=== PATIENT | female | born 1935 | race Caucasian/White ===

== ENCOUNTER 2019-09-15 10:37 | Outpatient (CLI) | payer MEDICARE, SELFPAY ==
[2019-09-15 10:50] LABS: Basophils Percent Auto 0.6 % (0.2-1.2); Eosinophils Absolute Auto 0.1 K/mm3 (0-0.3); Eosinophils Percent Auto 0.9 % (0-4.4); Hematocrit 47.3 % (37.0-47.0); Hemoglobin 15.8 g/dL (12.0-15.0); Immature Granulocyte Absolute 0.02 K/mm3 (0.00-0.031); Immature Granulocyte Percent A 0.3 % (0-0.5); Lymphocytes Absolute Auto 0.86 K/mm3 (0.9-3.2); Lymphocytes Percent Auto 12.9 % (18.3-44.2); Mean Corpuscular HGB Conc 33.4 g/dl (32-36); Mean Corpuscular Hemoglobin 30.8 pg (26-34); Mean Corpuscular Volume 92.2 fl (80-100); Mean Platelet Volume 11.1 fl (7.4-10.4); Monocytes Absolute Auto 0.7 K/mm3 (0.1-0.6); Neutrophils Percent Auto 75.3 % (45.5-73.1); Platelet Count Result 207 k/mm3 (150-375); Red Blood Count 5.13 M/mm3 (4.2-5.4); Red Cell Distribution Width 12.7 % (11.5-14.5); White Blood Count 6.7 K/mm3 (4.5-10.0)
[2019-09-15 10:53] LABS: Blood Urea Nitrogen 25 mg/dL (8-26); Carbon Dioxide 27 mmol/L (22-30); Chloride 102 mmol/L (98-109); Estimated Glomerular Filt Rate 60; Glucose 93 mg/dL (70-105); Potassium 4.4 mmol/L (3.5-4.9); Sodium 141 mmol/L (138-146)
[2019-09-15 11:54] LABS: Alanine Aminotransferase 16 U/L (4-35); Albumin Level 4.5 g/dL (3.5-5.1); Alkaline Phosphatase 54 U/L (38-126); Aspartate Amino Transferase 15 U/L (14-36); Bilirubin,Total 0.6 mg/dL (0.2-1.3); Blood Urea Nitrogen 24 mg/dL (7-17); Calcium 9.7 mg/dL (8.4-10.2); Carbon Dioxide 27 mmol/L (22-30); Chloride 101 mmol/L (98-107); Estimated Glomerular Filt Rate > 60; Glucose 96 mg/dL (65-105); Potassium 4.7 mmol/L (3.4-5.0); Sodium 137 mmol/L (137-145)
== END 2019-09-15 10:38 | disposition home or self-care (01) ==
LOC: ANHLAB 10:38
PROVIDERS: PCP Internal Medicine; Visit Provider Internal Medicine Hematology & Oncology
DX: D68.59 Other primary thrombophilia (principal)
CPT/HCPCS: 36415; 80048; 80053; 85025

== ENCOUNTER 2019-11-12 07:22 | Outpatient (CLI) | payer MEDICARE, SELFPAY ==
--- NOTE | 2019-11-12 | ECHO_ITS ---
Patient Info Name: Dee Dee Sánchez Age: 83 years : 1935 Gender: Female Ht: 64 in Wt: 214 lbs BSA: 2.14 m2 HR: 69 bpm BP: 154 / 81 mmHg Heart Rhythm: Sinus Rhythm Exam Date: 11/12/2019 10:26 AM Exam Location: [facility] Pulmonary Patient Status: Outpatient Admit Date: 11/12/2019 Staff Ordering Physician: PHYSICIAN NOT ON STAFF, NONSTAFF Clinical Laboratory Service Teacher: Lula Grier RDCS Attending Provider: PHYSICIAN NOT ON STAFF, NONSTAFF Exam Type: CA echo doppler color flow Study Info Indications - CHRONIC PULMONARY EMPHYSEMA R06.02 - Shortness of breath Complete two-dimensional, color flow and Doppler transthoracic echocardiogram is performed. Summary 1. Complete two-dimensional, color flow and Doppler transthoracic echocardiogram is performed. 2. Left ventricular chamber dimension is normal. 3. Left ventricular systolic function is normal, estimated at 60-65%. 4. There is mildly increased left ventricular wall thickness. 5. The left ventricular diastolic function is grade I diastolic dysfunction. 6. E/e' 22 is elevated. 7. Left atrial chamber dimension is mildly enlarged. 8. There is mild aortic valve sclerosis. 9. There is mild aortic valve regurgitation. 10. The mitral valve has moderately calcified annulus. 11. No pulmonary hypertension, estimated pulmonary arterial systolic pressure is 33 mmHg. Left Ventricle E/e' 22 is elevated. Left ventricular chamber dimension is normal. Left ventricular systolic function is normal, estimated at 60-65%. There is mildly increased left ventricular wall thickness. The left ventricular diastolic function is grade I diastolic dysfunction. Right Ventricle Right ventricular chamber dimension is normal. Right ventricular systolic function is normal. Left Atria Left atrial chamber dimension is mildly enlarged. Right Atria Right atrial chamber dimension is normal. Aortic Valve The aortic valve is trileaflet. There is mild aortic valve sclerosis. There is no aortic valve stenosis. There is mild aortic valve regurgitation. Pulmonic Valve There is no pulmonic regurgitation. Mitral Valve The mitral valve has moderately calcified annulus. There is no mitral valve stenosis. There is no mitral valve regurgitation. Tricuspid Valve There is no tricuspid valve regurgitation. No pulmonary hypertension, estimated pulmonary arterial systolic pressure is 33 mmHg. Pericardium/Pleural There is no pericardial effusion. Inferior Vena Cava Normal inferior vena cava with >50% collapse upon inspiration consistent with normal right atrial pressure, 5 mmHg. Aorta The aortic root size at the sinus of Valsalva is normal. Left Ventricular Outflow Tract Name Value Normal LVOT 2D LVOT Diameter 2.0 cm LVOT Doppler LVOT Peak Gradient 5 mmHg LVOT Mean Gradient 2 mmHg LVOT VTI 29 cm LVOT VTI/AV VTI Ratio 0.8 LVOT Stroke Volume 92 ml LVOT CO 11.7 l/min LVOT CI
--- NOTE | 2019-11-18 21:21 | P.PCNPFT_ITS ---
PFT Interpretation PFT Interpretation: DOS: 11/12/2019 REQUESTING: Dr Sergio Valenzuela DO REASON FOR TESTING: Chronic pulmonary embolism PULMONARY FUNCTION TESTS Spirometry: Normal spirometry without response to bronchodilator. FEV1 112% predicted. Lung volumes: TLC 88%, RV 88%, no restriction and no air trapping. Airway re sistance 137% increased. Diffusion: DLCO 70%, mildly decreased. Flow volume loop: Normal. IMPRESSION: Normal spirometry, lung volumes with mild decrease in DLCO. Increase in airway resistance. Compared to a study 08/06/2018 values are similar. DLCO was 64%, now 70% Airway resistance was 141%, now 137%, similar. Juliette Horton MD
--- NOTE | 2019-11-18 21:30 | WPDSIXMINUTE ---
Six Minute Walk Six Minute Walk: DOS: 11/12/2019 REQUESTING: Sergio Valenzuela DO REASON FOR TESTING: Chronic pulmonary embolism SIX MINUTE WALK This test was conducted per ATS guidelines. The initial saturation was 96%and pulse was 63. The patient walked for 6 minutes without stopping, with final saturation 96% and pulse 88. Distance walked was 600 feet / 182 meters. IMPRESSION: No supplemental oxygen indicated with exertion.
== END 2019-11-12 07:23 | disposition home or self-care (01) ==
PROVIDERS: PCP Internal Medicine
DX: I27.82 Chronic pulmonary embolism (principal); I34.0 Nonrheumatic mitral (valve) insufficiency; I35.1 Nonrheumatic aortic (valve) insufficiency
CPT/HCPCS: 93306; 94060; 94618; 94726; 94729

== ENCOUNTER 2020-06-28 13:09 | Outpatient (CLI) | payer MEDICARE, SELFPAY ==
[2020-06-28 13:25] LABS: Basophils Percent Auto 0.3 % (0.2-1.2); Eosinophils Absolute Auto 0.2 K/mm3 (0-0.3); Eosinophils Percent Auto 2.9 % (0-4.4); Hematocrit 46.8 % (37.0-47.0); Hemoglobin 15.5 g/dL (12.0-15.0); Lymphocytes Absolute Auto 1.03 K/mm3 (0.9-3.2); Lymphocytes Percent Auto 17.4 % (18.3-44.2); Mean Corpuscular HGB Conc 33.1 g/dl (32-36); Mean Corpuscular Volume 90.5 fl (80-100); Mean Platelet Volume 10.7 fl (7.4-10.4); Monocytes Absolute Auto 0.5 K/mm3 (0.1-0.6); Monocytes Percent Auto 7.9 % (2.6-8.5); Neutrophils Absolute Auto 4.2 K/mm3 (1.3-6.7); Neutrophils Percent Auto 71.5 % (45.5-73.1); Platelet Count Result 225 k/mm3 (150-375); Red Blood Count 5.17 M/mm3 (4.2-5.4); Red Cell Distribution Width 13.6 % (11.5-14.5); White Blood Count 5.9 K/mm3 (4.5-10.0)
== END 2020-06-28 13:10 | disposition home or self-care (01) ==
LOC: ANHLAB 13:10
PROVIDERS: PCP Internal Medicine; Visit Provider Internal Medicine Hematology & Oncology
DX: D75.1 Secondary polycythemia (principal)
CPT/HCPCS: 36415; 85025

== ENCOUNTER → 2020-08-18 11:16 | Outpatient (CLI) | payer MEDICARE, SELFPAY ==
--- NOTE | ~2020-08-18 | MM_ITS ---
EXAMINATION: MM screening rayray BI w wilfrido HISTORY: Screening mammogram TECHNIQUE: Craniocaudal and mediolateral oblique 3-D tomosynthesis images were obtained and synthetic 2-D images were generated. CAD analysis was submitted and interpreted. COMPARISON: No prior mammogram is available for comparison at this institution. BREAST PARENCHYMAL COMPOSITION: The breasts are almost entirely fatty. FINDINGS: Scattered bilateral benign calcifications. There is no evidence of suspicious mass, calcifi cation, or architectural distortion to suggest malignancy in either breast. There has been no suspici ous interval change. IMPRESSION: 1. No mammographic evidence of malignancy. 2. Recommend routine screening mammography in one year. BI-RADS Category 2: Benign finding(s). Reviewed, dictated and finalized at location A.
== END ==
PROVIDERS: Visit Provider Internal Medicine
DX: Z12.31 Encounter for screening mammogram for malignant neoplasm of breast (principal)
CPT/HCPCS: 77063; 77067

== ENCOUNTER 2021-02-07 12:35 | Outpatient (CLI) | payer MEDICARE, SELFPAY ==
[2021-02-07 13:01] LABS: Basophils Absolute Auto 0.1 K/mm3 (0.0-0.1); Basophils Percent Auto 0.8 % (0.2-1.2); Eosinophils Absolute Auto 0.1 K/mm3 (0-0.3); Eosinophils Percent Auto 1.4 % (0-4.4); Hematocrit 44.3 % (37.0-47.0); Immature Granulocyte Absolute 0.01 K/mm3 (0.00-0.031); Immature Granulocyte Percent A 0.2 % (0-0.5); Mean Corpuscular HGB Conc 33.9 g/dl (32-36); Mean Corpuscular Hemoglobin 30.2 pg (26-34); Mean Corpuscular Volume 89.3 fl (80-100); Mean Platelet Volume 10.6 fl (7.4-10.4); Monocytes Absolute Auto 0.7 K/mm3 (0.1-0.6); Monocytes Percent Auto 10.9 % (2.6-8.5); Neutrophils Absolute Auto 4.7 K/mm3 (1.3-6.7); Neutrophils Percent Auto 72.7 % (45.5-73.1); Platelet Count Result 231 k/mm3 (150-375); Red Blood Count 4.96 M/mm3 (4.2-5.4); Red Cell Distribution Width 13.2 % (11.5-14.5); White Blood Count 6.4 K/mm3 (4.5-10.0)
== END 2021-02-07 12:36 | disposition home or self-care (01) ==
LOC: ANHLAB 12:37
PROVIDERS: Visit Provider Internal Medicine Hematology & Oncology
DX: D75.1 Secondary polycythemia (principal)
CPT/HCPCS: 36415; 85025

== ENCOUNTER 2021-08-01 10:31 | Outpatient (CLI) | payer MEDICARE, SELFPAY ==
[2021-08-01 10:49] LABS: Basophils Percent Auto 0.4 % (0.2-1.2); Eosinophils Absolute Auto 0.2 K/mm3 (0-0.3); Eosinophils Percent Auto 2.5 % (0-4.4); Hemoglobin 15.3 g/dL (12.0-15.0); Immature Granulocyte Absolute 0.02 K/mm3 (0.00-0.031); Immature Granulocyte Percent A 0.3 % (0-0.5); Lymphocytes Percent Auto 12.6 % (18.3-44.2); Mean Corpuscular HGB Conc 32.6 g/dl (32-36); Mean Corpuscular Volume 92.2 fl (80-100); Mean Platelet Volume 10.8 fl (7.4-10.4); Monocytes Absolute Auto 0.7 K/mm3 (0.1-0.6); Monocytes Percent Auto 9.7 % (2.6-8.5); Neutrophils Absolute Auto 5.3 K/mm3 (1.3-6.7); Neutrophils Percent Auto 74.5 % (45.5-73.1); Platelet Count Result 229 k/mm3 (150-375); Red Cell Distribution Width 12.7 % (11.5-14.5); White Blood Count 7.2 K/mm3 (4.5-10.0)
[2021-08-01 10:54] LABS: Blood Urea Nitrogen 21 mg/dL (8-26); Carbon Dioxide 28 mmol/L (22-30); Chloride 102 mmol/L (98-109); Estimated Glomerular Filt Rate 60; Glucose 95 mg/dL (70-105); Ionized Calcium (POC) 1.21 mmol/L (1.11-1.31); Potassium 4.8 mmol/L (3.5-4.9); Sodium 139 mmol/L (138-146)
== END 2021-08-01 10:32 | disposition home or self-care (01) ==
PROVIDERS: Visit Provider Internal Medicine Hematology & Oncology
DX: D75.1 Secondary polycythemia (principal)
CPT/HCPCS: 36415; 80047; 85025

== ENCOUNTER → 2021-12-09 12:42 | Outpatient (CLI) | payer MEDICARE, SELFPAY ==
--- NOTE | ~2021-12-09 | MM_ITS ---
EXAMINATION: MM screening [facility] BI w wilfrido HISTORY: Screening mammogram TECHNIQUE: Craniocaudal and mediolateral oblique 3-D tomosynthesis images were obtained and synthetic 2-D images were generated. CAD analysis was submitted and interpreted. COMPARISON: 08/18/2020, 11/29/2016, 11/11/2015 bilateral screening mammogram examinations BREAST PARENCHYMAL COMPOSITION: The breasts are almost entirely fatty. FINDINGS: There is a suspicious mass in the posterior upper outer right breast. Diagnostic right mamm ogram and right breast ultrasound examination are recommended. Otherwise there is no evidence of suspicious mass, calcification, or architectural distortion to sugg est malignancy in either breast. There has been no other suspicious interval change. IMPRESSION: 1. Suspicious 5 mm mass in the posterior upper outer right breast 2. Diagnostic right mammogram and right breast ultrasound examination are recommended. BI-RADS Category 0: Incomplete: Needs additional imaging evaluation. Reviewed, dictated and finalized at location A. IMPRESSION: 1. Suspicious 5 mm mass in the posterior upper outer right breast 2. Diagnostic right mammogram and right breast ultrasound examination are recom mended. BI-RADS Category 0: Incomplete: Needs additional imaging evaluation.
== END ==
PROVIDERS: PCP Internal Medicine; Visit Provider Internal Medicine
DX: Z12.31 Encounter for screening mammogram for malignant neoplasm of breast (principal); R92.8 Other abnormal and inconclusive findings on diagnostic imaging of breast
CPT/HCPCS: 77063; 77067

== ENCOUNTER 2022-01-30 10:33 | Outpatient (CLI) | payer MEDICARE, SELFPAY ==
[2022-01-30 10:47] LABS: Basophils Percent Auto 0.4 % (0.2-1.2); Eosinophils Absolute Auto 0.1 K/mm3 (0-0.3); Eosinophils Percent Auto 0.7 % (0-4.4); Hemoglobin 14.7 g/dL (12.0-15.0); Immature Granulocyte Absolute 0.01 K/mm3 (0.00-0.031); Immature Granulocyte Percent A 0.1 % (0-0.5); Lymphocytes Absolute Auto 0.69 K/mm3 (0.9-3.2); Lymphocytes Percent Auto 10.1 % (18.3-44.2); Mean Corpuscular HGB Conc 33.4 g/dl (32-36); Mean Corpuscular Hemoglobin 31.1 pg (26-34); Mean Corpuscular Volume 93.2 fl (80-100); Mean Platelet Volume 10.8 fl (7.4-10.4); Monocytes Absolute Auto 0.7 K/mm3 (0.1-0.6); Monocytes Percent Auto 10.6 % (2.6-8.5); Neutrophils Absolute Auto 5.3 K/mm3 (1.3-6.7); Neutrophils Percent Auto 78.1 % (45.5-73.1); Platelet Count Result 228 k/mm3 (150-375); Red Blood Count 4.72 M/mm3 (4.2-5.4); Red Cell Distribution Width 12.8 % (11.5-14.5); White Blood Count 6.8 K/mm3 (4.5-10.0)
[2022-01-30 10:51] LABS: Blood Urea Nitrogen 22 mg/dL (8-26); Carbon Dioxide 30 mmol/L (22-30); Chloride 102 mmol/L (98-109); Estimated Glomerular Filt Rate > 60; Glucose 97 mg/dL (70-105); Ionized Calcium (POC) 1.22 mmol/L (1.11-1.31); Potassium 4.1 mmol/L (3.5-4.9); Sodium 141 mmol/L (138-146)
== END 2022-01-30 10:34 | disposition home or self-care (01) ==
PROVIDERS: PCP Internal Medicine; Visit Provider Internal Medicine Hematology & Oncology
DX: D75.1 Secondary polycythemia (principal)
CPT/HCPCS: 36415; 80047; 85025

== ENCOUNTER → 2022-02-17 13:39 | Outpatient (CLI) | payer MEDICARE, SELFPAY ==
--- NOTE | ~2022-02-17 | MMUS_ITS ---
EXAMINATION: MM diagnostic rayray RT w wilfrido, US breast RT limited HISTORY: Right breast mass on screening mammogram TECHNIQUE: Additional 3-D tomosynthesis images of the right breast were performed and synthetic 2-D i mages were generated. CAD analysis was submitted and interpreted. High resolution limited right breas t ultrasound was performed. COMPARISON: 12/09/2021, 08/18/2020, 11/29/2016, 11/11/2015 FINDINGS: MAMMOGRAPHIC FINDINGS: There is a 6 mm oval, circumscribed, equal density mass in the posterior third of the outer breast at the 9:00 location 12 cm from the nipple. No suspicious calcification or architectural distortion are identified. ULTRASOUND: There is an 8 mm x 4 mm oval, circumscribed, parallel, hypoechoic mass with no posterior features or internal vascularity at the 10:00 location 8 cm from the nipple. IMPRESSION: 1. Indeterminate right breast mass. 2. Ultrasound-guided biopsy is recommended. BI-RADS category 4, suspicious findings. Reviewed, dictated and finalized at location A. ODITY BROKER IMPRESSION: 1. Indeterminate right breast mass. 2. Ultrasound-guided biopsy is recommended. BI-RADS category 4, suspicious findings.
== END ==
PROVIDERS: PCP Internal Medicine; Visit Provider Internal Medicine
DX: R92.8 Other abnormal and inconclusive findings on diagnostic imaging of breast (principal)
CPT/HCPCS: 76642; 77061; 77065; G0279

== ENCOUNTER 2022-06-09 10:42 | Outpatient (CLI) | payer MEDICARE, SELFPAY ==
[2022-06-09 11:06] LABS: Basophils Percent Auto 0.3 % (0.2-1.2); Eosinophils Percent Auto 0.4 % (0-4.4); Hematocrit 44.1 % (37.0-47.0); Hemoglobin 14.7 g/dL (12.0-15.0); Immature Granulocyte Absolute 0.03 K/mm3 (0.00-0.031); Immature Granulocyte Percent A 0.3 % (0-0.5); Lymphocytes Absolute Auto 0.89 K/mm3 (0.9-3.2); Lymphocytes Percent Auto 9.7 % (18.3-44.2); Mean Corpuscular HGB Conc 33.3 g/dl (32-36); Mean Corpuscular Hemoglobin 30.8 pg (26-34); Mean Corpuscular Volume 92.3 fl (80-100); Mean Platelet Volume 10.9 fl (7.4-10.4); Monocytes Absolute Auto 0.8 K/mm3 (0.1-0.6); Neutrophils Absolute Auto 7.4 K/mm3 (1.3-6.7); Neutrophils Percent Auto 80.3 % (45.5-73.1); Platelet Count Result 215 k/mm3 (150-375); Red Blood Count 4.78 M/mm3 (4.2-5.4); Red Cell Distribution Width 13.2 % (11.5-14.5); White Blood Count 9.2 K/mm3 (4.5-10.0)
[2022-06-09 11:11] LABS: Blood Urea Nitrogen 25 mg/dL (8-26); Carbon Dioxide 29 mmol/L (22-30); Chloride 101 mmol/L (98-109); Estimated Glomerular Filt Rate > 60; Glucose 114 mg/dL (70-105); Ionized Calcium (POC) 1.28 mmol/L (1.11-1.31); Potassium 4.3 mmol/L (3.5-4.9); Sodium 139 mmol/L (138-146)
[2022-06-09 14:38] LABS: Alanine Aminotransferase 17 U/L (6-35); Albumin Level 4.2 g/dL (3.5-5.1); Alkaline Phosphatase 51 U/L (38-126); Anion Gap 4 mmol/L (8-16); Aspartate Amino Transferase 14 U/L (14-36); Bilirubin,Total 0.7 mg/dL (0.2-1.3); Blood Urea Nitrogen 25 mg/dL (7-17); Carbon Dioxide 33 mmol/L (22-30); Chloride 102 mmol/L (98-107); Estimated Glomerular Filt Rate > 60; Glucose 108 mg/dL (65-110); Potassium 4.4 mmol/L (3.4-5.0); Sodium 139 mmol/L (137-145)
== END 2022-06-09 10:43 | disposition home or self-care (01) ==
LOC: ANHLAB 10:44
PROVIDERS: PCP Internal Medicine; Visit Provider Internal Medicine Hematology & Oncology
DX: D75.1 Secondary polycythemia (principal)
CPT/HCPCS: 36415; 80047; 80053; 85025

== ENCOUNTER 2022-07-18 09:37 | Outpatient (CLI) | payer MEDICARE, SELFPAY ==
--- NOTE | ~2022-07-18 | XR_ITS ---
EXAMINATION: XR chest 2V Exam Date/Time: 07/18/2022 11:10 CDT HISTORY: SOB ON EXERTION Comparison: 08/06/2018. RESULT: Lines, tubes, and devices: Cholecystectomy clips. Lungs and pleura: Clear. Scar in the right posterior costophrenic angle. Cardiomediastinal silhouette: Stable. Calcified hilar and mediastinal nodes. Chronic right hemidiaph ragm elevation. Other: No acute osseous or upper abdominal finding. IMPRESSION: No acute cardiopulmonary process. Reviewed, dictated and finalized at location K.
--- NOTE | 2022-07-18 12:16 | WPDPFTINT ---
PFT Procedure Performed PFT Procedure Performed Spirometry with Pre/Post Bronchodilator Plethysmography (Lung Vol) Diffusing Cap (DLCO) Flow Vol Loop PFT Interpretation This is a pulmonary function test with pre and post-bronchodilator spirometry, plethysmography and diffusing capacity. The test was performed and results interpreted in accordance with the 2019 and 2005 ATS/ERS Task Force guidelines respectively using the Global Lung Function Initiative-2012 reference equations. Patient demonstrated good effort and cooperation. Reproducibility criteria were met. The quality of the pre bronchodilator spirometry maneuver was Grade A and post bronchodilator spirometry maneuver was Grade A. Findings: Spirometry: The contour the inspiratory and expiratory flow tracing are normal. The pre bronchodilator FVC is 2.13 L, 88% predicted. The pre bronchodilator FEV1 is 1.86 L, 102% predicted. The pre bronchodilator FEV1: FVC ratio is 87%. The post bronchodilator FVC is 2.17 L, representing a 2% increase. The post bronchodilator FEV1 is 1.91 L, representing a 3% increase. The post bronchodilator FEV1: FVC ratio is 88%. Plethysmography: The total lung capacity is 3.74 L, 74% predicted. Functional residual capacity is 1.67 L, 57% predicted. The residual volume is 1.24 L, 50% predicted. Diffusing capacity: The diffusing capacity unadjusted for hemoglobin and carboxyhemoglobin is 12.6, 67% predicted. The diffusing capacity adjusted for alveolar volume is 3.79, 94% predicted. In comparison to previous pulmonary function testing on 11/12/2019 the post bronchodilator FVC is unchanged from 2.21 L to 2.17 L. The post bronchodilator FEV1 is unchanged from 1.89 L to 1.91 L. The total lung capacity is unchanged from 4.14 L to 3.74 L. The functional residual capacity is decreased from 2.12 L to 1.67 L. The residual volume is decreased from 1.79 L to 1.24 L. The diffusing capacity unadjusted for hemoglobin and carboxyhemoglobin is decreased from 15.6 to 12.6. The diffusing capacity adjusted for alveolar volume is decreased from 4.43 to 3.79. Impression: There is a mild restrictive ventilatory abnormality with a normal FEV1. The spirometry is normal without evidence of an obstructive abnormality. There is no significant improvement after inhaling a single dose of albuterol. The diffusing capacity is normal. When compared to previous pulmonary function test on 11/12/2019 there has been a greater than anticipated time dependent decrease in the functional residual capacity, residual volume and diffusing capacity with no significant change in the FVC, FEV1 or total lung capacity. Clinical correlation is recommended.
== END 2022-07-18 09:38 | disposition home or self-care (01) ==
PROVIDERS: PCP Internal Medicine; Visit Provider Student in an Organized Health Care Education/Training Program
DX: R06.09 Other forms of dyspnea (principal); R94.2 Abnormal results of pulmonary function studies
CPT/HCPCS: 71046; 94060; 94726; 94729

== ENCOUNTER 2022-08-09 12:36 | Outpatient (CLI) | payer MEDICARE, SELFPAY ==
--- NOTE | 2022-08-09 | ECHO_ITS ---
Patient Info Name: Dee Dee Sánchez Age: 86 years : 1935 Gender: Female Ht: 65 in Wt: 190 lbs BSA: 2.02 m2 HR: 67 bpm BP: 134 / 60 mmHg Heart Rhythm: Sinus Rhythm Technical Quality: Poor Exam Date: 08/09/2022 1:08 PM Exam Location: [facility] Patient Status: Outpatient Admit Date: 08/09/2022 Staff Ordering Physician: Unique, Alexander Acosta MD Customer Trainer: ALLYN Attending Provider: Unique, Alexander Acosta MD Referring Physician: Raman, Los WOLFE; Exam Type: CA echo doppler color flow Study Info Indications - shortness of breath Complete two-dimensional, color flow and Doppler transthoracic echocardiogram is performed. Reason for Poor Study: poor echocardiographic windows Summary 1. Complete two-dimensional, color flow and Doppler transthoracic echocardiogram is performed. 2. Technically suboptimal study due to poor sonographic images. 3. Left ventricular chamber dimension is normal. 4. Left ventricular systolic function is normal, estimated at 55-60%. 5. The left ventricular diastolic function is grade I diastolic dysfunction. 6. E/e' 12 is mildly elevated. 7. Left atrial chamber dimension is moderately enlarged. 8. The mitral valve has moderately calcified annulus. 9. No pulmonary hypertension, estimated pulmonary arterial systolic pressure is 7 mmHg. 10. There is trivial pericardial effusion. Left Ventricle E/e' 12 is mildly elevated. Technically suboptimal study due to poor sonographic images. Left ventricular chamber dimension is normal. Left ventricular systolic function is normal, estimated at 55-60%. The left ventricular diastolic function is grade I diastolic dysfunction. Right Ventricle Right ventricular systolic function is normal and with normal TAPSE 3.0 cm. Right ventricular chamber dimension is normal. Left Atria Left atrial chamber dimension is moderately enlarged. Right Atria Right atrial chamber dimension is normal. Aortic Valve The aortic valve is not well visualized. Cannot determine number of aortic valve leaflets. There is no aortic valve stenosis. There is no aortic valve regurgitation. Pulmonic Valve There is no pulmonic regurgitation. Mitral Valve The mitral valve has moderately calcified annulus. There is no mitral valve stenosis. There is no mitral valve regurgitation. Tricuspid Valve There is no tricuspid valve regurgitation. No pulmonary hypertension, estimated pulmonary arterial systolic pressure is 7 mmHg. Pericardium/Pleural There is trivial pericardial effusion. Inferior Vena Cava Normal inferior vena cava with >50% collapse upon inspiration consistent with normal right atrial pressure, 5 mmHg. Aorta The aortic root size at the sinus of Valsalva is normal. Left Ventricular Outflow Tract Name Value Normal LVOT 2D LVOT Diameter 2.0 cm LVOT Doppler LVOT Peak Gradient 6 mmHg LVOT Mean Gradient 3 mmHg LVOT VTI 32 cm LVOT VTI/AV VTI Ratio 1.1 LVOT Stroke Volume 102 ml LVOT CO 6.7 l/min LVOT CI 3.3 l/min/m2 P
== END 2022-08-09 12:37 | disposition home or self-care (01) ==
PROVIDERS: PCP Internal Medicine; Referring Provider Student in an Organized Health Care Education/Training Program; Visit Provider Internal Medicine
DX: R06.09 Other forms of dyspnea (principal)
CPT/HCPCS: 93306

== ENCOUNTER 2023-01-10 10:52 | Outpatient (CLI) | payer MEDICARE, SELFPAY ==
[2023-01-10 11:21] LABS: Basophils Percent Auto 0.5 % (0.2-1.2); Eosinophils Absolute Auto 0.1 K/mm3 (0-0.3); Eosinophils Percent Auto 1.4 % (0-4.4); Hemoglobin 14.3 g/dL (12.0-15.0); Immature Granulocyte Absolute 0.02 K/mm3 (0.00-0.031); Immature Granulocyte Percent A 0.3 % (0-0.5); Lymphocytes Absolute Auto 0.88 K/mm3 (0.9-3.2); Lymphocytes Percent Auto 13.7 % (18.3-44.2); Mean Corpuscular HGB Conc 33.3 g/dl (32-36); Mean Corpuscular Hemoglobin 31.3 pg (26-34); Mean Corpuscular Volume 94.1 fl (80-100); Mean Platelet Volume 10.2 fl (7.4-10.4); Monocytes Absolute Auto 0.7 K/mm3 (0.1-0.6); Monocytes Percent Auto 10.1 % (2.6-8.5); Neutrophils Absolute Auto 4.7 K/mm3 (1.3-6.7); Platelet Count Result 227 k/mm3 (150-375); Red Blood Count 4.57 M/mm3 (4.2-5.4); Red Cell Distribution Width 13.6 % (11.5-14.5); White Blood Count 6.4 K/mm3 (4.5-10.0)
[2023-01-10 11:24] LABS: Blood Urea Nitrogen 29 mg/dL (8-26); Carbon Dioxide 29 mmol/L (22-30); Chloride 100 mmol/L (98-109); Estimated Glomerular Filt Rate > 60; Glucose 99 mg/dL (70-105); Ionized Calcium (POC) 1.23 mmol/L (1.11-1.31); Potassium 4.3 mmol/L (3.5-4.9); Sodium 140 mmol/L (138-146)
== END 2023-01-10 10:53 | disposition home or self-care (01) ==
LOC: ANHLAB 10:55
PROVIDERS: PCP Internal Medicine; Visit Provider Internal Medicine Hematology & Oncology
DX: D75.1 Secondary polycythemia (principal)
CPT/HCPCS: 36415; 80047; 85025

== ENCOUNTER 2023-01-10 12:26 | Outpatient (CLI) | payer MEDICARE, SELFPAY ==
--- NOTE | ~2023-01-10 | US_ITS ---
EXAMINATION: US venous doppler LE RT DATE: 01/10/2023 13:42 INDICATION: Deep vein thrombosis of femoral vein. TECHNIQUE: Grayscale ultrasound images without and with compression and Doppler ultrasound images of the right lower extremity veins were obtained. COMPARISON: Ultrasound 11/25/2018 FINDINGS: The visualized portions of right common femoral vein, profunda (deep) femoral vein, popliteal vein, p eroneal veins, posterior tibial veins, and greater saphenous vein outflow are patent. There is periph eral hyperechoic thrombus in femoral vein. IMPRESSION: 1. Deep vein thrombosis involving right femoral vein. The morphology suggests this thrombus may be c hronic. Reviewed, dictated and finalized at location E. IMPRESSION: 1. Deep vein thrombosis involving right femoral vein. The morphology suggests this thrombus may be chronic.
== END 2023-01-10 12:27 | disposition home or self-care (01) ==
PROVIDERS: PCP Internal Medicine; Visit Provider Internal Medicine Hematology & Oncology
DX: I82.411 Acute embolism and thrombosis of right femoral vein (principal)
CPT/HCPCS: 36415; 80047; 85025; 93971

== ENCOUNTER 2023-05-04 10:31 | Outpatient (CLI) | payer MEDICARE, SELFPAY ==
[2023-05-04 10:52] LABS: Basophils Percent Auto 0.6 % (0.2-1.2); Eosinophils Absolute Auto 0.1 K/mm3 (0-0.3); Eosinophils Percent Auto 0.7 % (0-4.4); Hematocrit 43.7 % (37.0-47.0); Hemoglobin 14.3 g/dL (12.0-15.0); Immature Granulocyte Absolute 0.02 K/mm3 (0.00-0.031); Immature Granulocyte Percent A 0.3 % (0-0.5); Lymphocytes Absolute Auto 0.92 K/mm3 (0.9-3.2); Lymphocytes Percent Auto 12.8 % (18.3-44.2); Mean Corpuscular HGB Conc 32.7 g/dl (32-36); Mean Corpuscular Hemoglobin 30.4 pg (26-34); Mean Corpuscular Volume 92.8 fl (80-100); Mean Platelet Volume 10.7 fl (7.4-10.4); Monocytes Absolute Auto 0.9 K/mm3 (0.1-0.6); Monocytes Percent Auto 13.1 % (2.6-8.5); Neutrophils Absolute Auto 5.2 K/mm3 (1.3-6.7); Neutrophils Percent Auto 72.5 % (45.5-73.1); Platelet Count Result 234 k/mm3 (150-375); Red Blood Count 4.71 M/mm3 (4.2-5.4); White Blood Count 7.2 K/mm3 (4.5-10.0)
== END 2023-05-04 10:32 | disposition home or self-care (01) ==
LOC: ANHLAB 10:35
PROVIDERS: PCP Internal Medicine; Visit Provider Internal Medicine Hematology & Oncology
DX: D75.1 Secondary polycythemia (principal)
CPT/HCPCS: 36415; 85025

== ENCOUNTER 2023-05-04 20:12 | Emergency (ER) | payer MEDICARE, SELFPAY ==
--- NOTE | ~2023-05-04 | XR_ITS ---
XR hip LT 2V w AP pelvis 05/05/2023 07:55 Indication: Left hip pain after fall Procedure: 3 views left hip Comparison: 02/13/2017 Findings: There has been progression of severe osteoarthritis of the left hip. No fracture or traumat ic malalignment. No focal soft tissue abnormality. No foreign bodies. Impression: 1: No acute fracture. Reviewed, dictated and finalized at location A. OYEE BENEFITS MANAGER Impression: 1: No acute fracture.
--- NOTE | ~2023-05-04 | XR_ITS ---
XR knee LT 3V 05/05/2023 07:56 Indication: Left knee pain after fall Procedure: 3 views left knee Comparison: 03/15/2016 Findings: There is mild-moderate osteoarthritis. Chondrocalcinosis. No fracture or traumatic malalign ment. No joint effusion. There is atherosclerosis. Impression: 1: No acute fracture. Reviewed, dictated and finalized at location A. ER BOOTS AND SHOES REPAIRER Impression: 1: No acute fracture.
--- NOTE | ~2023-05-04 | US_ITS ---
EXAMINATION:US venous doppler LE INDICATION:Left leg swelling and pain TECHNIQUE: Multiple grayscale, color flow and Doppler images of the left lower extremity deep venous systems were obtained and reviewed. COMPARISON:Ultrasound dated 09/21/2017 FINDINGS: There is deep venous thrombosis of the left superficial femoral vein. The common femoral an d popliteal veins demonstrate normal respiratory variation, augmentation and compressibility. Color flow is also seen within the posterior tibial, peroneal, greater saphenous and profunda veins. IMPRESSION: 1: Deep venous thrombosis of the left superficial femoral vein. Reviewed, dictated and finalized at location A. OLEUM REFINERY OPERATOR
[2023-05-04 20:37] VITALS: BP 140/59; PULSE 77; RESP 16; TEMP 36.7; O2SAT 94
--- NOTE | 2023-05-04 22:00 | PC.NURSE ---
Pt assisted to restroom by staff.
[2023-05-05 07:01] VITALS: BP 158/76; PULSE 71; RESP 22; O2SAT 97
[2023-05-05 07:06] VITALS: BP 158/76; PULSE 72; RESP 13; O2SAT 94
--- NOTE | 2023-05-05 07:18 | PC.NURSE ---
Report to RALPH Nguyen
--- NOTE | 2023-05-05 07:42 | ED.GENADULT ---
HPI - General Adult General Chief complaint: Extremity Injury, Lower Stated complaint: L leg and hip pain x 1 month Time Seen by Provider: 05/05/23 06:57 History of Present Illness HPI narrative: 87-year-old female presented to the emergency department for evaluation of left leg pain. Patient reports approximately 1 month ago she was getting off of the bus when she slipped and her left leg went underneath her. Patient states since then she has had left knee pain. Patient reports she feels the pain has been worsening. Patient has not had follow-up with primary care physician for this. Patient felt the pain had acutely worsened last night. Related Data Home Medications Medication Instructions Recorded Confirmed acetaminophen 325 mg capsule 325 mg PO Q6H PRN 01/22/19 citalopram 20 mg tablet 20 mg PO DAILY 01/22/19 ezetimibe 10 mg tablet 10 mg PO DAILY 01/22/19 folic acid 1 mg tablet 1 mg PO DAILY 01/22/19 hydrochlorothiazide 12.5 mg tablet 12.5 mg PO DAILY 01/22/19 methylcellulose (laxative) 500 mg 500 mg PO DAILY 01/22/19 tablet (Citrucel) mirabegron 50 mg tablet,extended 50 mg PO DAILY 01/22/19 release 24 hr (Myrbetriq) potassium chloride 20 mEq 20 meq PO DAILY 01/22/19 tablet,extended release Caltrate with Vitamin D3 01/31/19 amlodipine 5 mg tablet 5 DAILY 01/31/19 bisoprolol fumarate 10 mg tablet mg 01/31/19 cholestyramine-aspartame 4 gram 01/31/19 oral powder for susp in a packet (Cholestyramine Light) folic acid 1 mg tablet 01/31/19 mirabegron 50 mg tablet,extended mg PO 01/31/19 release 24 hr (Myrbetriq) Allergies Allergy/AdvReac Type Severity Reaction Status Date / Time No Known Allergies Allergy Verified 11/27/17 16:43 Review of Systems Review of Systems: All systems reviewed & are unremarkable except as noted in HPI and below PMFSH Past Medical History Medical History (Updated 05/05/23 @ 10:11 by Puneet Horne MD) Acute bilateral low back pain without sciatica Acute cystitis with hematuria Acute deep vein thrombosis (DVT) of femoral vein of right lower extremity Acute left-sided low back pain with left-sided sciatica Arthralgia of temporomandibular joint, unspecified side Bilateral leg pain Bilateral lower extremity edema Blood per rectum Chronic diarrhea Dietary counseling and surveillance (01/31/17) Dyspnea Encounter for follow-up of acute deep vein thrombosis (DVT) of right lower extremity Essential hypertension Fatigue Frequent falls Gait instability History of blood clots Hyperlipidemia Hypersomnia Iliotibial band syndrome Left hip pain Leg cramp Mixed stress and urge urinary incontinence Pain in left leg Vitamin D deficiency Family History Family History (Updated 08/02/16 @ 12:53 by DOCTOR UNKNOWN) Father Family history of coronary artery disease Social History Social History Smoking status: Never smoker Alcohol intake: never Exam Narrative: APPEARANCE: Well appearing, no pain, no distress, well-nourished. HEAD: normocephalic, atraumatic. EYES: PERRLA/EOMI, conjunctivae clear. NOSE: Normal no drainage NECK: Supple. No adenopathy, no masses. RESPIRATORY: Airway patent, respirations nonlabored. Clear to auscultation bilaterally, no rales, rhonchi, wheezing. CARDIOVASCULAR: Regular rate and rhythm without murmurs rubs or gallops. ABDOMINAL: Soft, nontender, nondistended, normal bowel sounds MUSCULOSKELETAL: Ecchymosis to left knee and tenderness to left thigh with no significant edema or erythema NEURO: Alert. Cranial nerves II through XII intact. Grossly SKIN: Warm, dry. Normal Color Course Vital Signs Vital signs: Vital Signs Temperature 98.1 F 05/04/23 20:37 Pulse Rate 77 05/04/23 20:37 Respiratory Rate 16 05/04/23 20:37 Blood Pressure 140/59 L 05/04/23 20:37 Pulse Oximetry 94 05/04/23 20:37 Oxygen Delivery Room Air 05/04/23 20:37 Temperature 98.4 F 05/05/23 11:20 Pulse Rate 76 02
[2023-05-05 08:11] VITALS: BP 141/62; PULSE 68; RESP 20; O2SAT 94
[2023-05-05 08:17] LABS: Basophils Percent Auto 0.3 % (0.2-1.2); Eosinophils Percent Auto 0.7 % (0-4.4); Hematocrit 43.1 % (37.0-47.0); Hemoglobin 14.1 g/dL (12.0-15.0); Immature Granulocyte Absolute 0.01 K/mm3 (0.00-0.031); Immature Granulocyte Percent A 0.2 % (0-0.5); Lymphocytes Absolute Auto 0.93 K/mm3 (0.9-3.2); Lymphocytes Percent Auto 15.3 % (18.3-44.2); Mean Corpuscular HGB Conc 32.7 g/dl (32-36); Mean Corpuscular Hemoglobin 30.5 pg (26-34); Mean Corpuscular Volume 93.3 fl (80-100); Mean Platelet Volume 11.2 fl (7.4-10.4); Monocytes Absolute Auto 0.9 K/mm3 (0.1-0.6); Monocytes Percent Auto 14.5 % (2.6-8.5); Neutrophils Absolute Auto 4.2 K/mm3 (1.3-6.7); Platelet Count Result 208 k/mm3 (150-375); Red Blood Count 4.62 M/mm3 (4.2-5.4); Red Cell Distribution Width 13.6 % (11.5-14.5); White Blood Count 6.1 K/mm3 (4.5-10.0)
[2023-05-05 08:30] LABS: Alanine Aminotransferase 12 U/L (6-35); Albumin Level 4.1 g/dL (3.5-5.1); Alkaline Phosphatase 58 U/L (38-126); Anion Gap 7 mmol/L (8-16); Aspartate Amino Transferase 17 U/L (14-36); Bilirubin,Total 0.7 mg/dL (0.2-1.3); Blood Urea Nitrogen 33 mg/dL (7-17); Carbon Dioxide 26 mmol/L (22-30); Chloride 104 mmol/L (98-107); Estimated CRCL calculation 42 ml/min; Estimated Glomerular Filt Rate 59; Glucose 110 mg/dL (65-110); Potassium 3.9 mmol/L (3.4-5.0); Sodium 137 mmol/L (137-145)
[2023-05-05 08:32] LABS: INR 2.5; Prothrombin Time 29.1 Seconds (11.1-14.7)
[2023-05-05] MEDS: ENOXAPARIN 100 MG/ML SYRINGE 86 MG SUB-Q (10:36)
[2023-05-05 10:43] VITALS: BP 157/75; PULSE 84; RESP 19; O2SAT 95
--- NOTE | 2023-05-05 10:49 | PCCCNOTE ---
Met with pt and her son,Miak regarding home injections of Lovenox 80 mg BID for 30 days to treat a blood clot. Informed them I spoke with PENG Sauer at [facility] and pt copay is $10.00 and they will have a partial prescription filled today with the remaining doses available on 05/07/23. Pt was able to perform self injection and per son, pt's friend, Valencia, who is a registered nurse will provide the BID injections for the pt after discharge. Informed Dr. Hrone of this information.
[2023-05-05 11:20] VITALS: BP 138/64; PULSE 76; RESP 20; TEMP 36.9; O2SAT 96
--- NOTE | 2023-05-07 08:25 | PCCCNOTE ---
Pt discharged 05/05/23 back home and arrangements confirmed with [facility] to follow pt. Call placed to pt and her son, Mika to verify arrangements.Home Health.
--- NOTE | 2023-05-09 09:22 | PCCCNOTE ---
Call placed to pt to follow up [facility] referral and she states she has an appointment for followup with Dr. Conde, maintenance analyst, this week and she does not want home health. She states she and her friend, who is an RN are doing just fine with the shots . [facility] also [facility] and [facility] visiting [facility] will be making a visit her. Verito Perez, clinical sales process manager at [facility] health.
== END 2023-05-05 11:23 ==
PROVIDERS: Emergency Provider Emergency Medicine; PCP Internal Medicine
DX: I82.412 Acute embolism and thrombosis of left femoral vein (principal); I10 Essential (primary) hypertension; E78.5 Hyperlipidemia, unspecified; E55.9 Vitamin D deficiency, unspecified; N39.46 Mixed incontinence
CPT/HCPCS: 36415; 73502; 73562; 80053; 85025; 85610; 85730; 93971; 96372; 99284; J1650

== ENCOUNTER 2023-05-31 10:50 | Outpatient (CLI) | payer MEDICARE, SELFPAY ==
[2023-05-31 11:08] LABS: Basophils Percent Auto 0.5 % (0.2-1.2); Eosinophils Absolute Auto 0.1 K/mm3 (0-0.3); Eosinophils Percent Auto 1.2 % (0-4.4); Hematocrit 41.7 % (37.0-47.0); Hemoglobin 13.5 g/dL (12.0-15.0); Immature Granulocyte Absolute 0.02 K/mm3 (0.00-0.031); Immature Granulocyte Percent A 0.3 % (0-0.5); Lymphocytes Absolute Auto 1.05 K/mm3 (0.9-3.2); Lymphocytes Percent Auto 15.8 % (18.3-44.2); Mean Corpuscular HGB Conc 32.4 g/dl (32-36); Mean Corpuscular Hemoglobin 30.6 pg (26-34); Mean Corpuscular Volume 94.6 fl (80-100); Mean Platelet Volume 10.6 fl (7.4-10.4); Monocytes Absolute Auto 0.8 K/mm3 (0.1-0.6); Monocytes Percent Auto 12.1 % (2.6-8.5); Neutrophils Absolute Auto 4.7 K/mm3 (1.3-6.7); Neutrophils Percent Auto 70.1 % (45.5-73.1); Platelet Count Result 270 k/mm3 (150-375); Red Blood Count 4.41 M/mm3 (4.2-5.4); Red Cell Distribution Width 13.2 % (11.5-14.5); White Blood Count 6.6 K/mm3 (4.5-10.0)
[2023-05-31 11:20] LABS: Blood Urea Nitrogen 18 mg/dL (8-26); Carbon Dioxide 31 mmol/L (22-30); Chloride 100 mmol/L (98-109); Estimated Glomerular Filt Rate > 60; Glucose 107 mg/dL (70-105); Ionized Calcium (POC) 1.29 mmol/L (1.11-1.31); Potassium 4.5 mmol/L (3.5-4.9); Sodium 141 mmol/L (138-146)
== END 2023-05-31 10:51 | disposition home or self-care (01) ==
LOC: ANHLAB 10:52
PROVIDERS: PCP Internal Medicine; Visit Provider Internal Medicine Hematology & Oncology
DX: D75.1 Secondary polycythemia (principal)
CPT/HCPCS: 36415; 80047; 85025

== ENCOUNTER 2023-07-30 10:26 | Outpatient (CLI) | payer MEDICARE, SELFPAY ==
--- NOTE | ~2023-07-30 | US_ITS ---
EXAMINATION: US venous doppler [facility] DATE: 07/30/2023 11:18 INDICATION: Left lower limb pain. Acute deep vein thrombosis of femoral vein of left lower extremity. TECHNIQUE: Grayscale ultrasound images without and with compression and Doppler ultrasound images of the left lower extremity veins were obtained. COMPARISON: Ultrasound 05/05/2023 FINDINGS: The visualized portions of left common femoral vein, profunda (deep) femoral vein, popliteal vein, pe roneal veins, posterior tibial veins, and greater saphenous vein outflow are patent. Again seen is th rombus in left femoral vein. IMPRESSION: 1. Deep vein thrombosis involving left femoral vein again seen. Reviewed, dictated and finalized at location A.
== END 2023-07-30 10:27 | disposition home or self-care (01) ==
PROVIDERS: PCP Internal Medicine; Visit Provider Internal Medicine Hematology & Oncology
DX: I82.412 Acute embolism and thrombosis of left femoral vein (principal)
CPT/HCPCS: 93971

== ENCOUNTER 2023-11-09 12:10 | Outpatient (CLI) | payer MEDICARE, SELFPAY ==
--- NOTE | ~2023-11-09 | US_ITS ---
EXAMINATION:US venous doppler LE LT INDICATION:History of DVT. Patient on blood thinners. TECHNIQUE: Multiple grayscale, color flow and Doppler images of the left lower extremity deep venous systems were obtained and reviewed. COMPARISON:Ultrasound dated 07/30/2023 FINDINGS: The common femoral, and popliteal veins demonstrate normal respiratory variation, augmentat ion and compressibility. There is persistent deep venous thrombosis in the left superficial femoral v ein. Color flow is also seen within the posterior tibial, peroneal, greater saphenous and profunda ve ins. IMPRESSION: 1: Persistent deep venous thrombosis of the left superficial femoral vein. Reviewed, dictated and finalized at location B.
== END 2023-11-09 12:11 | disposition home or self-care (01) ==
PROVIDERS: PCP Internal Medicine; Visit Provider Internal Medicine Hematology & Oncology
DX: I82.412 Acute embolism and thrombosis of left femoral vein (principal)
CPT/HCPCS: 93971

== ENCOUNTER 2023-11-20 11:19 | Outpatient (CLI) | payer MEDICARE, SELFPAY ==
[2023-11-20 11:33] LABS: Basophils Percent Auto 0.4 % (0.2-1.2); Eosinophils Percent Auto 0.5 % (0-4.4); Hematocrit 45.5 % (37.0-47.0); Hemoglobin 14.5 g/dL (12.0-15.0); Immature Granulocyte Absolute 0.01 K/mm3 (0.00-0.031); Immature Granulocyte Percent A 0.1 % (0-0.5); Lymphocytes Percent Auto 14.4 % (18.3-44.2); Mean Corpuscular HGB Conc 31.9 g/dl (32-36); Mean Corpuscular Hemoglobin 29.4 pg (26-34); Mean Corpuscular Volume 92.3 fl (80-100); Mean Platelet Volume 10.5 fl (7.4-10.4); Monocytes Percent Auto 12.8 % (2.6-8.5); Neutrophils Absolute Auto 5.5 K/mm3 (1.3-6.7); Neutrophils Percent Auto 71.8 % (45.5-73.1); Platelet Count Result 234 k/mm3 (150-375); Red Blood Count 4.93 M/mm3 (4.2-5.4); Red Cell Distribution Width 13.4 % (11.5-14.5); White Blood Count 7.6 K/mm3 (4.5-10.0)
[2023-11-20 11:37] LABS: Blood Urea Nitrogen 27 mg/dL (8-26); Carbon Dioxide 27 mmol/L (22-30); Chloride 104 mmol/L (98-109); Estimated Glomerular Filt Rate > 60; Glucose 93 mg/dL (70-105); Ionized Calcium (POC) 1.23 mmol/L (1.11-1.31); Potassium 4.7 mmol/L (3.5-4.9); Sodium 140 mmol/L (138-146)
== END 2023-11-20 11:20 | disposition home or self-care (01) ==
PROVIDERS: PCP Internal Medicine; Visit Provider Internal Medicine Hematology & Oncology
DX: D75.1 Secondary polycythemia (principal)
CPT/HCPCS: 36415; 80047; 85025

== ENCOUNTER 2023-12-27 10:48 | Outpatient (CLI) | payer MEDICARE, SELFPAY ==
--- NOTE | ~2023-12-27 | CT_ITS ---
CT Scan of the Chest without Contrast: Clinical Indication: Dyspnea Technique: Contiguous sections were acquired throughout the chest without intravenous contrast. Dose reduction technique was used on this scan by utilizing automated exposure control and iterative recon struction technique. The dose-length product (DLP) was 287.70 mGy-cm. Findings: There is no evidence of any significant mediastinal, hilar or axillary lymphadenopathy. Calcified med iastinal and hilar lymph nodes are present. Extensive coronary artery calcifications are present. There is no evidence of pleural or pericardial effusion. The lungs are clear. No pulmonary nodules or infiltrates are noted. Images through the upper abdomen reveal no abnormalities. Impression: No significant pulmonary abnormality. Reviewed, dictated and finalized at location . Impression: No significant pulmonary abnormality.
--- NOTE | 2023-12-27 11:25 | ECHO_ITS ---
Patient Info Name: Dee Dee Sánchez Age: 88 years : 1935 Gender: Female Ht: 63 in Wt: 189 lbs BSA: 1.99 m2 HR: 66 bpm BP: 127 / 72 mmHg Technical Quality: Fair Exam Date: 12/27/2023 11:44 AM Exam Location: Echo Lab Patient Status: Outpatient Admit Date: 12/27/2023 Staff Ordering Physician: Robin Turner MD Clinical Operations Leader: Berry Kapoor RDCS Attending Provider: Robin Turner MD Referring Physician: Yue GARCIA; Exam Type: CA echo doppler color flow Study Info Indications R06.09 - Other forms of dyspnea Complete two-dimensional, color flow and Doppler transthoracic echocardiogram is performed. Summary 1. Complete two-dimensional, color flow and Doppler transthoracic echocardiogram is performed. 2. Left ventricular chamber dimension is normal. 3. Left ventricular systolic function is normal, estimated at 65-70%. 4. The left ventricular diastolic function is grade I diastolic dysfunction. 5. E/e' 30 is significantly elevated. 6. Left atrial chamber dimension is moderately enlarged. 7. There is mild aortic valve sclerosis. 8. There is mild to moderate aortic valve regurgitation. 9. The mitral valve has moderately calcified annulus. 10. There is trace mitral valve regurgitation. 11. There is trace tricuspid valve regurgitation. 12. No pulmonary hypertension, estimated pulmonary arterial systolic pressure is 31 mmHg. Left Ventricle E/e' 30 is significantly elevated. Left ventricular chamber dimension is normal. Left ventricular systolic function is normal, estimated at 65-70%. The left ventricular diastolic function is grade I diastolic dysfunction. Right Ventricle Right ventricular systolic function is normal and with normal TAPSE 2.5 cm. Right ventricular chamber dimension is normal. Left Atria Left atrial chamber dimension is moderately enlarged. Right Atria Right atrial chamber dimension is normal. Aortic Valve The aortic valve is trileaflet. There is mild aortic valve sclerosis. There is no aortic valve stenosis. There is mild to moderate aortic valve regurgitation. Pulmonic Valve There is no pulmonic regurgitation. Mitral Valve The mitral valve has moderately calcified annulus. There is no mitral valve stenosis. There is trace mitral valve regurgitation. Tricuspid Valve There is trace tricuspid valve regurgitation. No pulmonary hypertension, estimated pulmonary arterial systolic pressure is 31 mmHg. Pericardium/Pleural There is no pericardial effusion. Inferior Vena Cava Normal inferior vena cava with >50% collapse upon inspiration consistent with normal right atrial pressure, 5 mmHg. Aorta The aortic root size at the sinus of Valsalva is normal. Left Ventricular Outflow Tract Name Value Normal LVOT 2D LVOT Diameter 1.9 cm LVOT Doppler LVOT Peak Velocity 108 cm/s LVOT Peak Gradient 5 mmHg LVOT Mean Gradient 2 mmHg LVOT VTI 23 cm LVOT VTI/AV VTI Ratio 0.7 LVOT Stroke Volume 64 ml LVOT CO 4.0 l/min LVOT CI
--- NOTE | 2023-12-28 08:51 | WPDSIXMINUTE ---
Six Minute Walk Procedure Procedure Performed Pulmonary Stress Test (6 min walk) Six Minute Walk Six Minute Walk: This 6 minute walk test was carried out with the patient breathing ambient air. The baseline pre walk oxyhemoglobin saturation was 96%. The patient walked 152 m with no stops during testing. During the walk the oxyhemoglobin saturation remained in the range of 95% to 96%. Impression: No evidence of oxyhemoglobin desaturation on this testing.
== END 2023-12-27 10:49 | disposition home or self-care (01) ==
LOC: ANHIMG 10:55
PROVIDERS: PCP Internal Medicine; Visit Provider Internal Medicine Pulmonary Disease
DX: R06.09 Other forms of dyspnea (principal); I35.1 Nonrheumatic aortic (valve) insufficiency
CPT/HCPCS: 71250; 93306; 94618

== ENCOUNTER 2024-02-13 10:11 | Outpatient (CLI) | payer MEDICARE, SELFPAY ==
--- NOTE | ~2024-02-13 | US_ITS ---
EXAMINATION: US venous doppler LE RT DATE: 02/13/2024 11:01 INDICATION: Acute deep venous anastomosis of the femoral vein of the right lower limb TECHNIQUE: Grayscale ultrasound images without and with compression and Doppler ultrasound images of the right lower extremity veins were obtained. COMPARISON: 01/10/2023 FINDINGS: The previously seen noncompressible thrombus in the right femoral vein has resolved. The visualized p ortions of right common femoral vein, profunda (deep) femoral vein, femoral vein, popliteal vein, per contreras trunk, posterior tibial veins, peroneal veins, gastrocnemius vein and greater saphenous vein ou tflow are all patent. IMPRESSION: 1. No deep venous thrombosis in the right lower limb with resolution of the prior thrombus in the ri ght femoral vein. Reviewed, dictated and finalized at location [facility] IMPRESSION: 1. No deep venous thrombosis in the right lower limb with resolution of the pr ior thrombus in the right femoral vein.
== END 2024-02-13 10:12 | disposition home or self-care (01) ==
LOC: ANHIMG 10:16
PROVIDERS: PCP Internal Medicine; Visit Provider Internal Medicine Hematology & Oncology
DX: I82.411 Acute embolism and thrombosis of right femoral vein (principal)
CPT/HCPCS: 93971

== ENCOUNTER 2024-04-20 14:21 | Emergency (ER) | payer MEDICARE, SELFPAY ==
--- NOTE | ~2024-04-20 | XR_ITS ---
HISTORY: bilateral hip pain, L>R COMPARISON: 11/28/2023 TECHNIQUE: 2 views of the bilateral hips along with an AP view of the pelvis FINDINGS: No acute fracture or dislocation is identified. Sclerosis of the femoral acetabular joint spaces bilaterally, consistent with severe degenerative dis ease. Age-appropriate mineralization. IMPRESSION: Severe degenerative disease bilaterally without acute fracture or dislocation Reviewed, dictated and finalized at location A. ER DOORS AND PANELS FABRICATOR
--- NOTE | ~2024-04-20 | CT_ITS ---
History: Fall PROCEDURE: CT cervical spine without intravenous contrast. COMPARISON: None TECHNIQUE: Multiple contiguous axial images of the cervical spine were performed without the administration of i ntravenous contrast. DLP: 212 mGy-cm FINDINGS: Preservation of the normal curvature of the cervical spine is identified. Significant degenerative disease is identified, with osteophyte formation, disc space narrowing, anky losis and endplate changes. This is most severe at the level of C5/C6. No acute fractures are present. The bilateral lung apices are unremarkable. No soft tissue abnormality is present. The airway is patent. Impression: Severe degenerative disease, without acute fracture. Redemonstration of the possible nondisplaced fracture of the occipital bone, which may also represent a prominent nutrient foramen in this location. Reviewed, dictated and finalized at location A. LEAD Impression: Severe degenerative disease, without acute fracture. Redemonstration of the possible nondisplaced fracture of the occipital bone, wh ich may also represent a prominent nutrient foramen in this location.
--- NOTE | ~2024-04-20 | CT_ITS ---
History: Fall PROCEDURE: CT head without contrast. COMPARISON: None TECHNIQUE: Axial imaging of the head performed from the skull base to the vertex without IV contrast. Sagittal a nd coronal reformations obtained. DLP: 681 mGy-cm FINDINGS: The ventricles are enlarged. The dilatation of the ventricles is proportional to the degree of sulcal prominence, not uncommon in the senescent brain. Decreased attenuation is identified within the periventricular white matter, likely secondary to micr ovascular ischemic disease, in a patient of this age. There is no mass, mass effect or midline shift. There is no abnormal extra-axial fluid collection or intracranial hemorrhage. Visualized paranasal sinuses are clear. The mastoid air cells are well aerated. An oblique lucency is identified within the left occipital bone which may be artifactual given the de gree of motion artifact. Alternatively, this may represent a nondisplaced fracture. No acute displaced fractures within the overlying cranium. Impression: No acute intracranial hemorrhage or suspicious mass effect. Findings within the left occipital bone which may be artifactual versus an acute nondisplaced fractur e. Repeat bone windows, if the patient is clinically able and if clinically, this will alter patient's c ourse. Reviewed, dictated and finalized at location A. IANCE ADJUSTER Impression: No acute intracranial hemorrhage or suspicious mass effect. Findings within the left occipital bone which may be artifactual versus an acut e nondisplaced fracture. Repeat bone windows, if the patient is clinically able and if clinically, this will alter patient's course.
[2024-04-20 14:22] VITALS: BP 137/63; PULSE 76; RESP 19; TEMP 36.6; O2SAT 98
--- OUTSIDE RECORDS SUMMARY | 2024-04-20 14:40 | XMS_ITS | Encounter Summary ---
Author Organization [facility] Address 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 Oncology and Hematology - Charanjit [address] [place] [address] [facility] [address] [place] [address] Mansoor Conde MD [address] [facility] [address] [place] [address] documented as of this encounter Visit Diagnoses Not on filedocumented in this encounter Care Teams Rotary Surface Grinder Relationship Specialty Start Date End Date Alexander Calhoun MD [address] [place] [phone] PCP - General Internal Medicine 05/29/18 documented as of this encounter
--- OUTSIDE RECORDS SUMMARY | 2024-04-20 14:40 | XMS_ITS | Referral Summary ---
Author Organization [facility] [address] Address [address] [place] [address] Care Team Providers Care Electronic Repair Troubleshooter Name Role Phone Alexander Calhoun MD Primary Care Provider [phone] Encounters Date Type Department Care Team Description 03/14/2024 1:30 PM BUFFET SERVER - 03/14/2024 11:59 PM BUFFET SERVER Hospital Encounter [facility] [place] - Breast Imaging [address] [facility] [address] [place] [address] Abnormal mammogram; Mass of right breast, unspecified quadrant Discharge Disposition: Discharge to home or self care from Last 3 Months Allergies Active Allergy Reactions Criticality Noted Date Comments Sulfa Stomach upset Low 08/08/2023 Medications bisoprolol (ZEBETA) 10 mg tablet Take 1 tablet (10 mg total) by mouth daily Active amLODIPine (NORVASC) 5 mg tablet Take 1 tablet (5 mg total) by mouth daily Active hydroCHLOROthia zide (MICROZIDE) 12.5 mg capsule Take 1 capsule (12.5 mg total) by mouth daily Active ezetimibe (ZETIA) 10 mg tablet Take 1 tablet (10 mg total) by mouth daily Active potassium chloride (KLOR-CON) 20 mEq packet Take 1 packet (20 mEq total) by mouth 2 (two) times a day Active citalopram (CeleXA) 20 mg tablet Take 1 tablet (20 mg total) by mouth daily Active calcium carbonate-vitam in D3 1,500 mg (600mg elemental) -800 unit per tablet Take 1 tablet by mouth daily Active loperamide (IMODIUM) 2 mg capsule Take 1 capsule (2 mg total) by mouth 4 (four) times a day as needed for diarrhea Active mirabegron ER (MYRBETRIQ) 25 mg tablet extended release 24 hr Take 1 tablet (25 mg total) by mouth daily Active fluticasone/ume clidin/vilanter (TRELEGY ELLIPTA INHAL) Inhale 25 mg daily Active rivaroxaban (XARELTO) 15 mg tablet Take 1 tablet (15 mg total) by mouth daily Active onabotulinumtox in A (BOTOX) 100 unit recon soln Inject 100 Units into the muscle as instructed once Active diphenoxylate-a tropine (LOMOTIL) 2.5-0.025 mg per tablet Take 1 tablet by mouth every 6 hours as needed Active folic acid (FOLVITE) 1 mg tablet Take 1 tablet (1 mg total) by mouth daily 30 tablet 11 9 Active vibegron (Gemtesa) 75 mg tablet Take 1 tablet by mouth daily 2 Active Active Problems Problem Noted Date Diagnosed Date Abnormal mammogram 12/25/2022 Diffusion capacity of lung (dl), decreased 08/22 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 History of pulmonary embolism 07/15/2018 Chronic obstructive pulmonary disease 07/15/2018 Chronic cough 07/15/2018 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 07/15/2018 Non-seasonal allergic rhinitis due to pollen 08/2018 Sleep disorder 07/15/2018 Shortness of breath 01/02/2017 Essential hypertension 01/02/2017 Obesity due to excess calories 01/02/2017 Pulmonary embolism 01/02/2017 Acute deep vein thrombosis ( DVT) of femoral vein of right lower extremity 07/06/2016 Baldness 10/13/2014 Inflamed seborrheic keratosis 10/13/2014 Basal cell carcinoma (BCC) of face 07/03/2014 Skin neoplasm 05/19/2014 Keratosis, senilis 12/09/2013 Basal cell carcinoma (BCC) of scalp 12/09/2013 Adenomatous polyp of colon 11/24/2011 Overview (07/12/2018): Overview: 12/2014: diminutive adenoma. Defer follow up screening colonoscopy on basis of age? 12/2011: Small adenoma. 07/2007: Small cecal adenoma, mild tic IH. 2002: IH, mild-mod tics. 1997: neg. Diarrhea 11/24/2011 Family history of colon cancer 11/24/2011 Overview (07/12/2018): Overview: Mom @ 79 Immunizations Name Administration Dates Next Due Influenza, Unspecified 12/14/2017 Social History Tobacco Use Types Packs/Day Years Used Date Smoking Tobacco: Never Smokeless Tobacco: Never Tobacco Cessation:Counseling Given: Not Answered Alcohol Use Standard Drinks/Week Comments No 0 (1 standard drink = 0.6 oz pur e alcohol) Comments No Sex and Gender Information Value Date Recorded Sex Assigned at Not on file Legal Sex Female 2:19 AM BUFFET SERVER Gender Identity Not on file Sexual Orientation Not on file Last Filed Vital Signs Vital Sign Reading Time Taken Comments Blood Pressure 115/64 08/22/2018 1:21 PM CDT Pulse 55 08/22/2018 1:21 PM CDT Temperature 36.1 C (97 F) 08/22/2018 1:21 PM CDT Respiratory Rate 18 08/22/2018 1:21 PM CDT Oxygen Saturation 95% 08/22/2018 1:21 PM CDT Inhaled Oxygen Concentration - - Weight 86.2 kg (190 lb) 08/08/2023 1:48 PM CDT Height 162.6 cm (5' 4 ) 08/08/2023 1:48 PM CDT Body Mass Index 32.61 08/08/2023 1:48 PM CDT Plan of Treatment Not on file Medical Devices Implanted Type Area Unit Reactor Operator Device Identifier Shelf Expiration Date Model / Serial / Lot Bard Peripheral Vascular Ultraclip Bard 17ga 10cm 2 Trigger Permanent Ultrasound [id number] - [id number] Implanted:Qty: 1 on 05/11/2022 at [facility] [employer] [id number] / / Procedures Procedure Name Priority Date/Time Associated Diagnosis Comments DIAGNOSTIC MAMMOGRAM BILATERAL W JEREMY Schedule Routine, Read Routine (OP Routine) 03/14/2024 3:04 PM BUFFET SERVER Abnormal mammogram Mass of right breast, unspecified quadrant from Last 3 Months Results * Diagnostic Mammogram Bilateral W Jeremy (03/14/2024 3:04 PM BUFFET SERVER) Anatomical Region Laterality Modality Breast Bilateral Mammography 03/14/2024 3:09 PM BUFFET SERVER Impressions 03/14/2024 3:09 PM BUFFET SERVER 1. Left breast calcifications are benign. 2. No evidence of malignancy in either breast. OVERALL FINAL ASSESSMENT: BI-RADS Category 2: Benign. RECOMMENDATION: Continued clinical follow-up is recommended. Dr. Gutierrez discussed the above findings and recommendations with the patient. Electronically signed by: Lula Gutierrez M.D. Narrative 03/14/2024 3:09 PM BUFFET SERVER EXAMINATION: BILATERAL DIGITAL DIAGNOSTIC MAMMOGRAM INCLUDING CAD AND BILATERAL DIGITAL BREAST TOMOSYNTHESIS HISTORY: 88-year-old woman here for short interval follow-up of probably benign left breast calcifications, followed from 2021. She has a history of benign right breast biopsy. COMPARISON: Multiple prior studies, most recently 08/08/2023 and dating back to 11/29/2016. TECHNIQUE: Full field digital mammographic views of BOTH breasts were performed, including computer aided detection (CAD) and BILATERAL digital breast tomosynthesis (DBT). BREAST PARENCHYMAL COMPOSITION: The breasts are almost entirely fatty. MAMMOGRAM FINDINGS: Calcifications in the upper inner quadrant of the left breast are stable from 2021 and benign. Other benign calcifications are seen elsewhere in both breasts. No suspicious mass, distortion, or calcification is seen in either breast. Procedure Note Lula Gutierrez MD - 03/14/2024 EXAMINATION: BILATERAL DIGITAL DIAGNOSTIC MAMMOGRAM INCLUDING CAD AND BILATERAL DIGITAL BREAST TOMOSYNTHESIS HISTORY: 88-year-old woman here for short interval follow-up of probably benign left breast calcifications, followed from 2021. She has a history of benign right breast biopsy. COMPARISON: Multiple prior studies, most recently 08/08/2023 and dating back to 11/29/2016. TECHNIQUE: Full field digital mammographic views of BOTH breasts were performed, including computer aided detection (CAD) and BILATERAL digital breast tomosynthesis (DBT). BREAST PARENCHYMAL COMPOSITION: The breasts are almost entirely fatty. MAMMOGRAM FINDINGS: Calcifications in the upper inner quadrant of the left breast are stable from 2021 and benign. Other benign calcifications are seen elsewhere in both breasts. No suspicious mass, distortion, or calcification is seen in either breast. IMPRESSION: 1. Left breast calcifications are benign. 2. No evidence of malignancy in either breast. OVERALL FINAL ASSESSMENT: BI-RADS Category 2: Benign. RECOMMENDATION: Continued clinical follow-up is recommended. Dr. Gutierrez discussed the above findings and recommendations with the patient. Electronically signed by: Lula Gutierrez M.D. Lexie Andrew UNDER TRIMMER IMG MAMMO PROCEDURES Final Result from Last 3 Months Insurance MEDICARE [facility] MED[facility] Address: [address] [address] [place] [address] [facility] MEDICARE [facility] MEDICARE [facility] MEDICARE Care Teams Electronic Repair Troubleshooter Relationship Specialty Start Date End Date Alexander Calhoun MD [address] [place], [place] [id number] PCP - General Internal Medicine 07/15/18
--- OUTSIDE RECORDS SUMMARY | 2024-04-20 14:40 | XMS_ITS | Encounter Summary ---
Author Organization [facility] Address 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 Gender Identity Not on file Sexual Orientation Not on file documented as of this encounter Plan of Treatment Upcoming Encounters Date Type Department Care Team (Late st Contact Info) Description 05/19/2024 1:00 PM CDT Office Visit [facility] Oncology and Hematology - Charanjit [address] [facility] [address] [place] [address] Mansoor Conde MD [address] [facility] [address] [place] [address] documented as of this encounter Visit Diagnoses Not on filedocumented in this encounter Care Teams Circus Laborer Relationship Specialty Start Date End Date Alexander Calhoun MD [address] [place] [phone] PCP - General Internal Medicine 05/29/18 documented as of this encounter
--- OUTSIDE RECORDS SUMMARY | 2024-04-20 14:40 | XMS_ITS | Encounter Summary ---
Author Organization [facility] Address [address] [place] [address] Care Team Providers Care Insole Taper Name Role Phone Alexander Calhoun MD Primary Care Provider [phone] Encounter Details Date Type Department Care Team (Late Contact Info) Description 09/06/2022 Nuenz Message Enc [facility] Medical [facility] [address] [place], [place] [id number] [employer], [facility] Provider Air Quality Message Social History Tobacco Use Types Packs/Day Years Used Date Smoking Tobacco: Never Smokeless Tobacco: Never Alcohol Use Standard Drinks/Week Comments No 0 (1 standard drink = 0.6 oz pur e alcohol) AUDIT-C Answer Date Recorded Frequency of Alcohol Consumption Never 05/22/2018 Average Number of Drinks Not on file 019 Frequency of Binge Drinking Not on file 05/10 PHQ-2 Answer Date Recorded Patient Health Questionnaire-2 Score 0 06/30/2022 Comments No Sex and Gender Information Value Date Recorded Sex Assigned at Not on file Legal Sex Female 4:58 PM CDT Gender Identity Not on file Sexual Orientation Not on file documented as of this encounter Plan of Treatment Upcoming Encounters Date Type Department Care Team (Late Contact Info) Description 05/07/2024 12:00 PM LEAD QUALITY CONTROL TECHNICIAN Office Visit [facility] Medical [facility] Family & Internal Medicine [address] [address] Alexander Calhoun MD [address] [place] [id number] documented as of this encounter Visit Diagnoses Not on filedocumented in this encounter Additional Health Concerns Assessment Noted Time PHQ-9 Depression Total Score: 6 04/24/19 23 11:42 AM LEAD QUALITY CONTROL TECHNICIAN documented as of this encounter Care Teams Insole Taper Relationship Specialty Start Date End Date Alexander Calhoun MD [address] [place] [id number] PCP - General INTERNAL MEDICINE 04/22/18 documented as of this encounter
--- OUTSIDE RECORDS SUMMARY | 2024-04-20 14:40 | XMS_ITS | Patient Health Record ---
Author Organization [facility] Health Services Address [address] [place] [address] Care Team Providers Care Supervisor Brine Name Role Phone NON STAFF, PHYSICIAN Primary Care Provider Unava ilable Allergies Allergen (clinical drug ingredient) Drug/Non Drug Allergy documented on EMR Reaction Allergy Type Onset Date Status Sulfa GI Upset Drug Allergy Active Reason For Referral No Information Medications Medication SIG (Take, Route, Frequency, Duration) Notes Start Date End Date Status Cholestyramine 4 GM 1 packet mixed with water or non-carbonated drink as needed Orally Once a day Active Caltrate 600+D3 Soft 600-800 MG-UNIT 2 tablets with a meal Orally Once a day Active Amoxicillin 500 MG 1 capsule Orally 2 times a day Active Bisoprolol Fumarate 10 MG 1 tablet Orall y Once a day for 30 day(s) Active Xarelto 10 MG 1 tablet with food Orally Once a day for 30 day(s) Active amLODIPine Besylate 5 MG 1 tablet Orally Once a day for 30 day(s) Active Vitamin D 25 MCG (1000 UT) 1 tablet Oral ly Once a day for 30 day(s) Active Vitamin B12 1000 MCG 1 Tablet Orally Once a day Active Trelegy Ellipta 100-62.5-25 MCG/INH 1 puff Inhalation Once a day Active Potassium Chloride ER 20 MEQ 1 tablet wi th food Orally Once a day for 30 day(s) Active Myrbetriq 50 MG 1 tablet Orally Once a day for 30 day(s) Active hydroCHLOROthiazide 25 MG 3 tablets in t he morning Orally Once a day Active Ezetimibe 10 MG 1 tablet Orally Once a day for 30 day(s) Active Citalopram Hydrobromide 20 MG 1 tablet O rally Once a day for 30 day(s) Active Folic Acid 1 MG 1 tablet Orally Once a day for 30 day(s) Not-Taking Immunizations Vaccine Route Administration Date Status Comme nts Influenza (Fluarix 6 months- Adult) Single Dose-Purchased Unknown 11/18/2013 Administered Influenza (Fluarix 6 months- Adult) Single Dose-Purchased Unknown 11/27/2015 Administered Influenza (Flulaval 6 months -Adult) Single Dose-State Unknown 01/08/2015 Administered Influenza (Flulaval 6 months -Adult) Single Dose-State Unknown 12/14/2017 Administered Influenza (FLUZONE HIGH DOSE, 65+) Unknown 12/22/2018 A dministered Pneumococcal (PNEUMOVAX 23)- Adult Unknown 01/14/2015 A dministered Zostavax Unknown 01/08/2015 Administered Social History Tobacco Use: Social History Observation Description Date Details (start date - stop date) Never Smoker NA - NA Sex Assigned At : Social History Observation Description Sex Assigned At Female Alcohol Screen Question Answer Notes Did you have a drink contain ing alcohol in the past year? Yes How often did you have a dri nk containing alcohol in the past year? 2 to 4 times a month (2 points) How many drinks did you have on a typical day when you were drinking in the past year? 1 or 2 drinks (0 point) How often did you have 6 or more drinks on one occasion in the past year? Never (0 point) Points 2 Interpretation Negative Tobacco Screen Question Answer Notes Are you a: nonsmoker Section Notes: ETOH & Tobacco Screening com pleted on 02/13/20 ETOH & Tobacco Screening com pleted on 03/10/20 ETOH & Tobacco Screening com pleted on 03/10/20 Problems Problem Type SNOMED Code ICD Code Onset Dates Problem Status W/U Status Risk Notes Problem COPD - Chronic obstructive pulmonary disease (57743244) COPD (chronic obstructive pulmonary disease) (J44.9) Active confirmed Problem Allergic rhinitis (24095246) Allergic rhinitis (J30.9) Active confirmed Problem Insomnia (760031693) Insomnia (G47.00) Active confirmed Problem Anxiety (71133139) Anxiety (F41.9) Active confirmed Problem Arthralgia of the pelvic region and thigh (526081926) Bilateral hip pain (M25.551) Active confirmed Problem Hemorrhoid (59939232) Hemorrhoid (K64.9) Active confirmed Problem Bursitis (53965537) Anserine bursitis (M71.50) Active confirmed Problem Essential hypertension (38729769) Essential hypertension (I10) Active confirmed Problem Obstructive sleep apnea (74795525) Obstructive sleep apnea (G47.33) Active confirmed Problem 853207147 History of pulmonary embolism (Z86.711) Active confirmed Problem 501508215 Recurrent UTI (N39.0) Active confirmed No sx today, but recently self tx. I explained to pt. and family that I'm not in favor of giving antibiotics for prn use. I prefer getting a UA dip each time, with the option to culture the urine. She agrees with this. I supplied her with supplies to obtain a urine clean catch sample for when the sx retunrn in the future. I also advise she call to discuss her sx with the RN, so that I have context to go with the urine sample. Problem Alopecia (31114948) Alopecia (L65.9) Active confirmed Problem 531526722 History of DVT (deep vein thrombosis) (Z86.718) Active confirmed RLE x 2. Also h/o PE. I explained to pt. that her risk of recurrent DVT is very low with her good compliance with life long anticoagulati on. Her swelling and intermittent leg pain is likely due to venous insuff. caused by damage from the previous clots. Advised use of knee high compression sock. Her DIL agrees to help with donning and doffing of this. Problem Unsteady gait (23382835) Unsteady gait (R26.81) Active confirmed Problem Hard of hearing (14245290) Hard of hearing (H91.90) Active confirmed Problem Mixed hyperlipidemia (729347535) Mixed hyperlipidemia (E78.2) Active confirmed Problem 390425087 History of colon polyps (Z86.010) Active confirmed I advised against ongoing routine colon cancer screening with colonscopy, given her advanced age and comorbidities . Discussed how the risk of colon perf goes up with age. Problem Irritable bowel syndrome with diarrhea (345070876) Irritable bowel syndrome with diarrhea (K58.0) Active confirmed Problem Mild recurrent major depression (41623275) Mild episode of recurrent major depressive disorder (F33.0) Active confirmed Problem Pulmonary hypertension (16516091) Mild pulmonary hypertension (I27.20) Active confirmed Plan Of Treatment No Information Insurance Providers Payer Name Payer Address Payer Phone Subscriber Number Group Number Insured Name Patient Relationship to Insured Coverage Start Date Coverage End Date [facility] PPO [address] [address] [place] [address] [id number] [employer] zaipen Self - patient is the insured MEDICARE A [address] [place] [id number] Dee Dee Self - patient is the insured Medical (General) History Medical History History ICD Code Bilateral Upper Blepharoplasty Ptosis-Ey e Exam 01/16/20 RLE DVT 2016 and 05/2018 High Cholesterol Arthritis in Back, Knees, Hips COPD Pulmonary Embolism 05/2018 Insomnia Alopecia Anserine Bursitis Anxiety Bilateral Hip Pain Depression [place] of Hearing Hyperlipidemia Hypertension Irritable Bowel Syndrome w/Diarrhea Post-Menopausal Unsteady Gait Hx of MARICEL Allergic Rhinitis Dyspnea on Exertion Mild Pumonary Hypertion-Echo 2016 Surgical History Surgery Date(Month/Year) Cholecystectomy Appendectomy
--- OUTSIDE RECORDS SUMMARY | 2024-04-20 14:40 | XMS_ITS | Encounter Summary ---
Author Organization [facility] Healthcare Address [address] [place] [address] Care Team Providers Care Customer Care Consultant Name Role Phone Omar Patel MD Primary Care Provider [phone] Reason for Visit * Diagnostic Imaging (Routine) - Closed Specialty Diagnoses / Procedures Referred By Martha zurita Referred To Contact Procedures Breast Imaging Screening Outside Reference Yamilka Fernandez NP Phone: tel: fax: Referral ID Status Reason Start Date Expiration Date Visits Re quested Visits Authorized [id number] Closed 03/01/2022 03/31/2023 1 1 Encounter Details Date Type Department Care Team (Late st Contact Info) Description 11/29/2016 Hospital Encounter [facility] [address] [place] [address] Social History Tobacco Use Types Packs/Day Years Used Date Smoking Tobacco: Never Smokeless Tobacco: Never Alcohol Use Standard Drinks/Week Comments No 0 (1 standard drink = 0.6 oz pur e alcohol) Comments No Sex and Gender Information Value Date Recorded Sex Assigned at Not on file Legal Sex Female 2:19 AM CUSTOMS AGENT Gender Identity Not on file Sexual Orientation Not on file documented as of this encounter Plan of Treatment Not on file documented as of this encounter Procedures Procedure Name Priority Date/Time Associated Diagnosis Comments BREAST IMAGING MG SCREENING OUTSIDE REFERENCE Routine 11/29/2016 12:00 AM CDT documented in this encounter Results * Breast Imaging Screening Outside Reference (11/29/2016 12:00 AM CDT) Impressions [facility] - 03/01/2022 10:35 AM CUSTOMS AGENT These images are for Reference purposes only and have not been reviewed by [facility]. There will be no report generated by a [facility]iologist. Narrative [facility] - 03/01/2022 10:35 AM CUSTOMS AGENT EXAMINATION: Images For Reference Purposes Only us Yamilka Fernandez RN CARDIOLOGY IMG MAMMO PROCEDURES Fin al Result [facility] documented in this encounter Visit Diagnoses Not on filedocumented in this encounter Care Teams Customer Care Consultant Relationship Specialty Start Date End Date Omar Patel MD PCP - General 07/12/16 11/29/16 documented as of this encounter
--- OUTSIDE RECORDS SUMMARY | 2024-04-20 14:40 | XMS_ITS | Clinical Summary ---
Author Organization [facility] Address [address] [place] [address] Care Team Providers Care Pharmacy Clinical Coordinator Name Role Phone Alexander Calhoun MD Primary Care Provider [phone] Allergies No known active allergies Medications acetaminophen 325 MG tablet Take 1 tablet (325 mg total) by mouth every 4 (four) hours as needed. Active onabotulinumtoxi nA (BOTOX) 100 units injectionIndicat ions:every 3 months Inject 100 Units into the muscle. Indications: every 3 months Active albuterol sulfate HFA (PROAIR HFA) 108 (90 Base) MCG/ACT inhalerIndicatio ns:Mild persistent asthma without complication (HHS/HCC) Inhale 2 puffs into the lungs every 4 (four) hours as needed for Wheezing (or cough). 1 g 3 06/18/19 22 Active calcium carb-cholecalcif janki (CALTRATE 600+D) 600-20 MG-MCG tablet Take 1 tablet by mouth daily. Active GEMTESA 75 MG tablet Take 1 tablet (75 mg total) by mouth daily. 09/17/19 23 Active vitamin D3 (CHOLECALCIFEROL ) 25 mcg tablet Take 1 tablet (25 mcg total) by mouth daily. Active loratadine (CLARITIN) 10 MG tabletIndication s:Allergic rhinitis, unspecified seasonality, unspecified trigger TAKE 1 TABLET (10 MG TOTAL) BY MOUTH DAILY. 90 tablet 3 06/11/19 24 Active Fluticasone-Umec lidin-Vilant (TRELEGY ELLIPTA) 200-62.5-25 MCG/ACT AEROSOL POWDER, BREATH ACTIVATEDIndicat ions:Pulmonary emphysema, unspecified emphysema type (CMS/HCC HHS/HCC) Take 1 puff by mouth daily. 180 each 3 06/22/19 24 Active ELIQUIS 5 MG tablet Take 1 tablet (5 mg total) by mouth 2 (two) times daily. 06/08/19 24 Active hydrocortisone 2.5 % creamIndications :Hemorrhoids, unspecified hemorrhoid type Apply topically 2 (two) times daily. 28 g 1 08/08/19 24 Active amLODIPine (NORVASC) 5 MG tabletIndication s:Essential hypertension Take 1 tablet (5 mg total) by mouth daily. 90 tablet 3 08/13/19 24 Active citalopram (CELEXA) 20 MG tabletIndication s:Mild episode of recurrent major depressive disorder (CMS/HCC) Take 1 tablet (20 mg total) by mouth daily. 90 tablet 3 08/13/19 24 Active ezetimibe (ZETIA) 10 MG tabletIndication s:Hypokalemia Take 1 tablet (10 mg total) by mouth daily. 90 tablet 3 08/13/19 24 Active hydroCHLOROthiaz heri (MICROZIDE) 12.5 MG capsuleIndicatio ns:Essential hypertension Take 1 capsule (12.5 mg total) by mouth daily. 90 capsule 3 08/13/19 24 Active montelukast (SINGULAIR) 10 MG tabletIndication s:Pulmonary emphysema, unspecified emphysema type (CMS/HCC HHS/HCC) Take 1 tablet (10 mg total) by mouth nightly at bedtime. 90 tablet 3 08/13/19 24 Active amitriptyline (ELAVIL) 10 MG tabletIndication s:Insomnia, unspecified type Take 1 tablet (10 mg total) by mouth nightly at bedtime. 30 tablet 10/09/19 24 Active potassium chloride CR (KLOR-CON M20) 20 MEQ tabletIndication s:Hypokalemia Take 1 tablet (20 mEq total) by mouth 2 (two) times daily. 180 tablet 02/04/20 24 Active ramelteon (ROZEREM) 8 MG tabletIndication s:Primary insomnia Take 1 tablet (8 mg total) by mouth nightly at bedtime. 30 tablet 3 11/25/20 24 Active bisoprolol (ZEBETA) 10 MG tabletIndication s:Essential hypertension TAKE 1 TABLET DAILY 90 tablet 04/04/19 25 Active bisoprolol (ZEBETA) 10 MG tabletIndication s:Essential hypertension Take 1 tablet (10 mg total) by mouth daily. 90 tablet 1 08/13/19 24 025 Discontinued Active Problems Problem Noted Date Diagnosed Date Pulmonary hypertension, unspecified ([facility]) 08/08/2023 Generalized muscle weakness 09/14/2021 Other primary thrombophilia (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) 07/15/2018 History of pulmonary embolism 07/15/2018 Non-seasonal allergic rhinitis due to pollen 08/2018 Sleep disorder 07/15/2018 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 ([facility]) 07/15/2018 Erythrocytosis 10/01/2017 Obesity due to excess calories 01/02/2017 Pulmonary embolism ([facility]) 07/09/2016 Bilateral hip pain 01/24/2016 Unsteady gait 01/24/2016 Abnormal urine finding 07/23/2015 Post-menopausal 01/14/2015 Anxiety 12/10/2014 Hard of hearing 02/17/2014 Basal cell carcinoma (BCC) of scalp 12/09/2013 Insomnia 09/24/2012 Depression 07/31/2012 Irritable bowel syndrome with diarrhea 3 Essential hypertension 06/05/2012 Hyperlipidemia 06/05/2012 Adenomatous polyp of colon 11/24/2011 Overview (05/22/2018): Overview: 12/2014: diminutive adenoma. Defer follow up screening colonoscopy on basis of age? 12/2011: Small adenoma. 07/2007: Small cecal adenoma, mild tic IH. 2002: IH, mild-mod tics. 1997: neg. Resolved Problems Problem Noted Date Diagnosed Date Resolved Date Mass of right breast 02/22/2022 023 Shortness of breath 01/02/2017 02/06/20 23 Right hand pain 03/21/2016 02/05/2023 Dysuria 03/16/2016 02/05/2023 Screening for endocrine disorder 01/24/2016 11/21/2019 Right leg pain 04/23/2015 02/05/2023 Right calf pain 04/15/2015 02/05/2023 Right knee pain 01/14/2015 02/05/2023 Family history of colon cancer 11/24/2011 02/05/2023 Overview (05/22/2018): Overview: Mom @ 79 Diarrhea 11/24/2011 02/05/2023 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 02/05/2023 Encounters Date Type Department Care Team Description 03/17/2024 Scan [facility] Scanned, Doc Med Group 02/13/2024 Scan [facility] Scanned, Doc Med Group Vascular Lab Study (SCAN) 02/04/2024 1:20 PM LARD REFINER Office Visit [facility] Medical Group Family & Internal Medicine [address] [address] Alexander Calhoun MD Follow Up; Hypertension; Hyperlipidemia; Anxiety; Depression; Insomnia NOS; COPD; Shingles (Patient reports just getting over a case of shingles on left eyelid after receiving some Botox injections. ) 02/04/2024 Travel from Last 3 Months Immunizations Name Administration Dates Next Due Arexvy Respiratory Syncytial Virus (RSV, adjuvanted) 0.5 mL, PF 03/08/2023 Fluzone High Dose - >Age 65 (Prefilled Syringe) 11/14/2019,12/22/2018 Influenza Adult (Generic) 12/22/2018,07/2017,11/27/2015,2014,11/18/2013 MODERNA COVID-19 (12+) MRNA, LNP-S, PF, 100 MCG/ 0.5 ML DOSE 01/15/2021,05/15/2020,04/16/2020 Pneumococcal (Pneumovax 23) 01/14/2015 Zoster (Zostavax) 06766 Unt/0.65Ml 01/08/2015 Family History Medical History Relation Comments Heart Disease Father Ovarian Cancer Mother Cancer Son esophageal cance r Relation Status Comments Father Mother Son Social History Tobacco Use Types Packs/Day Years Used Date Smoking Tobacco: Never Smokeless Tobacco: Never Tobacco Cessation:Counseling Given: Not Answered Comments:Non smoker Alcohol Use Standard Drinks/Week Comments Yes 0 (1 standard drink = 0.6 oz pur e alcohol) couple of drinks per year AUDIT-C Answer Date Recorded Frequency of Alcohol Consumption Never 05/22/2018 Average Number of Drinks Not on file 019 Frequency of Binge Drinking Not on file 05/10 PHQ-2 Answer Date Recorded Patient Health Questionnaire-2 Score 2 08/08/2023 Comments No Sex and Gender Information Value Date Recorded Sex Assigned at Not on file Legal Sex Female 4:58 PM CDT Gender Identity Not on file Sexual Orientation Not on file Last Filed Vital Signs Vital Sign Reading Time Taken Comments Blood Pressure 130/60 02/04/2024 1:40 PM LARD REFINER Pulse 84 02/04/2024 1:40 PM LARD REFINER Temperature 36.8 C (98.2 F) 02/04/2024 1:40 PM LARD REFINER Respiratory Rate 18 02/04/2024 1:40 PM LARD REFINER Oxygen Saturation 94% 02/04/2024 1:40 PM LARD REFINER Inhaled Oxygen Concentration - - Weight 87.1 kg (192 lb) 02/04/2024 1:40 PM LARD REFINER Height 162.6 cm (5' 4 ) 02/04/2024 1:40 PM LARD REFINER Body Mass Index 32.96 02/04/2024 1:40 PM LARD REFINER Plan of Treatment Upcoming Encounters Date Type Department Care Team (Late st Contact Info) Description 05/07/2024 12:00 PM LARD REFINER Office Visit [facility] Medical Group Family & Internal Medicine - [place] [id number] [place] [address] [address] [facility] [place] [address] Health Maintenance Due Date Last Done Comments DTaP, Tdap and Td Vaccines (1 - Tdap) 12/28/1954 Annual Medicare Wellness Visit 2001 Zoster Vaccines (2 of 3) 03/05/2015 01/08/2015 Pneumococcal Vaccine: 65+ Years (2 of 2 - PCV) 01/15/2016 01/14/2015 PHQ-2 (Physician [place]) 03/12/2024 08/08/2023 PHQ-2 (Physician [place]) 08/07/2024 08/08/2023 Influenza Adult (#1) 2024 11/14/2019, 12/22/2018, 12/22/2018, Additional history exists Postponed from 12/11/2023 (Going to Outside Clinic) COVID-19 Vaccine ( season) 2025 09/04/2022, 12/23/2021, 07/27/2021, Additional history exists Postponed from 11/11/2023 (Going to Outside Clinic) RSV Immunization or 60+ Years Completed 03/08/2023 Meningococcal B Vaccine Aged Out No l onger eligible based on patient's age to complete this topic Meningococcal Vaccine Aged Out No dieter monica eligible based on patient's age to complete this topic RSV Immunizations Under 20 Months Aged Out No longer eligible based on patient's age to complete this topic Procedures Procedure Name Priority Date/Time Associated Diagnosis Comments VASCULAR LAB GENERIC (SCAN ORDER) 02/13/2024 from Last 3 Months Results * VASCULAR LAB GENERIC (SCAN ORDER) (02/13/2024) 02/13/2024 us Doc Med Group Scanned SCANNING Final Resu lt from Last 3 Months Insurance [employer] Care Teams Pharmacy Clinical Coordinator Relationship Specialty Start Date End Date Alexander Calhoun MD [address] [place] [id number] PCP - General INTERNAL MEDICINE 04/22/18
--- OUTSIDE RECORDS SUMMARY | 2024-04-20 14:40 | XMS_ITS | Encounter Summary ---
Author Organization [facility] Address [address] [place] [address] Care Team Providers Care Corporate Receptionist Name Role Phone Alexander Calhoun MD Primary Care Provider [phone] Encounter Details Date Type Department Care Team (Late st Contact Info) Description 07/05/2000 Outpatient Historical [facility] & Kg Apodaca MD Social History Tobacco Use Types Packs/Day Years Used Date Smoking Tobacco: Never Assessed Comments Unknown Sex and Gender Information Value Date Recorded Sex Assigned at Not on file Legal Sex Female 4:11 AM ROUND KILN DRAWER Gender Identity Not on file Sexual Orientation Not on file documented as of this encounter Plan of Treatment Upcoming Encounters Date Type Department Care Team (Late st Contact Info) Description 05/19/2024 1:00 PM CDT Office Visit [facility] and H[facility]ology - Charanjit [address] [facility] [address] [place] [address] Mansoor Conde MD [address] [facility] [address] [place] [address] documented as of this encounter Visit Diagnoses Not on filedocumented in this encounter Care Teams Corporate Receptionist Relationship Specialty Start Date End Date Alexander Calhoun MD [address] [place] [phone] PCP - General Internal Medicine 05/29/18 documented as of this encounter
--- OUTSIDE RECORDS SUMMARY | 2024-04-20 14:40 | XMS_ITS | Patient Health Summary ---
Author Organization [facility] [employer] Address [address] [place] [address] Care Team Providers Care Circular Clerk Name Role Phone Alexander Calhoun MD Primary Care Provider [phone] Note from [facility],non-owned Affiliates and Associated Physician Practices is amultiple site organization consisting of ambulatory clinics and hospital sitesin [place], [place], [place] and [place]. This disclosure is being madepursuant to the Care Everywhere program and may not contain all information available regarding this patient. Last updated 17.[facility] [employer] Allergies No known active allergies Medications * Be aware that medications may not be up to date on this document. Alwaysverify current medications with the patient. * amLODIPine (NORVASC) 5 MG tablet Take 5 mg by mouth * calcium carbonate - vitamin D (CALTRATE + D) 600-800 MG-UNIT tablet Take 1 tablet by mouth * citalopram (CELEXA) 10 MG tablet Take 10 mg by mouth * hydroCHLOROthiazide (MICROZIDE) 12.5 MG capsule(Started 07/22/2017) * MYRBETRIQ 50 MG tablet(Started 02/09/2018) Take 1 tablet by mouth once daily * ezetimibe (ZETIA) 10 MG tablet Take 10 mg by mouth once daily * potassium chloride ER (KLOR-CON) 20 MEQ tablet(Started 02/09/2018) Take 1 tablet by mouth once daily * bisoprolol (ZEBETA) 10 MG tablet(Started 02/11/2018) Take 1 tablet by mouth once daily * cholestyramine light (QUESTRAN LIGHT/PREVALITE) 4 G packet(Started 02/09/2018) Take 4 g by mouth once daily * TRELEGY ELLIPTA 100-62.5-25 MCG/INH(Started 09/16/2018) * rivaroxaban (XARELTO) 15 MG tablet Take 15 mg by mouth once daily * propylene glycol (SYSTANE BALANCE) 0.6 % opthalmic solution Instill 1 drop into both eyes as needed for Dry Eyes * XARELTO 10 MG tablet(Started 12/02/2018) Active Problems Problem Noted Date Diagnosed Date 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 Immunizations * INFLUENZA VACCINE(Given 12/14/2017) Social History Tobacco Use Types Packs/Day Years Used Date Smoking Tobacco: Never Smokeless Tobacco: Never Alcohol Use Standard Drinks/Week Comments Yes 0 (1 standard drink = 0.6 oz pur e alcohol) Sex and Gender Information Value Date Recorded Sex Assigned at Not on file Gender Identity Not on file Sexual Orientation Not on file Procedures * DERMATOPATHOLOGY(Performed 04/04/2023) Performed for Neoplasm of uncertain behavior of skin * EYE EXAM(Performed 02/11/2019) * ME DESTROY NERVE FACE MUSCLE, UNILAT(Performed 12/26/2018) Performed for Blepharospasm * ME DESTROY NERVE FACE MUSCLE, UNILAT(Performed 09/27/2018) Performed for Blepharospasm * ME DESTROY NERVE FACE MUSCLE, UNILAT(Performed 05/16/2018) Performed for Blepharospasm * PROC OPH BOTOX PROCEDURE - FACIAL MUSCLE(Performed 05/16/2018) Performed for Blepharospasm * SLU BOTOX PRECERT(Performed 02/13/2018) Performed for Blepharospasm * ME DESTROY NERVE FACE MUSCLE, UNILAT(Performed 02/13/2018) Performed for Blepharospasm * PROC OPH MISC PROCEDURE(Performed 02/13/2018) Performed for Blepharospasm * ME DESTROY NERVE FACE MUSCLE, UNILAT(Performed 11/13/2017) Performed for Blepharospasm * ME DESTROY NERVE FACE MUSCLE, UNILAT(Performed 07/26/2017) Performed for Blepharospasm * DERMATOPATHOLOGY(Performed 11/12/2013) Results * DERMATOPATHOLOGY (04/04/2023 3:33 AM FRONT DESK RECEPTIONIST) Only the most recent of2 resultswithin the time period is included. Case Report Dermatopathology Report Case: [id number] Authorizing Provider: Christiano Gan MD Collected: 04/04/2023 03:33 AM Ordering Location: [facility] DermPath Lab Received: 04/06/2023 07:39 AM Pathologist: Yesika Lopez MD Specimen: Skin, frontal scalp 3:28 PM [facility] Final Diagnosis Specimen A. 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 The specimen consists of a shave biopsy measuring 12x7x6 mm. Jar 0. 3:28 PM [facility] Microscopic Description Specimen A. SKIN, frontal scalp: The epidermis shows parakeratosis, full thickness disorderly maturation of keratinocytes, mitoses at different levels, and dyskeratotic cells. There is a column of marked compact hyperkeratosis. 3:28 PM [facility] Disclaimer An external and internal positive and negative controls are appropriate for the histochemical, immunohistochemical and immunofluorescence stain(s) in this case (if any), except where stated explicitly. The performance characteristics of the stain(s) cited in this report were developed and its performance characteristic determined by the Dermatopathology Laboratory at [facility], directed by Dr. Karin Xiong. These tests need not be, and therefore are not, approved by the [place] Food and Drug Administration. The tests are used for clinical purposes. Billing Codes Specimen Charges Stain Charges 56670 1 4 3:28 PM [facility] Embedded Images 3:28 PM [facility] Pathology/Cytolo gy TISSUE SPECIMEN FROM SKIN / Unknown 04/04/2023 3:33 AM FRONT DESK RECEPTIONIST 04/06/2023 7:39 AM FRONT DESK RECEPTIONIST Christiano Gan MD LAB - PATHOLOGY/CYTO LOGY ORDERABLES DERMATOPATHOLOGY LABORATORY [facility] - Department of Dermatology [address], [address] Floor [place] [id number] [place] [address] * EYE EXAM (02/11/2019 9:08 AM FRONT DESK RECEPTIONIST) Anatomical Region Laterality Modality Other Narrative 02/11/2019 9:08 AM FRONT DESK RECEPTIONIST Ordered by an unspecified provider. Scanned Document SCANNING ONLY * ME DESTROY NERVE FACE MUSCLE, UNILAT (12/26/2018 4:19 PM CDT) Narrative Chasity Abrams - 12/26/2018 4:19 PM CDT Chasity Abrams 12/26/2018 7:59 PM Kelsey Waddell MD PROCEDURE/MINOR SURG ICAL ORDERABLES * ME DESTROY NERVE FACE MUSCLE, UNILAT (09/27/2018 10:13 AM CDT) Narrative Kanchan Rene - 09/27/2018 10:13 AM CDT Kanchan Rene 09/27/2018 10:13 AM Kelsey Waddell MD PROCEDURE/MINOR SURG ICAL ORDERABLES * ME DESTROY NERVE FACE MUSCLE, UNILAT (05/16/2018 12:19 AM FRONT DESK RECEPTIONIST) Narrative Dimple Hanks MD - 05/16/2018 12:19 AM FRONT DESK RECEPTIONIST Dimple Hanks MD 05/16/2018 12:09 AM Botox Operative Note Date of Procedure: 05/15/2018 Patient here for f/u Benign Essential Blepharospasm. Dee Dee Sánchez is a 82 y.o. female here for Botox injections for follow-up BEB. Her last visit was 02/13/18 and she received 62 units. Pt reports that her spasms came back in the middle of April. States that the last dose helped however OS was watering for about a week after the injections. Denies any pain, dryness or changes in vision. Pt is by herself. Last visit: 02/13/18 Units: 62 Va Visual Acuity (Snellen - Linear) Right Left Dist sc 20/50 -1 20/40 -2 Betacaine applied: yes Product Used: Botox Impression: Benign Essential Blepharospasm Surgeon: Dimple Hanks M.D. Procedure: Botulinum toxin injection for chemical neurolysis, facial muscles After informed consent was obtained, a total of 62 units of toxin was then administered subcutaneously via a 30-gauge needle to the orbicularis muscles surrounding the both eye (s). At the conclusion, pressure was applied briefly with a gauze dressing. The patient was then given postoperative instructions and released. Amount wasted: 4 F/U 3 mo Radha Perez MD 05/15/2018 2:30 PM [X] Patient seen and examined. Resident note reviewed and discussed. I confirm these findings other than where revisions were made. Botox procedure performed by attending Dimple Hanks MD Radha Perez MD PROCEDURE/MINOR SURGICAL ORDERABLES * SLU OPH BOTOX PRECERT (02/13/2018 9:23 PM FRONT DESK RECEPTIONIST) Dimple Walden MD - 02/13/2018 9:23 PM FRONT DESK RECEPTIONIST Dimple Hanks MD 02/13/2018 9:23 PM Precert order. Delores Blanco MD PROCEDURE/MINOR SURG ICAL ORDERABLES * ME DESTROY NERVE FACE MUSCLE, UNILAT (02/13/2018 9:22 PM FRONT DESK RECEPTIONIST) Dimple Walden MD - 02/13/2018 9:22 PM FRONT DESK RECEPTIONIST Dimple Hanks MD 02/13/2018 9:22 PM Botox Operative Note Date of Procedure: 02/13/2018 Patient here for f/u Benign Essential Blepharospasm. Dee Dee Sánchez is a 82 y.o. female here for Botox injections for follow-up BEB. Her last visit was 11/13/17 and she received [address] Waddell for Botox however is seeing Dr Hanks due to Dr Waddell being on sabbatical. Pt reports that her spasms returned a couple weeks ago. States that she went longer this time in between injections due to her spasms not returning as soon. States that the last dose of Botox really helped. Denies pain. States that her eyes don't feel dry or irritated however itchy sometimes. States that vision is stable.Pt is by herself during this visit. Last visit: 11/13/17 Units: 62 Va Visual Acuity (Snellen - Linear) Right Left Dist sc 20/80 +1 20/40 -2 Betacaine applied: no Product Used: Botox Impression: Benign Essential Blepharospasm Surgeon: Karin SuarezD. Procedure: Botulinum toxin injection for chemical neurolysis, facial muscles After informed consent was obtained, a total of 62 units of toxin was then administered subcutaneously via a 30-gauge needle to the orbicularis muscles surrounding the bilateral eye (s). At the conclusion, pressure was applied briefly with a gauze dressing. The patient was then given postoperative instructions and released. Amount wasted: 17 F/U 3 mo Delores Blanco MD 02/13/2018 3:59 PM [X] Patient seen and examined. Resident note reviewed and discussed. I confirm these findings other than where revisions were made. Botox procedure performed by attending Dimple Hanks MD 02/13/2018 2 Delores Blanco MD PROCEDURE/MINOR SURG ICAL ORDERABLES * ME DESTROY NERVE FACE MUSCLE, UNILAT (11/13/2017 5:03 PM CDT) Narrative Kelsey Waddell MD - 11/13/2017 5:03 PM CDT Kelsey Waddell MD 11/13/2017 5:03 PM (No note.) Kelsey Waddell MD PROCEDURE/MINOR SURG ICAL ORDERABLES * ME DESTROY NERVE FACE MUSCLE, UNILAT (07/26/2017 8:16 PM CDT) Narrative Kelsey Waddell MD - 07/26/2017 8:16 PM CDT Kelsey Waddell MD 07/26/2017 8:16 PM (No note.) Kelsey Waddell MD PROCEDURE/MINOR SURG ICAL ORDERABLES Care Teams Circular Clerk Relationship Specialty Start Date End Date Alexander Calhoun MD PCP - General 05/15/18
--- OUTSIDE RECORDS SUMMARY | 2024-04-20 14:40 | XMS_ITS | Encounter Summary ---
Author Organization [facility] [employer] Address [address] [place] [address] Care Team Providers Care Junior Accountant Bookkeeper Name Role Phone Omar Patel MD Primary Care Provider [phone] Bhargav Fritz MD Primary Care Provider Alexander Calhoun MD Primary Care Provider [phone] Encounter Details Date Type Department Care Team (Late st Contact Info) Description 06/27/2016 Orders Only [facility] ProviderMelany MD [address] [place] [address] Social History Tobacco Use Types Packs/Day Years Used Date Smoking Tobacco: Never Assessed Comments Unknown Sex and Gender Information Value Date Recorded Sex Assigned at Not on file Legal Sex Female 2:19 AM ELECTRIC WELDER Gender Identity Not on file Sexual Orientation Not on file documented as of this encounter Plan of Treatment Not on file documented as of this encounter Procedures Procedure Name Priority Date/Time Associated Diagnosis Comments CARDIOLOGY REPORT 06/27/2016 documented in this encounter Results * CARDIOLOGY REPORT (06/27/2016) Anatomical Region Laterality Modality Other Narrative 06/27/2016 Ordered by an unspecified provider. Historical Provider [facility] ARIEL REYES Final Result documented in this encounter Visit Diagnoses Not on filedocumented in this encounter Care Teams Junior Accountant Bookkeeper Relationship Specialty Start Date End Date Omar Patel MD PCP - General 07/12/16 11/29/16 Bhargav Fritz MD [address] [facility] [address] [place] [address] PCP - General Family Medicine 11/30/16 07/14/18 Alexander Calhoun MD [address] [place] [address] PCP - General Internal Medicine 07/15/18 documented as of this encounter
--- OUTSIDE RECORDS SUMMARY | 2024-04-20 14:40 | XMS_ITS | Encounter Summary ---
Author Organization [facility] Address [address] [place] [address] Care Team Providers Care Ton Container Shipper Name Role Phone Alexander Calhoun MD Primary Care Provider [phone] Encounter Details Date Type Department Care Team (Late st Contact Info) Description 10/13/1999 Outpatient Historical [facility] Catracho Ball MD [address] [facility] [address] [place] [address] Social History Tobacco Use Types Packs/Day Years Used Date Smoking Tobacco: Never Assessed Comments Unknown Sex and Gender Information Value Date Recorded Sex Assigned at Not on file Legal Sex Female 4:11 AM CABLE LACER Gender Identity Not on file Sexual Orientation Not on file documented as of this encounter Plan of Treatment Upcoming Encounters Date Type Department Care Team (Late st Contact Info) Description 05/19/2024 1:00 PM CDT Office Visit [facility] Oncology and Hematology - Charanjit [address] [facility] [address] [place] [address] Mansoor Conde MD [address] [facility] [address] [place] [address] documented as of this encounter Visit Diagnoses Not on filedocumented in this encounter Care Teams Ton Container Shipper Relationship Specialty Start Date End Date Alexander Calhoun MD [address] [place] [id number] PCP - General Internal Medicine 05/29/18 documented as of this encounter
--- OUTSIDE RECORDS SUMMARY | 2024-04-20 14:40 | XMS_ITS | Encounter Summary ---
Author Organization [facility] Address [address] [place] [address] Care Team Providers Care Associate Curator Name Role Phone Alexander Calhoun MD Primary Care Provider [phone] Encounter Details Date Type Department Care Team (Late st Contact Info) Description 01/13/1999 Outpatient Historical [facility] Catracho Ball MD [address] [facility] [address] [place] [address] Social History Tobacco Use Types Packs/Day Years Used Date Smoking Tobacco: Never Assessed Comments Unknown Sex and Gender Information Value Date Recorded Sex Assigned at Not on file Legal Sex Female 4:11 AM RESIDENTIAL DOOR INSTALLER Gender Identity Not on file Sexual Orientation Not on file documented as of this encounter Plan of Treatment Upcoming Encounters Date Type Department Care Team (Late st Contact Info) Description 05/19/2024 1:00 PM CDT Office Visit [facility] Oncology and Hematology - Charanjit [address] [facility] [address] [place] [address] Mansoor Conde MD [address] [facility] [address] [place] [address] documented as of this encounter Visit Diagnoses Not on filedocumented in this encounter Care Teams Associate Curator Relationship Specialty Start Date End Date Alexander Calhoun MD [address] [place] [phone] PCP - General Internal Medicine 05/29/18 documented as of this encounter
--- OUTSIDE RECORDS SUMMARY | 2024-04-20 14:40 | XMS_ITS | Encounter Summary ---
Author Organization [facility] Address [address] [place] [address] Care Team Providers Care Shower Enclosure Installer Name Role Phone Alexander Calhoun MD Primary Care Provider [phone] Encounter Details Date Type Department Care Team (Latest Contact Info) Description 02/24/2022 [employer] Message Enc [facility] Family & Internal Medicine [place] [address] [place] [address] Alexander Calhoun MD [address] [place] [address] Waldrop Social History Tobacco Use Types Packs/Day Years Used Date Smoking Tobacco: Never Smokeless Tobacco: Never Alcohol Use Standard Drinks/Week Comments No 0 (1 standard drink = 0.6 oz pur e alcohol) AUDIT-C Answer Date Recorded Frequency of Alcohol Consumption Never 05/22/2018 Average Number of Drinks Not on file 019 Frequency of Binge Drinking Not on file 05/10 PHQ-2 Answer Date Recorded PHQ-2 Score - If the patient scores above 3, please move on to questions 3-9 2 11/25/2021 Comments No Sex and Gender Information Value Date Recorded Sex Assigned at Not on file Legal Sex Female 4:58 PM CDT Gender Identity Not on file Sexual Orientation Not on file documented as of this encounter Progress Notes * Julianna Humphrey MA - 02/27/2022 8:35 AM CSTFrom: Dee Dee Sánchez To: Dr. Alexander Calhoun Sent: 02/24/2022 3:30 PM UKE DRIVER Subject: Referral to Dr. Benjie Waldrop has not received the referral for the biopsy. Please fax the referral and all records to Dr. Waldrop at [phone]. Thank you. DRIVER documented in this encounter Plan of Treatment Upcoming Encounters Date Type Department Care Team (Late st Contact Info) Description 05/07/2024 12:00 PM UKE DRIVER Office Visit [facility] Family & Internal Medicine - [address] [address] Alexander Calhoun MD [address] [place] [address] documented as of this encounter Visit Diagnoses Not on filedocumented in this encounter Additional Health Concerns Assessment Noted Time PHQ-9 Depression Total Score: 1 05/02/19 22 11:35 AM UKE DRIVER documented as of this encounter Care Teams Shower Enclosure Installer Relationship Specialty Start Date End Date Alexander Calhoun MD [address] [place] [address] PCP - General INTERNAL MEDICINE 04/22/18 documented as of this encounter
--- OUTSIDE RECORDS SUMMARY | 2024-04-20 14:40 | XMS_ITS | Encounter Summary ---
Author Organization [facility] Address [address] [place] [address] Care Team Providers Care Bladder Trimmer Name Role Phone Alexander Calhoun MD Primary Care Provider [phone] Encounter Details Date Type Department Care Team (Late st Contact Info) Description 01/12/2000 Outpatient Historical [facility] Catracho Ball MD [address] [facility] [address] [place] [address] Social History Tobacco Use Types Packs/Day Years Used Date Smoking Tobacco: Never Assessed Comments Unknown Sex and Gender Information Value Date Recorded Sex Assigned at Not on file Legal Sex Female 4:11 AM SCHOOL SERVICES OFFICER Gender Identity Not on file Sexual Orientation Not on file documented as of this encounter Plan of Treatment Upcoming Encounters Date Type Department Care Team (Late st Contact Info) Description 05/19/2024 1:00 PM CDT Office Visit [facility] Oncology and Hematology - Charanjit [address] [facility] [address] [place] [address] Mansoor Conde MD [address] [facility] [address] [place] [address] documented as of this encounter Visit Diagnoses Not on filedocumented in this encounter Care Teams Bladder Trimmer Relationship Specialty Start Date End Date Alexander Calhoun MD [address] [place] [phone] PCP - General Internal Medicine 05/29/18 documented as of this encounter
--- OUTSIDE RECORDS SUMMARY | 2024-04-20 14:40 | XMS_ITS | Encounter Summary ---
Author Organization [facility] Address [address] [place] [address] Care Team Providers Care Ham Pumper Name Role Phone Alexander Calhoun MD Primary Care Provider [phone] Encounter Details Date Type Department Care Team (Late st Contact Info) Description 04/22/1999 Outpatient Historical [facility] Catracho Ball MD [address] [facility] [address] [place] [address] Social History Tobacco Use Types Packs/Day Years Used Date Smoking Tobacco: Never Assessed Comments Unknown Sex and Gender Information Value Date Recorded Sex Assigned at Not on file Legal Sex Female 4:11 AM SLATER APPRENTICE Gender Identity Not on file Sexual Orientation Not on file documented as of this encounter Plan of Treatment Upcoming Encounters Date Type Department Care Team (Late st Contact Info) Description 05/19/2024 1:00 PM CDT Office Visit [facility] Oncology and Hematology - Charanjit [address] [facility] [address] [place] [address] Mansoor Conde MD [address] [facility] [address] [place] [address] documented as of this encounter Visit Diagnoses Not on filedocumented in this encounter Care Teams Ham Pumper Relationship Specialty Start Date End Date Alexander Calhoun MD [address] [place] [phone] PCP - General Internal Medicine 05/29/18 documented as of this encounter
--- OUTSIDE RECORDS SUMMARY | 2024-04-20 14:40 | XMS_ITS | Encounter Summary ---
Author Organization [facility] Address [address] [place] [address] Care Team Providers Care Cardiac Catheterization Technologist Name Role Phone Alexander Cahloun MD Primary Care Provider [phone] Encounter Details Date Type Department Care Team (Late st Contact Info) Description 10/13/1998 Outpatient Historical [facility] Catracho Ball MD [address] [facility] [address] [place] [address] Social History Tobacco Use Types Packs/Day Years Used Date Smoking Tobacco: Never Assessed Comments Unknown Sex and Gender Information Value Date Recorded Sex Assigned at Not on file Legal Sex Female 4:11 AM ELECTRICIAN THIRD Gender Identity Not on file Sexual Orientation Not on file documented as of this encounter Plan of Treatment Upcoming Encounters Date Type Department Care Team (Late st Contact Info) Description 05/19/2024 1:00 PM CDT Office Visit [facility] Oncology and Hematology - Charanjit [address] [facility] [address] [place] [address] Mansoor Conde MD [address] [facility] [address] [place] [address] documented as of this encounter Visit Diagnoses Not on filedocumented in this encounter Care Teams Cardiac Catheterization Technologist Relationship Specialty Start Date End Date Alexander Calhoun MD [address] [place] [phone] PCP - General Internal Medicine 05/29/18 documented as of this encounter
--- OUTSIDE RECORDS SUMMARY | 2024-04-20 14:40 | XMS_ITS | Clinical Summary ---
Author [place] [facility] [place] [address] Address [address] [place] [address] Care Team Providers Care Application Development Liaison Name Role Phone Alexander Calhoun MD Primary Care Provider [phone] Allergies Active Allergy Reactions Criticality Noted Date [...] 11/24/2011 Overview (07/12/2018): Overview: Mom @ 79 Encounters Date Type Department Care Team Description 03/14/2024 1:30 PM WAREHOUSE TRAINER - 03/14/2024 11:59 PM WAREHOUSE TRAINER Hospital Encounter [facility] - Breast [facility] [address] [place] [address] Abnormal mammogram; Mass of right breast, unspecified quadrant Discharge Disposition: Discharge to home or self care from Last 3 Months Immunizations Name Administration Dates Next Due Influenza, Unspecified 12/14/2017 Surgical History Surgery Date Site/Laterality Comments CHOLECYSTECTOMY APPENDECTOMY BREAST BIOPSY 05/11/2022 Right Medical History Medical History Date Comments Hypertension Hyperlipidemia Cataract COPD (chronic obstructive pulmonary disease) (HC C) Family History Medical History Relation Name Comments Heart disease Father Heart failure Father Colon cancer Mother Hypertension Mother Ovarian cancer Mother Relation Name Status Comments Father (Age 82) Mother (Age 79) Social History Tobacco Use Types Packs/Day Years Used Date Smoking Tobacco: Never Smokeless Tobacco: Never Tobacco Cessation:Counseling Given: Not Answered Alcohol Use Standard Drinks/Week Comments No 0 (1 standard drink = 0.6 oz pur e alcohol) Comments No Sex and Gender Information Value Date Recorded Sex Assigned at Not on file Legal Sex Female 2:19 AM WAREHOUSE TRAINER Gender Identity Not on file Sexual Orientation Not on file Obstetrics History Last Filed Vital Signs Vital Sign Reading [...] 08/08/2023 1:48 PM CDT Plan of Treatment Health Maintenance Due Date Last Done Comments Depression Screening 1936 Fall Risk Assessment 1935 DTaP/Tdap/Td Vaccine (1 - Tdap) 12/28/1947 Hepatitis B Screening 1953 Well Visit 65+ 2001 Zoster Vaccine (2 of 3) 03/05/2015 01/08/2015 Pneumococcal vaccine 65+ (2 of 2 - PCV) 01/15/2016 01/14/2015 Covid-19 Vaccine (2023-2 5 season) 2023 12/23/2021, 07/27/2021, 01/15/2021, Additional history exists Influenza Vaccine (#1) 2023 , 12/22/2018, 12/10/2018, Additional history exists Medical Devices Implanted Type Area Valet Cashier Device Identifier Shelf Expiration Date Model / Serial / Lot Bard Peripheral Vascular Ultraclip Bard 17ga 10cm 2 Trigger Permanent Ultrasound [id number] - [id number] Implanted:Qty: 1 on 05/11/2022 at [facility] [employer] [id number] / / Procedures Procedure Name Priority Date/Time Associated Diagnosis Comments DIAGNOSTIC MAMMOGRAM BILATERAL W JEREMY Schedule Routine, Read Routine (OP Routine) 03/14/2024 3:04 PM WAREHOUSE TRAINER Abnormal mammogram Mass of right breast, unspecified quadrant from Last 3 Months Results * Diagnostic Mammogram Bilateral W Jeremy (03/14/2024 3:04 PM WAREHOUSE TRAINER) Anatomical Region Laterality Modality Breast Bilateral Mammography 03/14/2024 3:09 PM WAREHOUSE TRAINER Impressions 03/14/2024 3:09 PM WAREHOUSE TRAINER 1. Left breast calcifications are benign. 2. No evidence of malignancy in either breast. OVERALL FINAL ASSESSMENT: BI-RADS Category 2: Benign. RECOMMENDATION: Continued clinical follow-up is recommended. Dr. Gutierrez discussed the above findings and recommendations with the patient. Electronically signed by: Lula Gutierrez M.D. Narrative 03/14/2024 3:09 PM WAREHOUSE TRAINER EXAMINATION: BILATERAL DIGITAL DIAGNOSTIC MAMMOGRAM INCLUDING CAD [...] signed by: Lula Gutierrez M.D. Lexie Andrew IMG MAMMO PROCEDURES Final Result from Last 3 Months Insurance MED[employer]ARE [employer] AET MEDICARE T MEDICARE AET MEDICARE Care Teams Application Development Liaison Relationship Specialty Start Date End Date Alexander Calhoun MD [address] [place] [address] PCP - General Internal Medicine 07/15/18
--- OUTSIDE RECORDS SUMMARY | 2024-04-20 14:40 | XMS_ITS | Clinical Summary ---
Author Organization [facility] Address [address] [place] [address] Phone Care Team Providers Care Water Softener Servicer And Installer Name Role Phone Alexander Calhoun MD Primary Care Provider [phone] Allergies No known active allergies Medications ezetimibe (ZETIA) 10 mg Oral tablet Take 10 mg by mouth daily. Active potassium chloride SR (KLOR-CON M20) 20 mEq Oral tablet Take 20 mEq by mouth daily. Active bisoprolol (ZEBETA) 10 mg Oral tablet Take 10 mg by mouth daily. Active hydrochlorothi azide (MICROZIDE) 12.5 mg Oral capsule Take 12.5 mg by mouth daily. Active amLODIPine (NORVASC) 5 mg Oral tablet Take 5 mg by mouth daily. Active clostridium botulinum A toxin (BOTOX) 100 unit Injection SolR Inject 100 Units by intramuscular injection one time only Takes every 3 months for eyes. Active citalopram (CeleXA) 20 mg tablet Take 20 mg by mouth daily at bedtime. Active acetaminophen (TYLENOL) 325 mg tablet Take 325 mg by mouth every 4 hours as needed for Pain, Mild / Temperature. Active folic acid (FOLVITE) 1 mg tablet Take 1 mg by mouth daily. Active ergocalciferol , vitamin D2, (VITAMIN D ORAL) Take by mouth. Activ e B-complex with vitamin C (VITAMIN B COMPLEX-C ORAL) Take by mouth. Activ e propylene glycol 0.6 % Drops 1 Drop by Ophthalmic route. Active fluticasone-um eclidinium-mona anterol (Trelegy Ellipta) 100-62.5-25 mcg Disk with Device 9 Active calcium carbonate-curtis min D3 (CALTRATE 600 + D) 600 mg(1,500mg) -800 unit Tablet Take 2,000 Tablets by mouth. Active hyoscyamine 0.125 mg Tablet, Sublingual DISSOLVE 1 TAB UNDER THE TONGUE up TO EVERY 4 HOURS NEEDED FOR CRAMPS 1 Active hydrocortisone (HYTONE) 2.5 % Ointment 0 Active albuterol sulfate 90 mcg/Actuation inhaler Take 2 Puffs by inhalation every 4 hours as needed. 2 Active Aliskiren-Hydr ochlorothiazid e 150-12.5 mg Tablet Take by mouth. Activ e vibegron (GEMTESA ORAL) Take by mouth. Active methylPREDNISo lone (MEDROL DOSPACK) 4 mg Tablets, Dose Pack Use as directed 21 Tablet 3 Active apixaban (ELIQUIS) 5 mg tabletIndicati ons:Acute deep vein thrombosis (DVT) of femoral vein of right lower extremity (CMS/HCC) Take 1 Tablet (5 mg) by mouth 2 times daily. 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 Defer follow up screening colonoscopy on basis of age? 12/2011: Small adenoma. 07/2007: Small cecal adenoma, mild tic IH. 2002: IH, mild-mod tics. 1997: neg. 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 12/02/2018 Encounters Date Type Department Care Team Description 04/03/2024 External Device Data STL ABSTRACTION Provider, Abstract 04/01/2024 External Device Data ST[facility] ABSTRACTION Provider, Abstract 02/13/2024 Orders Only [facility] - Charanjit [address] [address] Mansoor Conde MD 02/13/2024 Telephone [facility] - Charanjit [address] [place] [address] Mansoor Conde MD blood clot from Last 3 Months Family History Medical History Relation Name Comments Heart Disease Father Colon Cancer Mother Relation Name Status Comments Father Mother Social History Tobacco Use Types Packs/Day Years Used Date Smoking Tobacco: Never Smokeless Tobacco: Never Tobacco Cessation:Counseling Given: Not Answered Alcohol Use Standard Drinks/Week Comments Yes 0 (1 standard drink = 0.6 oz pur e alcohol) social Comments No Sex and Gender Information Value Date Recorded Sex Assigned at Not on file Legal Sex Female 4:11 AM FREEZER TUNNEL OPERATOR Gender Identity Not on file Sexual Orientation Not on file Last Filed Vital Signs Vital Sign Reading Time Taken Comments Blood Pressure 100/59 11/20/2023 11:37 AM CDT Pulse 75 05/31/2023 11:11 AM CDT Temperature 36.5 C (97.7 F) 11/20/2023 11:37 AM CDT Respiratory Rate 16 11/20/2023 11:37 AM CDT Oxygen Saturation 95% 11/20/2023 11:37 AM CDT Inhaled Oxygen Concentration - - Weight 89.4 kg (197 lb) 11/20/2023 11:37 AM CDT Height 165.1 cm (5' 5 ) 08/01/2021 11:26 AM CDT Body Mass Index 32.78 08/01/2021 11:26 AM CDT Plan of Treatment Upcoming Encounters Date Type Department Care Team (Late st Contact Info) Description 05/19/2024 1:00 PM CDT Office Visit [facility] - Charanjit [address] [place] [address] Mansoor Conde MD [address] [place] [address] Health Maintenance Due Date Last Done Comments DTAP/TDAP/TD VACCINES (1 - Tdap) [birth year]28/1954 OSTEOPOROSIS SCREENING 2001 RSV VACCINE (60+ or ) (1 - 1-dose 75+ series) 12/28/2011 ZOSTER VACCINE (2 of 3) 03/05/2015 01/08/2015 PNEUMOCOCCAL VACCINE 65+ YEA RS (2 of 2 - PCV) 01/15/2016 01/14/2015 COLORECTAL SCREENING 12/18/2019 12/17/2014, 12/17/2014, 12/20/2011, Additional history exists INFLUENZA VACCINE (#1) 2023 0, 12/22/2018, 12/22/2018, Additional history exists Procedures Procedure Name Priority Date/Time Associated Diagnosis Comments US VENOUS DOPPLER LEG RIGHT Routine 02/13/2024 2:23 PM FREEZER TUNNEL OPERATOR ENDOSCOPY, COLON, SCREENING Routine 12/17/2014 from Last 3 Months or Most Recently Relevant to Health Maintenance Results * US VENOUS DOPPLER LEG RIGHT (02/13/2024 2:23 PM FREEZER TUNNEL OPERATOR) Anatomical Region Laterality Modality Lower Extremity Other Mansoor Conde MD US ORDERABLES Final Result * (ABNORMAL) ENDOSCOPY, COLON, SCREENING (12/17/2014) Alexander Cee MD GI PROCEDURE ORDERABLES Edited R esult - Final [facility] from Last 3 Months or Most Recently Relevant to Health Maintenance Insurance [employer] [facility] AETNA PPO MCR Care Teams Water Softener Servicer And Installer Relationship Specialty Start Date End Date Alexander Calhoun MD [address] [place] [address] PCP - General Internal Medicine 05/29/18
--- OUTSIDE RECORDS SUMMARY | 2024-04-20 14:40 | XMS_ITS | Data Portability ---
Author Organization [place] - [facility], Main Office Address [address] [place] [address] Care Team Providers Care Geography Head Name Role Phone RAUL CHAMPION Primary Care Provider RAUL CHAMPION Referring Provider Assessment Encounter Date Assessment Date Assessment LastModified by Organization Details LastModified Time 11/15/2022 11/15/2022 HPI: Patient returns. She is here for cortisone injection both her knees. Last shot was 3 months ago. She gets 2-2 and half months good relief from the injections. She did have a couple questions about surgical option with her knees. 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 Talked with her that this would put her had a significant increased risk regarding total knee arthroplasty. She is 86, almost 87 and she is somewhat deconditioned I think recovery from total knee would be very problematic for her. She gets excellent relief from the injections and I think her safest route is to continue with injections. After discussing this with her she felt the same way. Physical exam: 86-year-old female alert pleasant. She walks with a 4 wheeled walker. She has zbsp-sq-kudeupqw effusions both knees. Moderate pain with patellofemoral grind in both knees. No mediolateral joint line tenderness. No increased swelling in either lower extremity. ChloraPrep used on skin 20 mg Kenalog and 3 cc of 0.5% ropivacaine was injected into both knees. 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 Shots continue to work well for her. I will see her 3 months. Not available 11/15/2022 14:37:17 12/13/2022 12/13/2022 HPI: Patient returns. She is here for cortisone injections in both trochanteric bursae. Last shots were 3 months ago. She gets 2 months. Most likely has some tearing adductor tendons. Shocks were well for it she wishes to continue with these. Physical exam: Patient does walk with a 4 wheeled walker. Without the walker she does not have a significant Trendelenburg sag in either hip when she is walking. She has moderate tenderness over both trochanteric bursae. She has some mild weakness with abductor testing in lateral position both hips. After ChloraPrep was used on skin 20 mg Kenalog and 3 cc of 0.5% ropivacaine was injected into both trochanteric bursas that point maximal tenderness. Impression: Patient has chronic trochanteric bursitis both hips. Shots continue to work well for her. I will see her in 3 months. Not available 12/13/2022 14:11:35 02/14/2023 02/14/2023 The patient has severe primary osteoarthritis both knees in the patellofemoral articulations more moderate in the tibial femoral articulations both knees. Under sterile conditions at her request I injected both knee joints in the office today with 4 cc of 0.5% bupivacaine and 20 mg of Kenalog each. Patient tolerated the procedure well. We will see her back as needed we can do this again in 3 months if necessary she voiced understanding and agrees with above plan she will call for any further problems difficulties or questions. [email or web address] Not available 02/14/2023 14:59:12 03/21/2023 03/21/2023 HPI: Patient returns. She is here for injections into both her trochanteric bursae. Last shots were 3 months ago. They continue to give her good relief of her pain. She most likely has chronic tearing of the abductor tendons in both hips. She wished to have additional injections today. Physical exam: 87-year-old female alert. She is overweight and deconditioned. She has a 4 wheeled walker. She has moderate tenderness over both trochanteric bursae the palpation. She has ahhz-yx-lofdemie weakness with abduction testing in lateral position both hips. ChloraPrep was used on skin 20 mg Kenalog and 3 cc of 0.5% ropivacaine was injected into both areas maximal tenderness at the trochanteric bursae. Impression: 87-year-old female who has chronic abductor tendon tearing. Shots continue to give her good relief. We will see her in 3 months. Not available 03/21/2023 15:08:54 06/27/2023 06/27/2023 HPI: Patient returns. She is here for cortisone injections into both of her trochanteric bursae. Last shots were little more than 4 months ago. She is excellent relief from her injections. 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 She occasionally will have some groin pain. But most of her pain is over the lateral hip at the trochanteric bursae. Since I saw her last she was diagnosed again with a blood clot, she states that it was in her left groin area so would imagine this would be the femoral vein. She sees Dr. Conde For this. She would like additional injections today. Physical exam: 87-year-old female she is alert. She walks with a 4 wheeled walker. She has severe tenderness over both trochanteric bursae palpation. Mild weakness with abductor testing in lateral position of both hips. After alcohol prep 20 mg Kenalog and 3 cc of 0.5% ropivacaine was injected into both trochanteric bursae. 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 Shots continue to give her good benefit from time to time. She will call she feels she needs additional injections. Not available 06/27/2023 12:15:25 Plan of Treatment Reminders Order Date Submit Date Provider Last Modified By Organization Details Last Modified Time Details Appointments None recorded. Lab None recorded. Referral None recorded. Procedures injection/a spiration joint/bursa (PROC) - in office procedure, administere d by provider 2022 023 [email or web address] In-Office Order, Internal Use Only DO Not Attach Compendium DO Not Attach Compendium, Do Not Delete/merge, [id number] 13:54:13 injection/a spiration joint/bursa (PROC) - in office procedure, administere d by provider 2022 023 In-Office Order, Internal Use Only DO Not Attach Compendium DO Not Attach Compendium, Do Not Delete/merge, [id number] 13:58:34 injection/a spiration joint/bursa (PROC) 2022 023 [email or web address] In-Office Order, Internal Use Only DO Not Attach Compendium DO Not Attach Compendium, Do Not Delete/merge, [id number] 14:50:17 injection/a spiration joint/bursa (PROC) - in office procedure, administere d by provider 2023 024 [email or web address] In-Office Order, Internal Use Only DO Not Attach Compendium DO Not Attach Compendium, Do Not Delete/merge, [id number] 14:37:54 injection/a spiration joint/bursa (PROC) - in office procedure, administere d by provider 2023 024 [email or web address] In-Office Order, Internal Use Only DO Not Attach Compendium DO Not Attach Compendium, Do Not Delete/merge, [id number] 11:47:28 Surgeries None recorded. Imaging XR, knee 2022 023 [email or web address] [facility] [place], [facility] [address], [place], [address], 3 15:08:03 Medication Orders Kenalog 10 mg/mL suspension for injection [address], [address] [place] [address], [address], 3 14:43:39 ropivacaine (PF) 5 mg/mL (0.5 %) injection solution [address], [address] [place] [address], [address], 3 14:43:39 Kenalog 10 mg/mL suspension for injection [address], [address] [place] [address], [address], 3 16:17:10 ropivacaine (PF) 5 mg/mL (0.5 %) injection solution [address], [address], 3 16:17:10 bupivacaine HCl 0.5 % (5 mg/mL) injection solution [address], [address], 3 16:06:39 Kenalog 10 mg/mL suspension for injection [address] [place] [address], [address], 3 16:06:39 Kenalog 10 mg/mL suspension for injection [address] [place] [address], [address] [place] [address], [address], 4 15:21:37 ropivacaine (PF) 5 mg/mL (0.5 %) injection solution [address], [address], 4 15:21:37 Kenalog 10 mg/mL suspension for injection [address] [place] [address], [address] [place] [address], [address], 4 12:18:26 bupivacaine HCl 0.5 % (5 mg/mL) injection solution [address] [place] [address], [address], 4 12:18:26 Patient TargetsNo targets recorded. Patient InstructionsNo instructions recorded. Reason for Referral None Reported. Results Created Date Observation Date Name Description Value Unit Range Abnormal Flag Note LastModifiedBy Organization Detail LastModifiedTime 11/16/19 23 XR, knee No observ ation record ed. [facility] [address], [place], [address], 11/15/2022 14:35:12 Result Notes None recorded. Problems Name Problem SNOMED Code Status Onset Date Resolution Date Notes Provider Name and Address Organization Details Recorded Time Osteoarthr itis of bilateral hip joints 4292490694902 05 Active 2021 Not Available [facility] 3 16:25:52 Bilateral hip joint pain 5289152883189 9100 Active 2021 Not Available [facility] 3 16:25:53 Localized, primary osteoarthr itis of the pelvic region and thigh 696685875 Active Not Available [facility] 3 16:25:53 Osteoarthr itis of knee 945100823 Active 2021 Not Available [facility] 3 16:25:53 Enthesopat hy of hip region 76540920 Active Not Available [facility] 3 16:25:53 Osteoarthr itis 757620507 Active Not Available [facility] 3 16:25:53 Postmenopa usal bleeding 31213528 Active Not Available [facility] 3 16:25:53 Bilateral osteoarthr itis of knees 2461339194218 07 Active 2022 GISELLA Rosado, [place] - [facility] 3 13:47:28 Trochanter ic bursitis of right hip 4204828195077 00 Active 2023 GISELLA Rosado null, [place] - [facility] 4 14:36:32 Trochanter ic bursitis of left hip 6916755161544 03 Active 2023 GISLELA Rosado null, [place] [facility] 4 14:36:39 Problem Notes None recorded. Procedures Surgical History None recorded. Imaging Results Imaging Date Name Status LastModified by Organiz ation Details LastModified Time 11/15/2022 XR, knee completed [facility] [address], [place], [address], 11/15/2022 14:35:12 Procedure Notes None recorded. Medical Equipment None Reported. Allergies No known drug allergies Medications Name Sig Start Date Stop Date Status Note LastModified by Organization Details LastModified Time amoxicillin 500 mg capsule 05/11 completed Not Available Not Available Not Available trazodone 50 mg tablet 08/14 completed Not Available Not Available Not Available azithromyci n 250 mg tablet active Not Available Not Available Not Available hydrocodone 5 mg-acetamin ophen 325 mg tablet 05/11 completed Not Available Not Available Not Available ondansetron HCl 4 mg tablet 05/11 completed Not Available Not Available Not Available bupivacaine HCl 0.5 % (5 mg/mL) injection solution in office 2023 active Not Available Not Available Not Avai lable diphenoxyla te-atropine 2.5 mg-0.025 mg tablet 05/11 completed Not Available Not Available Not Available ciprofloxac in 250 mg tablet 05/11 completed Not Available Not Available Not Available amlodipine 5 mg tablet active Not Available Not Available Not Available ciprofloxac in 500 mg tablet 05/11 completed Not Available Not Available Not Available sulfamethox azole 800 mg-trimetho prim 160 mg tablet 08/14 completed Not Available Not Available Not Available aspirin 81 mg tablet,john yed release Take 1 tablet every day by oral route. 05/11 completed Not Available Not Available Not Available bisoprolol fumarate 10 mg tablet active Not Available Not Available No t Available citalopram 20 mg tablet TK 1 T PO D active Not Available Not Available No t Available lorazepam 0.5 mg tablet 05/11 completed Not Available Not Available Not Available Kenalog 10 mg/mL suspension for injection in office 2023 active [facility]: 0003- 0494- 20 Not Available Not Available Not Available baclofen 10 mg tablet 05/11 completed Not Available Not Available Not Available benzonatate 100 mg capsule active Not Available Not Available Not Available pantoprazol e 40 mg tablet,john yed release 05/11 completed Not Available Not Available Not Available hyoscyamine sulfate 0.125 mg tablet 08/22 completed Not Available Not Available Not Available hyoscyamine 0.125 mg sublingual tablet 08/22 completed Not Available Not Available Not Available hydrochloro thiazide 12.5 mg capsule active Not Available Not Available Not Available hydrocortis one 2.5 % topical cream 05/15 completed Not Available Not Available Not Available montelukast 10 mg tablet active Not Available Not Available Not Available zolpidem 5 mg tablet TK 1 T PO HS PRF INSOMNIA active Not Available Not Available No t Available methylpredn isolone 4 mg tablets in a dose pack FOLLOW PACKAGE DIRECTION S active Not Available Not Available No t Available albuterol sulfate HFA 90 mcg/actuati on aerosol inhaler active Not Available Not Available Not Available amoxicillin 875 mg-potassiu m clavulanate 125 mg tablet 05/11 completed Not Available Not Available Not Available enoxaparin 80 mg/0.8 mL subcutaneou s syringe active Not Available Not Available No t Available ezetimibe 10 mg tablet active Not Available Not Available Not Available cholestyram ine (with sugar) 4 gram oral powder MIX AND DRINK 1 SCOOP QD 05/11 completed Not Available Not Available Not Available Klor-Con M20 mEq tablet,exte nded release active Not Available Not Available Not Available nitrofurant oin monohydrate /macrocryst als 100 mg capsule 05/11 completed Not Available Not Available Not Available Citrucel (sucrose) 05/11 completed Not Available Not Available Not Available zolpidem 2013 active Not Available Not Available Not Avai lable lidocaine (PF) 5 mg/mL (0.5 %) injection solution in office procedure , administe red by provider 02/15 completed Not Available Not Available Not Available Zostavax (PF) 19,400 unit/0.65 mL subcutaneou s suspension 05/11 completed Not Available Not Available Not Available Xarelto 10 mg tablet active Not Available Not Available No t Available ropivacaine (PF) 5 mg/mL (0.5 %) injection solution in office 2023 active Not Available Not Available Not Avai lable Xarelto 15 mg tablet 05/11 completed Not Available Not Available Not Available Xarelto 20 mg tablet TAKE 1 TABLET BY MOUTH ONCE DAILY active Not Available Not Available No t Available Myrbetriq 25 mg tablet,exte nded release active Not Available Not Available Not Available Myrbetriq 50 mg tablet,exte nded release 08/22 completed Not Available Not Available Not Available Eliquis 5 mg tablet active Not Available Not Available No t Available Fluvirin 2909-5069 45 mcg (15 mcg x 3)/0.5 mL intramuscul ar suspension ADM 0.5ML UTD active Not Available Not Available No t Available potassium chloride ER 20 mEq tablet,exte nded release 05/11 completed Not Available Not Available Not Available Caltrate 05/11 completed Not Available Not Available Not Available Fluzone High-Dose (PF) 180 mcg/0.5 mL intramuscul ar syringe INJECT 0.5 ML INTRAMUSC ULARLY DIRECTED. 05/11 completed Not Available Not Available Not Available Fluzone High-Dose (PF) 180 mcg/0.5 mL intramuscul ar syringe 05/11 completed Not Available Not Available Not Available Fluzone High-Dose 1259-2079 (PF) 180 mcg/0.5 mL intramuscul ar syringe 05/11 completed Not Available Not Available Not Available Fluzone High-Dose 3976-1180 (PF) 180 mcg/0.5 mL intramuscul ar syringe 05/11 completed Not Available Not Available Not Available Trelegy Ellipta 200 mcg-62.5 mcg-25 mcg powder for inhalation active Not Available Not Available N ot Available Gemtesa 75 mg tablet active Not Available Not Available No t Available Vitals Date Recorded Body height Provider Name an d Address Organization Details Last Updated DateTime 11/15/2022 157.48 cm GISELLA Rosado [facility] 11/15/2022 13:52:48 Date Recorded Body height Provider Name an d Address Organization Details Last Updated DateTime 12/13/2022 157.48 cm GISELLA Rosado [employer] [facility] [employer] [facility] 12/13/2022 13:57:07 Date Recorded Body height Body mass index (BMI) Body weight Provider Name and Address Organization Details Last Updated DateTime 02/14/2023 157.48 cm 34.8 kg/m2 71977.55 g Pilar De La Cruz [facility] 02/14/2023 14:48:38 Date Recorded Body height Provider Name an d Address Organization Details Last Updated DateTime 03/21/2023 157.48 cm Meryl White [facility] 03/21/2023 14:35:25 Date Recorded Body height Provider Name an d Address Organization Details Last Updated DateTime 06/27/2023 157.48 cm Meryl White [facility] 06/27/2023 11:44:58 Social History Question Answer Notes LastModified by Organizat ion Details LastModified Time Tobacco Smoking Status Never Smoker Not Available [facility] 05/10/2022 16:25:15 What Is Your Level Of Alcohol Consumption? None [id number] Information not available 05/10/2022 Sex: Unknown Functional Status None recorded. Mental Status None recorded. Family History Relationship Description Onset Age of this Age Resolved Age Notes LastModified by Organization Details LastModified Time Mother Complication of anesthesia [id number] Not available 05/10/2022 16:25:18 Mother Family history of malignant neoplasm [id number] Not available 05/10/2022 16:25:18 Mother Hypertensive disorder [id number] Not available 05/10/2022 16:25:18 Father Heart disease [id number] Not available 05/10/2022 16:25:18 Medical History Condition Response BLINDNESS N KIDNEY STONES N CARPAL TUNNEL SYNDROME N MRSA N LUNG DISEASE/DISORDER N HISTORY OF DRUG ABUSE N RADIATION / CHEMOTHERAPY N COPD N SPORTS INJURY N ANKLE PAIN N BLOOD DISEASES N SCHIZOPHRENIA N SHINGLES N SHOULDER PAIN N DEPRESSION (INCLUDING POST ) N BOWEL PROBLEMS N STROKE/TIA N ULCERS N KNEE PAIN N BENIGN PROSTATIC HYPERPLASIA N OBESITY N GERD/NAUSEA N ANEURYSM N URINARY/BLADDER/KIDNEY PROBLEMS Y CORONARY ARTERY DISEASE (CAD) N ADDICTION CONCERNS N USE OF BLOOD THINNERS N SKIN PROBLEMS N EMPHYSEMA N MUSCLE,JOINT OR BONE PROBLEMS N DVT N STOMACH ULCERS N BLOOD CLOTS Y USE OF NSAIDS N CONCUSSION OR SPINAL TRAUMA N NEUROPATHY N AIDS/HIV N FRACTURES N HYPERTENSION Y ELBOW PAIN N TOURETTE'S N Metal allergy N ANXIETY DISORDER N BLOOD TRANSFUSION N ANEMIA/BLOOD DISORDER N BIPOLAR DISORDER N BRONCHITIS N OSTEOARTHRITIS N TUBERCULOSIS N FOOT PROBLEM N HEART VALVE DISORDERS N ALLERGIES/HAYFEVER N SOFT TISSUE INJURY N INFECTIOUS DISEASE N HEART ARRHYTHMIA N INSOMNIA N HIGH CHOLESTEROL / HYPERLIPIDEMIA N RHEUMATOID ARTHRITIS N EDEMA N CHRONIC PAIN SYNDROME N CAROTID BLOCKAGE N BACK / NECK PROBLEMS N HAVE YOU BEEN HOSPITALIZED OR SEEN IN [facility] IN THE PAST YEAR ? N BURSITIS N HERNIATED DISC N DIALYSIS N FIBROMYALGIA N OSTEOPOROSIS N ARTHRITIS N NO SIGNIFICANT PAST MEDICAL HISTORY N PERIPHERAL NEUROPATHY N DIABETES, TYPE N HEARTBURN / REFLUX N HEPATITIS / LIVER DISEASE N GOUT N ALZHEIMER'S DISEASE N SLEEP DISORDER N HERPES N HEADACHES/MIGRAINES N SEIZURES/EPILEPSY N VASCULAR DISEASE N Blood Disorder N HIP PAIN N DIZZINESS N HEAD TRAUMA OR INJURY N HEART DISEASE/HEART PROBLEMS N MULTIPLE SCLEROSIS N CANCER: SPECIFY N CARDIAC ARRHYTHMIA N ANESTHESIA COMPLICATIONS N ATRIAL FIBRILLATION N AUTOIMMUNE DISEASE N Gynecological HistoryNo gynecological history recorded. Obstetrics History GPAL:G 0 P 0 0 0 0 Past Encounters Encounter ID Performer Location Encounter Start Date Encounter Closed Date Diagnosis/Indication Diagnosis SNOMED-CT Code Diagnosis ICD10 Code Diagnosis Note [id number] [facility] [address] [place] [address] 08/22/2021 00:00:00 09/25/2021 15:41:46 [id number] [facility] [address] [place], [place] [address] 10/03/2021 00:00:00 10/03/2021 14:53:29 [id number] [facility] [place] [address] [place], [place] [address] 11/16/2021 00:00:00 11/16/2021 14:23:47 [id number] [facility] [place] [address] [place], [place] [address] 02/01/2022 00:00:00 02/01/2022 16:39:58 [id number] [facility] [place] [address] [place], [place] [address] 02/15/2022 00:00:00 02/15/2022 14:31:53 [id number] KATHY Goldberg [facility] [address] [place] [address] 05/15/2022 13:40:34 05/15/2022 13:58:58 Bilateral osteoarthritis of knees 5758975923 78434 M17.0 [id number] Mckay Montero PA [facility] [place] [address] [place] [address] 05/29/2022 14:03:51 05/29/2022 14:45:02 Osteoarthritis 125193580 M16.0 [id number] Mckay Montero PA [facility] [place] [address] [place] [address] 08/14/2022 13:06:11 08/14/2022 14:45:12 Bilateral osteoarthritis of knees 8136961974 55110 M17.0 [id number] KATHY Goldberg [facility] [place] [address] [place] [address] 09/08/2022 13:54:28 09/08/2022 15:26:25 Bilateral hip joint pain 2039216761 9561382 M25.551 M25.181 [id number] KATHY Goldberg [facility] [address] [place] [address] 11/15/2022 13:50:57 11/15/2022 15:08:03 Bilateral osteoarthritis of knees 7450229487 41174 M17.0 [id number] KATHY Goldberg [facility] [place] [address] [place] [address] 12/13/2022 13:55:46 12/13/2022 15:16:24 Bilateral hip joint pain 6979401681 7605063 M25.551 M25.018 [id number] KATHY Wheeler [facility] [address] [place] [address] 02/14/2023 14:41:50 02/14/2023 15:31:54 Bilateral osteoarthritis of knees 5619567144 50730 M17.0 [id number] Mckay Montero PA [facility] [place] [address] [place] [address] 03/21/2023 14:34:10 03/21/2023 15:17:48 Trochanteric bursitis of right hip 2984794458 48038 M70.61 Trochanter ic bursitis of left hip 7141127843 93658 M70.62 [id number] KATHY Goldberg [facility] [place] [address] [place] [address] 06/27/2023 11:43:41 06/27/2023 12:19:08 Trochanteric bursitis of right hip 3363554359 85886 M70.61 Trochanter ic bursitis of left hip 6099098798 64518 M70.62 Health Concerns Section Related Observation LastModified by Organization Detai ls LastModified Time None Recorded Concern Status LastModified by Organization Details LastModified Time None Recorded Advance Directives Directive None Recorded Payers Encounter Date Sequence Insurance Name Policy Number Policy Orellana Covered Member ID Orellana Member ID Guarantor Name 11/15/2022 1 [employer] (MEDICARE REPLACEMENT PPO) [id number] Dee [place] [id number] Dee Dee S Princess 12/13/2022 1 [employer] (MEDICARE REPLACEMENT PPO) [id number] Dee Dee S [place] [id number] Dee Dee S [place] 02/14/2023 1 [employer] (MEDICARE REPLACEMENT PPO) [id number] Dee Dee S [place] [id number] Dee Dee S Princess 03/21/2023 1 [employer] (MEDICARE REPLACEMENT PPO) [id number] Dee Dee S [place] [id number] Dee Dee S [place] 06/27/2023 1 [employer] (MEDICARE REPLACEMENT PPO) [id number] Dee Dee S [place] [id number] Dee Dee S [place] Notes Date Note Type Note Provider Name and Address Organization Details Recorded Time 02/14/2023 text/html Patient returns complaining of bilateral knee pain. She has moderate primary osteoarthritis of the tibial femoral articulations both knees and severe primary osteoarthritis of the bilateral patellofemoral articulations with [id number]-[id number] changes here. She has aching pain has trouble ambulating at times. She uses a rolling walker for support. She denies any new trauma or injury no new symptoms or complaints no erythema effusion or signs of infection today. She comes in today requesting repeat cortisone injections both knees been 3 months since her last injections. At 87 years of age with other medical issues she is not a good candidate for total knee arthroplasty. KATHY Wheeler [address] [facility], [facility] [address], [place], [address], [place] [facility] [place] [employer] 02/14/2023 14:59:29 OBGyn Episode No OBEpisode recorded.
--- OUTSIDE RECORDS SUMMARY | 2024-04-20 14:40 | XMS_ITS | Encounter Summary ---
Author Organization [facility] Address 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 Gender Identity Not on file Sexual Orientation Not on file documented as of this encounter Plan of Treatment Upcoming Encounters Date Type Department Care Team (Late st Contact Info) Description 05/19/2024 1:00 PM CDT Office Visit [facility]3] Oncology and Hematology - Charanjit [address] [facility] [address] [place] [address] Mansoor Conde MD [address] [facility] [address] [place] [address] documented as of this encounter Visit Diagnoses Not on filedocumented in this encounter Care Teams Clerical Support Specialist Relationship Specialty Start Date End Date Alexander Calhoun MD [address] [place] [phone] PCP - General Internal Medicine 05/29/18 documented as of this encounter
--- OUTSIDE RECORDS SUMMARY | 2024-04-20 14:40 | XMS_ITS | Encounter Summary ---
Author Organization [facility] Address [address] [place] [address] Care Team Providers Care Commercial Energy Auditor Name Role Phone Alexander Calhoun MD Primary Care Provider [phone] Encounter Details Date Type Department Care Team (Late st Contact Info) Description 11/01/1999 Outpatient Historical HIS MD Miguel HERNANDEZ Stephen, MD Social History Tobacco Use Types Packs/Day Years Used Date Smoking Tobacco: Never Assessed Comments Unknown Sex and Gender Information Value Date Recorded Sex Assigned at Not on file Legal Sex Female 4:11 AM STEP DOWN NURSE Gender Identity Not on file Sexual Orientation Not on file documented as of this encounter Plan of Treatment Upcoming Encounters Date Type Department Care Team (Late st Contact Info) Description 05/19/2024 1:00 PM CDT Office Visit [facility] Oncology and Hematology - Charanjit [address] [place] [address] [facility] [address] [place] [address] Mansoor Conde MD [address] [facility] [address] [place] [address] documented as of this encounter Visit Diagnoses Not on filedocumented in this encounter Care Teams Commercial Energy Auditor Relationship Specialty Start Date End Date Alexander Calhoun MD [address] [place] [address] PCP - General Internal Medicine 05/29/18 documented as of this encounter
--- OUTSIDE RECORDS SUMMARY | 2024-04-20 14:40 | XMS_ITS | Encounter Summary ---
Author Organization [facility] Address 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 RESERVATION SALES AGENT Gender Identity Not on file Sexual Orientation Not on file documented as of this encounter Plan of Treatment Upcoming Encounters Date Type Department Care Team (Late st Contact Info) Description 05/19/2024 1:00 PM CDT Office Visit [facility] Oncology and Hematology - Charanjit [address] [place] [address] [facility] 200 [place] [address] Mansoor Conde MD [address] [facility] [address] [place] [address] documented as of this encounter Visit Diagnoses Not on filedocumented in this encounter Care Teams Material Disposition Inspector Relationship Specialty Start Date End Date Alexander Calhoun MD [address] [place] [address] PCP - General Internal Medicine 05/29/18 documented as of this encounter
--- OUTSIDE RECORDS SUMMARY | 2024-04-20 14:40 | XMS_ITS | Encounter Summary ---
Author Organization [facility] Address 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 MYSQL DEVELOPER Gender Identity Not on file Sexual Orientation Not on file documented as of this encounter Plan of Treatment Upcoming Encounters Date Type Department Care Team (Late st Contact Info) Description 05/19/2024 1:00 PM CDT Office Visit [facility] Oncology and Hematology - Charanjit [address] [facility] 200 [place] [address] Mansoor Conde MD [address] [facility] [address] [place] [address] documented as of this encounter Visit Diagnoses Not on filedocumented in this encounter Care Teams Recovery Advocate Relationship Specialty Start Date End Date Alexander Calhoun MD [address] [place] [phone] PCP - General Internal Medicine 05/29/18 documented as of this encounter
--- OUTSIDE RECORDS SUMMARY | 2024-04-20 14:40 | XMS_ITS | Encounter Summary ---
Author Organization [facility] Address 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 POLISHER Gender Identity Not on file Sexual Orientation Not on file documented as of this encounter Plan of Treatment Upcoming Encounters Date Type Department Care Team (Late st Contact Info) Description 05/19/2024 1:00 PM CDT Office Visit [facility] Oncology and Hematology - Charanjit [address] [place] [address] [facility] [address] [place] [address] Mansoor Conde MD [address] [facility] [address] [place] [address] documented as of this encounter Visit Diagnoses Not on filedocumented in this encounter Care Teams Prosthetic Aides Teacher Relationship Specialty Start Date End Date Alexander Calhoun MD [address] [place] [address] PCP - General Internal Medicine 05/29/18 documented as of this encounter
--- OUTSIDE RECORDS SUMMARY | 2024-04-20 14:40 | XMS_ITS | Encounter Summary ---
Author Organization [facility] Address [address] [facility] [place] [address] Care Team Providers Care Cad Librarian Name Role Phone Alexander Calhoun MD Primary Care Provider [phone] Encounter Details Date Type Department Care Team (Late st Contact Info) Description 04/04/2023 Lab Requisition [facility] - DermPath Lab [address] [facility], [place] [address] Christiano Gan MD [facility] [address] [place] [address] Neoplasm of uncertain behavior of skin Social History Tobacco Use Types Packs/Day Years [...] Procedure Name Priority Date/Time Associated Diagnosis Comments DERMATOPATHOLOGY Routine 04/04/2023 3:33 AM ROLLER REPAIRER Neoplasm of uncertain behavior of skin documented in this encounter Results * DERMATOPATHOLOGY (04/04/2023 3:33 AM ROLLER REPAIRER) Case Report Dermatopathology Report Case: [id number] Authorizing Provider: Christiano Gan MD Collected: 04/04/2023 03:33 AM Ordering Location: [facility] Derm[facility] Lab Received: 04/06/2023 07:39 AM Pathologist: Yesika Lopez MD Specimen: Skin, frontal scalp 3:28 PM [facility] Final Diagnosis Specimen A. 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 The specimen consists of a shave biopsy measuring 12x7x6 mm. Jar 0. 3:28 PM [facility] Microscopic Description Specimen A. SKIN, frontal scalp: The epidermis shows parakeratosis, full thickness disorderly maturation of keratinocytes, mitoses at different levels, and dyskeratotic cells. There is a column of marked compact hyperkeratosis. 3:28 PM [facility] Disclaimer An external and internal positive and negative controls are appropriate for the histochemical, immunohistochemical and immunofluorescence stain(s) in this case (if any), except where stated explicitly. The performance characteristics of the stain(s) cited in this report were developed and its performance characteristic determined by the Dermatopathology Laboratory at [facility], directed by Dr. Karin Xiong. These tests need not be, and therefore are not, approved by the [place] Food and Drug Administration. The tests are used for clinical purposes. Billing Codes Specimen Charges Stain Charges 75537 1 3:28 PM [facility] Embedded Images 3:28 PM [facility] Pathology/Cytolo gy TISSUE SPECIMEN FROM SKIN / Unknown 04/04/2023 3:33 AM ROLLER REPAIRER 04/06/2023 7:39 AM [facility] Christiano Gan MD LAB - PATHOLOGY/CYTO LOGY ORDER[facility]LES DERMATOPATHOLOGY LABORATORY [facility] - Department of Dermatology [address], [address] [phone] documented in this encounter Visit Diagnoses Diagnosis Neoplasm of uncertain behavior of skin documented in this encounter Care Teams Cad Librarian Relationship Specialty Start Date End Date Alexander Calhoun MD PCP - General 05/15/18 documented as of this encounter
--- OUTSIDE RECORDS SUMMARY | 2024-04-20 14:40 | XMS_ITS | Continuity of Care Document ---
Author Organization [facility] Address [address] [place] [address] [address] [place] [address] Phone Care Team Providers Care Clasp Machine Operator Name Role Phone Ramona PT, DPTMatias Unavailable Unavailable Procedures Procedure Date PT Re-evaluation Therapeutic Exercise Therapeutic Activities Therapeutic Exercise Therapeutic Activities Therapeutic Exercise Therapeutic Activities Therapeutic Activities Neuromuscular Re-Ed Therapeutic Activities Neuromuscular Re-Ed Therapeutic Exercise Therapeutic Activities Neuromuscular Re-Ed Therapeutic Exercise Therapeutic Activities Therapeutic Exercise Therapeutic Activities Therapeutic Exercise Therapeutic Activities Therapeutic Exercise Therapeutic Activities Neuromuscular Re-Ed Therapeutic Exercise Therapeutic Activities Neuromuscular Re-Ed PT Evaluation Moderate Complexity Therapeutic Activities Neuromuscular Re-Ed THERAPEUTIC EXERCISES NEUROMUSCULAR RE-ED Mobility: Walking And Moving Limitaion- Discharge Mobility: Walking And Moving Limitation- Goal Medications Name Dose Freq Route DOC Feb THERAPEUTIC EXERCISES NEUROMUSCULAR RE-ED THERAPEUTIC EXERCISES NEUROMUSCULAR RE-ED THERAPEUTIC EXERCISES NEUROMUSCULAR RE-ED THERAPEUTIC EXERCISES NEUROMUSCULAR RE-ED THERAPEUTIC EXERCISES NEUROMUSCULAR RE-ED PT EVALUATION THERAPEUTIC EXERCISES NEUROMUSCULAR RE-ED Mobility: Walking And Moving Limitations -Curent Mobility: Walking And Moving Limitation- Goal Medications Name Dose Freq Route DOC Jan Pain Assess Negative DOC 2015 BMI High F/U Plan DOC No Falls or 1 Fall w/o Injury Screened f or Fall Risk Functional Outcome Assessmen t documented, deficits identified, treatment plan es Advance Directives Directive Yes / No Effective Date File Name No Information Encounters Encounter Description Practice Location Reason(s) For Visit Diagnoses Date Provider Providers Copied on Encounter [facility], [id number], tel:[phone] [place] Low back painPain in right hip Apr-03 20- 9 Ramona Salcedo. . Referring Provider: [place], [address]. tel:[phone] [facility] [address], [id number], tel:[phone] [place] Low back painPain in right hip Apr-201 9 Ramona Salcedo. . Referring Provider: [place], [address]. tel:[phone] [facility] [address] [place] [employer], [place], [id number], [place] tel:[phone] [place] back painPain in right hip Apr- 5-201 9 Ramona Salcedo. . Referring Provider: [place], [address]. tel:[phone] [facility] [address], [id number], [place] tel:[phone] [place] back painPain in right hip Apr-1 0-201 9 Makler Luke. . Referring Provider: [place], [address]. tel:[phone] [place], [place] [id number] [facility], [place], [place], [id number], [place] tel:[phone] [place] Low back painPain in right hip Apr-0 8-201 9 Makler Luke. . Referring Provider: Alexander Calhoun, [place], [address]. tel:[phone] [place] [address] [address] [place] [address], [place], [place], [id number], [place] tel:[phone] [place] Low back painPain in right hip Apr-0 5-201 9 Makler Luke. . Referring Provider: [place], [address]. tel:[phone] [place] [address] [address] [facility], [place], [place], [id number], [place] tel:[phone] [place] back painPain in right hip Apr-0 3-201 9 Makler Luke. . Referring Provider: [place], [address]. tel:[phone] [place] [address] [address] [facility], [place], [place], [id number], [place] tel:[phone] [place] back painPain in right hip Apr-0 1-201 9 Makler Luke. . Referring Provider: [place], [address]. tel:[phone] [place] [id number] [address], [place], [place], [id number], [place] tel:[phone] [place] back painPain in right hip Mar-2 9-201 9 Makler Luke. . Referring Provider: Alexander Calhoun [address] [place], [address]. tel:[phone] [place], [place] [id number] [facility], [place], [place], [id number], [place] tel:[phone] [place] Low back painPain in right hip Mar-2 7-201 9 Ramona Hernandezke. . Referring Provider: Alexander Calhoun, [address] [place], [address]. tel:[phone] [place], [place] [id number] [facility], [place], [place], [id number], [place] tel:[phone] [place] Low back painPain in right hip Mar-2 5-201 9 Frankler Luke. . Referring Provider: Alexander Calhoun [address] [place], [address]. tel:[phone] [place] [id number] [address], [id number], [place] tel:[phone] [place] Low back painPain in right hip Mar-2 2-201 9 Ramona Hernandezke. . Referring Provider: Alexander Calhoun [address] [place], [address]. tel:[phone] [place] [id number] [address], [id number], [place] tel:[phone] [place] No Information Feb-0 2-201 6 Salgado Diomedes. , [place], [place]. Referring Provider: Alexander Calhoun [address] [place], [address]. tel:[phone] [place] [id number] [address], [id number], [place] tel:[phone] [place] No Information Jan-3 0-201 6 Damian Berryn. , [place], [place]. Referring Provider: Alexander Calhoun [address] [place], [address]. tel:[phone] [place] [id number] [address], [id number], tel:[phone] [place] No Information 6 [place], [place], [place]. Referring Provider: [place], [address]. tel:[phone] [facility], [id number], tel:[phone] [place] No Information 6 [place], [place]. Referring Provider: [place], [address]. tel:[phone] [place] [id number] [address], [id number], tel:[phone] [place] No Information 6 [place], [place]. Referring Provider: [place], [address]. tel:[phone] [facility], [id number], tel:[phone] [place] No Information 6 [place], . Referring Provider: [place], [address]. tel:[phone] [place] [id number] [address], [id number], [place] tel:[phone] [place] Unsteadiness on feetPain, unspecifiedOth symptoms and signs involving the musculoskeletal systemMuscle weakness (generalized) 6 [place], [place]. Referring Provider: [place], [address]. tel:[phone] Family History Family Member Type Diagnosis Age At Onset No Information Payers Payer name Insurance type Covered republican ID Kasi hayes(s) AARP Medicare Complete CI [id number] Social History Type Description Quantity Date Captured Comments Sex Female Smoking Status No Information Chief Complaint And Reason For Visit No Information Reason For Referral Reason For Referral No Information History Of Present Illness Encounter Date Complaint History Of Prese nt Illness No Information Functional Status Date Functional Assessmen t No Information Instructions Date Instruction Additional Infor mation No Information Assessments Type Assessment Date No Information Patient Care Teams Name Effective Dates (start - stop) Status Members No Information
--- OUTSIDE RECORDS SUMMARY | 2024-04-20 14:40 | XMS_ITS | Referral Summary ---
Author Organization [facility] Address [address] [facility] [place] [address] Care Team Providers Care Lock And Dam Repairer Name Role Phone Alexander Calhoun MD Primary Care Provider [phone] Source Comments [facility],non-owned Affiliates and Associated Physician Practices is amultiple site organization consisting of ambulatory clinics and hospital sitesin [place], [place], [place] and [place]. This disclosure is being madepursuant to the Care Everywhere program and may not contain all information available regarding this patient. Last updated 17.[facility] Allergies No known active allergies Medications * Be aware that medications may not be up to date on this document. Alwaysverify current medications with the patient. Medication Sig Dispensed Refills Start Date End Date Status amLODIPine (NORVASC) 5 MG tablet Take 5 mg by mouth Active calcium carbonate - vitamin D (CALTRATE + D) 600-800 MG-UNIT tablet Take 1 tablet by mouth Active citalopram (CELEXA) 10 MG tablet Take 10 mg by mouth Active hydroCHLOROthiazide (MICROZIDE) 12.5 MG capsule 07/22/2017 Active MYRBETRIQ 50 MG tabletIndications:Blep harospasm Take 1 tablet by mouth once daily 02/09/2018 Active ezetimibe (ZETIA) 10 MG tabletIndications:Blep harospasm Take 10 mg by mouth once daily Active potassium chloride ER (KLOR-CON) 20 MEQ tabletIndications:Blep harospasm Take 1 tablet by mouth once daily 02/09/2018 Active bisoprolol (ZEBETA) 10 MG tabletIndications:Blep harospasm Take 1 tablet by mouth once daily 02/11/2018 Active cholestyramine light (QUESTRAN LIGHT/PREVALITE) 4 G packetIndications:Blep harospasm Take 4 g by mouth once daily 02/09/2018 Active TRELEGY ELLIPTA 100-62.5-25 MCG/INH 09/16/2018 Activ e rivaroxaban (XARELTO) 15 MG tablet Take 15 mg by mouth once daily Active propylene glycol (SYSTANE BALANCE) 0.6 % opthalmic solution Instill 1 drop into both eyes as needed for Dry Eyes Active XARELTO 10 MG tablet 12/02/2018 Acti ve Active Problems Problem Noted Date 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
--- OUTSIDE RECORDS SUMMARY | 2024-04-20 14:40 | XMS_ITS | Clinical Summary ---
Author Organization [facility] Address [address] [facility] [place] [address] Care Team Providers Care Talent Acquisition Operations Manager Name Role Phone Alexander Calhoun MD Primary Care Provider [phone] Source Comments [facility],non-owned Affiliates and Associated Physician Practices is amultiple site organization consisting of ambulatory clinics and hospital sitesin [place], [place], [place] and [place]. This disclosure is being madepursuant to the Care Everywhere program and may not contain all information available regarding this patient. Last updated 17.[facility] Allergies No known active allergies Medications * [...] Administration Dates Next Due INFLUENZA VACCINE 12/14/2017 Family History Medical History Relation Name Comments Cancer - Colon Father Cancer - Colon Mother Relation Name Status Comments Father Mother [...] Orientation Not on file Plan of Treatment Health Maintenance Due Date Last Done Comments BONE DENSITY TESTING 1936 DTAP/TDAP/TD VACCINES (1 - Tdap) 12/28/1955 PNEUMOCOCCAL VACCINE 50+ (1 of 1 - PCV) 1986 ZOSTER VACCINE (1 of 2) 1986 Respiratory Syncytial Virus (RSV) Vaccine Pt: or over 60 yrs (1 - 1-dose 75+ series) 12/28/2011 COVID-19 VACCINE ( - 2023- season) 2023 INFLUENZA VACCINE (#1) 2023 8, 11/27/2015, 01/08/2015, Additional history exists DEPRESSION SCREENING 03/12/2024 MEDICARE AWV CALENDAR YEAR 2024 HEPATITIS B VACCINE Aged Out No longe r eligible based on patient's age to complete this topic HIB VACCINE Aged Out No longer eligi ble based on patient's age to complete this topic HPV VACCINE Aged Out No longer eligi ble based on patient's age to complete this topic MENINGOCOCCAL (Group B) VACCINE Aged Out No longer eligible based on patient's age to complete this topic MENINGOCOCCAL VACCINE Aged Out No dieter monica eligible based on patient's age to complete this topic Care Teams Talent Acquisition Operations Manager Relationship Specialty Start Date End Date Alexander Calhoun MD PCP - General 05/15/18
--- NOTE | 2024-04-20 14:50 | ED_ITS ---
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 Patient tripped over her walker and fell backwards, hitting her head. She did not lose consciousness. She states she landed on her right side 1 cm the right hip that seems to have resolved. Mostly her pain is now the left hip. She denies neck pain, back pain or other injuries acquired. Denies vision changes, focal numbness or weakness, tingling to the extremity. Related Data Home Medications ?Medication ?Instructions ?Recorded ?Confirmed ?Last Taken ?Type acetaminophen 325 mg capsule 325 mg PO Q6H PRN 01/22/19 03/19/24 Unknown History citalopram 20 mg tablet 20 mg PO DAILY 01/22/19 03/19/24 Unknown History ezetimibe 10 mg tablet 10 mg PO DAILY 01/22/19 03/19/24 Unknown History hydrochlorothiazide 12.5 mg tablet 12.5 mg PO DAILY 01/22/19 03/19/24 Unknown History potassium chloride 20 mEq 20 meq PO DAILY 01/22/19 03/19/24 Unknown History tablet,extended release Caltrate with Vitamin D3 01/31/19 03/19/24 Unknown History amlodipine 5 mg tablet 5 DAILY 01/31/19 03/19/24 Unknown History bisoprolol fumarate 10 mg tablet mg 01/31/19 03/19/24 Unknown History apixaban 5 mg tablet (Eliquis) 5 mg PO BID 12/19/23 03/19/24 Unknown History calcium 260 mg (phos,tribasic)-D3 tablet PO 12/19/23 03/19/24 Unknown History 25 mcg-herbal 50 mg chewable tablet (Alive Calcium-Vitamin D3) fluticasone fur. 200 mcg-umeclid 1 inh inhalation DAILY 12/19/23 03/19/24 Unknown History 62.5 mcg-vilant 25 mcg inhalat.powder (Trelegy Ellipta) loperamide 2 mg capsule (Imodium 2 mg PO Q6H PRN 12/19/23 03/19/24 Unknown History A-D) loratadine 10 mg tablet (Allergy 10 mg PO DAILY 12/19/23 03/19/24 Unknown History Relief (loratadine)) montelukast 10 mg tablet 10 mg PO DAILY 12/19/23 03/19/24 Unknown History vibegron 75 mg tablet 75 mg PO DAILY 12/19/23 03/19/24 Unknown History ramelteon 8 mg tablet 8 mg PO QHS 03/19/24 03/19/24 Unknown History Allergies Allergy/AdvReac Type Severity Reaction Status Date / Time No Known Drug Allergies Allergy Unknown Other Verified 04/20/24 14:33 Review of Systems Review of Systems: All systems reviewed & are unremarkable except as noted in HPI and below PMFSH Past Medical History Medical History Acute bilateral low back pain without sciatica Acute cystitis with hematuria Acute deep vein thrombosis (DVT) of femoral vein of right lower extremity Encounter for follow-up of acute deep vein thrombosis (DVT) of right lower extremity Acute left-sided low back pain with left-sided sciatica Arthralgia of temporomandibular joint, unspecified side Bilateral leg pain Bilateral lower extremity edema Blood per rectum Chronic diarrhea Dietary counseling and surveillance (01/31/17) Dyspnea Essential hypertension Fatigue Frequent falls Gait instability History of blood clots Hyperlipidemia Hypersomnia Iliotibial band syndrome Left hip pain Leg cramp Mixed stress and urge urinary incontinence Pain in left leg Vitamin D deficiency Surgical History Surgical History History of cholecystectomy History of appendectomy Family History Family History Father Family history of coronary artery disease Other Blood clot in vein Carcinoma of colon Cerebrovascular accident Social History Social History Smoking status: Never smoker Second hand tobacco smoke exposure: Yes Alcohol intake: never Substance use: never Substance use type: does not use Do You Feel Safe in your Home?: Yes Lack of Transportation: No Lack of Food: Never True Current Housing: I Have Housing Concerned About Future Housing: No Difficulty Paying Gas/Electric Bills: No Difficulty Paying for Meds: No Currently Unemployed: No Education: Bachelor's Degree Difficulty w/ Childcare or Family Care: No Living arrangements: alone Additional living arrangements comments: Independent living Occupation/Education: retired Additional occupation/education comments: Teacher Gender identity (if verbalized by the patient): Female Exam Narrative: GENERAL: Well-appearing, well-nourished, and in no acute distress. HEAD: Normocephalic, atraumatic. EYES: PERRLA and EOMI. ENT: Nares clear, no rhinorrhea or epistaxis. Mucous membranes moist. NECK: No midline cervical spinous tenderness, crepitus, step-offs or deformities BACK: no midline thoracolumbar spinous tenderness, crepitus, step-offs or deformities CHEST: Clear to auscultation. No respiratory distress. HEART: Regular rate and rhythm. No murmur heard. Normal peripheral pulses. ABDOMEN: Soft, nontender, nondistended, normal active bowel sounds. EXTREMITIES: Tenderness to the left femur a minimally to the right femur with no overlying deformity or skin changes, limited range of motion of left hip secondary to pain, full range of motion of right lower extremity without difficulty. no tenderness remainder of lower extremeties. DP pulse 2 +. Sensation intact. patient able wiggle toes SKIN: Warm, dry, no rash. NEURO: No focal deficits. Alert and oriented x3 Course Vital Signs Vital signs: Vital Signs Temperature 97.8 F 04/20/24 14:22 Pulse Rate 76 04/20/24 14:22 Respiratory Rate 19 04/20/24 14:22 Blood Pressure 137/63 04/20/24 14:22 Pulse Oximetry 98 04/20/24 14:22 Oxygen Delivery Room Air 04/20/24 14:22 Temperature 97.8 F 04/20/24 14:22 Pulse Rate 76 04/20/24 14:22 Respiratory Rate 19 04/20/24 14:22 Blood Pressure 137/63 04/20/24 14:22 Pulse Oximetry 98 04/20/24 14:22 Oxygen Delivery Room Air 04/20/24 14:22 MDM - Fall MDM Narrative Medical decision making narrative: 88-year-old female presents to the ED via EMS from [facility] for a mechanical ground level fall that occurred prior to arrival. Patient did hit her head but did not lose consciousness. He is anticoagulated on Eliquis for a known DVT to the left lower extremity and prior history of PE. Patient appears atraumatic but does appear uncomfortable. Requesting pain medications for her left hip pain. Clarks provided. Vitals are stable. Exam significant for the above. Patient neurovascularly intact. Will obtain CT brain, cervical spine and bilateral hip x-ray And re-evaluate. CT brain shows no acute intracranial hemorrhage or suspicious mass effect, there are findings within the left occipital bone which may be artifactual versus an acute nondisplaced fracture. CT cervical spine shows severe degenerative disease without acute fracture. There is redemonstration of a possible nondisplaced fracture except a bone which may represent a prominent nutrient foramen dislocation. I discussed these findings with the radiologist who agrees that a occipital fractures very less likely given the patient fell on the right side has no reproducible pain on exam to the left occipital bone. Discussed this with patient and family at bedside who are in agreement with this need to not obtain further imaging. x-ray of the bilateral hip shows severe degenerative disease bilaterally without acute fracture or dislocation. Patient and son at bedside up-to-date on remainder of results. Patient feels significantly improved after Clarks and is able to ambulate at baseline in the ED. On re-evaluation the left hip remains soft, no increase in edema or evidence of hematoma. Feel patient is safe to be discharged back to [facility]. Return precautions discussed. She and her son are agreeable with the plan verbalized understanding. Discharged in stable condition. Discharge Plan Discharge Clinical Impression: Contusion of hip, left, Closed head injury Patient Disposition: Home, Self-Care Condition: Stable Instructions: Antibiotic Form, Head Injury (ED), Hip Pain (ED) Additional Instructions: You were evaluated in the emergency department after a fall. The CT of your head shows concerns for a possible fracture to the left side of the posterior part of your school versus artifact. Given you have no tenderness to this region and had no reported trauma to this region, you in your son agree to not obtain any further imaging. The x-ray of your hips show significant arthritis but no broken bones. Please rest, ice, elevate your injuries and follow-up with primary care provider. You can take Tylenol as needed for pain. Return to the emergency department if you develop vision changes, headache, significantly worsening hip pain or other concerning symptoms Patient Language: Pakistani Prescriptions: New lidocaine 5 % adhesive patch,medicated 1 patch topical DAILY Qty: 15 0RF Rx Instructions: leave on most painful area for up to 12 hrs. do not use more than 1 patch in a 24-hour period. No Action amlodipine 5 mg tablet 5 DAILY bisoprolol fumarate 10 mg tablet Caltrate with Vitamin D3 ramelteon 8 mg tablet 8 mg PO QHS Alive Calcium-Vitamin D3 260 mg calcium- 25 mcg-50 mg tablet,chewable PO Eliquis 5 mg tablet 5 mg PO BID vibegron 75 mg tablet 75 mg PO DAILY loratadine [Allergy Relief (loratadine)] 10 mg tablet 10 mg PO DAILY Trelegy Ellipta 200-62.5-25 mcg blister with device 1 inh inhalation DAILY montelukast 10 mg tablet 10 mg PO DAILY loperamide [Imodium A-D] 2 mg capsule 2 mg PO Q6H PRN acetaminophen 325 mg capsule 325 mg PO Q6H PRN citalopram 20 mg tablet 20 mg PO DAILY ezetimibe 10 mg tablet 10 mg PO DAILY hydrochlorothiazide 12.5 mg tablet 12.5 mg PO DAILY potassium chloride 20 mEq tablet extended release 20 meq PO DAILY Follow-up/Referrals: Unique,Alexander Acosta MD [Primary Care Provider] -
[2024-04-20] MEDS: HYDROcodone/acetaminophen (*CRX) 5-325 MG TABLET 1 TAB PO (15:26)
--- NOTE | 2024-04-20 16:12 | PC.NURSE ---
asked by KATHY Acharya to walk pt with walker to see how pt tolerates. with help of walker, myself, and another tech, pt was able to walk approximately 10 feet. per pt son, pt's gait and balance were her baseline, aside from a limp on the side where she is experiencing pain. KATHY Acharya aware.
[2024-04-20] MEDS: LIDOCAINE 5% PATCH 1 PATCH TRANSDERM (16:30)
[2024-04-20 16:35] VITALS: BP 126/63; PULSE 76; RESP 17; TEMP 36.6; O2SAT 98
== END 2024-04-20 16:39 ==
PROVIDERS: Emergency Provider Physician Assistant; PCP Internal Medicine
DX: S09.90XA Unspecified injury of head, initial encounter (principal); S70.02XA Contusion of left hip, initial encounter; J44.9 Chronic obstructive pulmonary disease, unspecified; I10 Essential (primary) hypertension; E78.5 Hyperlipidemia, unspecified; E55.9 Vitamin D deficiency, unspecified; N39.46 Mixed incontinence; G47.33 Obstructive sleep apnea (adult) (pediatric); Z86.711 Personal history of pulmonary embolism; Z86.718 Personal history of other venous thrombosis and embolism; Z90.49 Acquired absence of other specified parts of digestive tract; Z79.01 Long term (current) use of anticoagulants; Z79.899 Other long term (current) drug therapy; M16.0 Bilateral primary osteoarthritis of hip; M47.812 Spondylosis without myelopathy or radiculopathy, cervical region; W18.09XA Striking against other object with subsequent fall, initial encounter
CPT/HCPCS: 70450; 72125; 73521; 99284; A9270

== ENCOUNTER 2024-04-24 16:35 | Emergency (ER) | payer MEDICARE, SELFPAY ==
--- OUTSIDE RECORDS SUMMARY | 2024-04-24 16:37 | XMS_ITS | Encounter Summary ---
Author Organization [facility] Address [address] [place] [address] Care Team Providers Care Pet Stylist Name Role Phone Alexander Calhoun MD Primary Care Provider [phone] Encounter Details Date Type Department Care Team (Late st Contact Info) Description 04/22/1999 Outpatient Historical [facility] Catracho Ball MD [address] [facility] [address] [place] [address] Social History Tobacco Use Types Packs/Day Years Used Date Smoking Tobacco: Never Assessed Comments Unknown Sex and Gender Information Value Date Recorded Sex Assigned at Not on file Legal Sex Female 4:11 AM VISE HAND Gender Identity Not on file Sexual Orientation Not on file documented as of this encounter Plan of Treatment Upcoming Encounters Date Type Department Care Team (Late st Contact Info) Description 05/19/2024 1:00 PM CDT Office Visit [facility] Oncology and Hematology - Charanjit [address] [facility] [address] [place] [address] Mansoor Conde MD [address] [facility] [address] [place] [address] documented as of this encounter Visit Diagnoses Not on filedocumented in this encounter Care Teams Pet Stylist Relationship Specialty Start Date End Date Alexander Calhoun MD [address] [place] [id number] PCP - General Internal Medicine 05/29/18 documented as of this encounter
--- OUTSIDE RECORDS SUMMARY | 2024-04-24 16:37 | XMS_ITS | Continuity of Care Document ---
Author Name Auto Generated, Auto Generated Organization [facility] Support Name Relationship Address Phone Mika Sánchez Emergency Contact [address] [place] [address] Unavailable Mika Sánchez Son [address] [place] [address] Unavailable Bob Sánchez Son [address] [place] [address] Dana Hu[employer] [address] [place] [address] Unavailable Dee Dee Sánchez Financial [employer] [address] [place] [address] Dee Dee Sánchez Self [address] [place] [address] Bob Sánchez Emergency Contact [address] [place] [address] Bob Sánchez Statement Copy [address] [place] [address] Dana Huizar [employer] [address] [place] [address] Unavailable Dana Huizar Emergency Contact [address] [place] [address] Unavailable Dana Huizar A [facility] [address] [place] [address] Unavailable Summary Purpose Consult/Referral Allergies, Adverse Reactions, Alerts Type Description/Agent Code Date Allergy Active Date Allergy Inactivated Date of Last Reaction Adverse Reactions Severity Status Comments Source of Information [employer] f[employer] No Known Allergies Active Patient History Medications No Known Medications Conditions/Problems Problem/Diagnosis Awareness of Diagnosis Code (ICD-10) Onset Date (Start Date) Resolution Date (End Date) Status Source Comments MUSCLE WEAKNESS (GENERALIZED) M62.81 06/28/19 24 Active Fritz, Bhargav E 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 06/28/19 24 Bhargav Fernando WEAKNESS R53.1 06/28/19 24 Bhargav Fernando PRIMARY GENERALIZED (OSTEO)ARTHRITIS M15.0 08/23/19 22 Bhargav Fernando ACUTE EMBOLISM AND THROMBOSIS OF UNSPECIFIED DEEP VEINS OF RIGHT LOWER EXTREMITY I82.401 02/22/20 21 Bhargav Fernando ACUTE EMBOLISM AND THROMBOSIS OF UNSPECIFIED DEEP VEINS OF LEFT LOWER EXTREMITY I82.402 07/29/19 17 Bhargav Fernando DIARRHEA, UNSPECIFIED R19.7 07/29/19 17 Bhargav Fernando ADVERSE EFFECT OF PENICILLINS, SUBSEQUENT ENCOUNTER T36.0X5D 07/29/19 17 Bhargav Fernando ALLERGIC RHINITIS, UNSPECIFIED J30.9 07/29/19 17 Bhargav Fernando OTHER MALAISE R53.81 07/29/19 17 Bhargav Fernando ESSENTIAL (PRIMARY) HYPERTENSION I10 07/29/19 17 Bhargav Fernando PAIN IN RIGHT HIP M25.551 07/29/19 17 Bhargav Fernando PAIN IN LEFT HIP M25.552 07/29/19 17 Bhargav Fernando FPC (CURRENT) USE OF ANTICOAGULANTS Z79.01 07/29/19 17 Bhargav Fernando PROBLEMS RELATED TO LIVING ALONE Z60.2 07/29/19 17 Bhargav Fernando PERSONAL HISTORY OF PULMONARY EMBOLISM Z86.711 07/29/19 17 Bhargav Fernando HISTORY OF FALLING Z91.81 07/29/19 17 Bhargav Fernando GASTROINTESTINAL HEMORRHAGE, UNSPECIFIED K92.2 07/29/19 17 Bhargav Fernando ADVERSE EFFECT OF PENICILLINS, INITIAL ENCOUNTER T36.0X5A 07/29/19 17 Bhargav Fernando UNSPECIFIED ABNORMALITIES OF GAIT AND MOBILITY R26.9 07/08/19 17 Bhargav Fernando Procedures No Known Procedures
--- OUTSIDE RECORDS SUMMARY | 2024-04-24 16:37 | XMS_ITS | Encounter Summary ---
Author Organization [facility] Address [address] [place] [address] Care Team Providers Care Postal Sorting Officer Name Role Phone Alexander Calhoun MD Primary Care Provider [phone] Encounter Details Date Type Department Care Team (Late st Contact Info) Description 07/21/1999 Outpatient Historical [facility] Catracho Ball MD [address] [facility] [address] [place] [address] Social History Tobacco Use Types Packs/Day Years Used Date Smoking Tobacco: Never Assessed Comments Unknown Sex and Gender Information Value Date Recorded Sex Assigned at Not on file Legal Sex Female 4:11 AM ELECTRIC WIRER Gender Identity Not on file Sexual Orientation Not on file documented as of this encounter Plan of Treatment Upcoming Encounters Date Type Department Care Team (Late st Contact Info) Description 05/19/2024 1:00 PM CDT Office Visit [facility] Oncology and Hematology - Charanjit [address] [facility] [address] [place] [address] Mansoor Conde MD [address] [facility] [address] [place] [address] documented as of this encounter Visit Diagnoses Not on filedocumented in this encounter Care Teams Postal Sorting Officer Relationship Specialty Start Date End Date Alexander Calhoun MD [address] [place] [phone] PCP - General Internal Medicine 05/29/18 documented as of this encounter
--- OUTSIDE RECORDS SUMMARY | 2024-04-24 16:37 | XMS_ITS | Encounter Summary ---
Author Organization [facility] Address [address] [place] [address] Care Team Providers Care Floorworker Distributor Name Role Phone Alexander Calhoun MD Primary Care Provider Encounter Details Date Type Department Care Team (Late st Contact Info) Description 01/13/1999 Outpatient Historical [facility] Catracho Ball MD [address] [facility] [address] [place] [address] Social History Tobacco Use Types Packs/Day Years Used Date Smoking Tobacco: Never Assessed Comments Unknown Sex and Gender Information Value Date Recorded Sex Assigned at Not on file Legal Sex Female 4:11 AM SALES TRAINEE Gender Identity Not on file Sexual Orientation Not on file documented as of this encounter Plan of Treatment Upcoming Encounters Date Type Department Care Team (Late st Contact Info) Description 05/19/2024 1:00 PM CDT Office Visit [facility] Oncology and Hematology - Charanjit [address] [facility] [address] [place] [address] Mansoor Conde MD [address] [facility] [address] [place] [address] documented as of this encounter Visit Diagnoses Not on filedocumented in this encounter Care Teams Floorworker Distributor Relationship Specialty Start Date End Date Alexander Calhoun MD [address] [place] [id number] PCP - General Internal Medicine 05/29/18 documented as of this encounter
--- OUTSIDE RECORDS SUMMARY | 2024-04-24 16:37 | XMS_ITS | Encounter Summary ---
Author Organization [facility] Address [address] [place] [address] Care Team Providers Care Varnish Supervisor Name Role Phone Omar Patel MD Primary Care Provider [phone] Reason for Visit * Diagnostic Imaging (Routine) - Closed Specialty Diagnoses / Procedures Referred By Martha zurita Referred To Contact Procedures Breast Imaging Screening Outside Reference Yamilka Fernandez NP Phone: tel: fax: Referral ID Status Reason Start Date Expiration Date Visits Re quested Visits Authorized [id number] Closed 03/01/2022 03/31/2023 1 1 Encounter Details Date Type Department Care Team (Late st Contact Info) Description 11/29/2016 Hospital Encounter [facility] [address] [place] [id number] Social History Tobacco Use Types Packs/Day Years Used Date Smoking Tobacco: Never Smokeless Tobacco: Never Alcohol Use Standard Drinks/Week Comments No 0 (1 standard drink = 0.6 oz pur e alcohol) Comments No Sex and Gender Information Value Date Recorded Sex Assigned at Not on file Legal Sex Female 2:19 AM RN CLINICAL DOCUMENTATION Gender Identity Not on file Sexual Orientation [...] CDT) Impressions [facility] - 03/01/2022 10:35 AM RN CLINICAL DOCUMENTATION These images are for Reference purposes only and have not been reviewed by [facility] Radiology. There will be no report generated by a [facility] Radiologist. Narrative [facility] - 03/01/2022 10:35 AM RN CLINICAL DOCUMENTATION EXAMINATION: Images For Reference Purposes Only us Yamilka Fernandez RETAIL PRICING COORDINATOR IMG MAMMO PROCEDURES Fin al Result [facility] documented in this encounter Visit Diagnoses Not on filedocumented in this encounter Care Teams Varnish Supervisor Relationship Specialty Start Date End Date Omar Patel MD PCP - General 07/12/16 11/29/16 documented as of this encounter
--- OUTSIDE RECORDS SUMMARY | 2024-04-24 16:37 | XMS_ITS | Encounter Summary ---
Author Organization [facility] Address [address] [place] [address] Care Team Providers Care Ground Crew Chief Name Role Phone Alexander Calhoun MD Primary Care Provider [phone] Encounter Details Date Type Department Care Team (Late st Contact Info) Description 07/15/1998 Outpatient Historical [facility] Catracho Ball MD [address] [facility] [address] [place] [address] Social History Tobacco Use Types Packs/Day Years Used Date Smoking Tobacco: Never Assessed Comments Unknown Sex and Gender Information Value Date Recorded Sex Assigned at Not on file Legal Sex Female 4:11 AM HAND EXPANSION ENVELOPE MAKER Gender Identity Not on file Sexual Orientation Not on file documented as of this encounter Plan of Treatment Upcoming Encounters Date Type Department Care Team (Late st Contact Info) Description 05/19/2024 1:00 PM CDT Office Visit [facility] Oncology and Hematology - Charanjit [address] [facility] [address] [place] [address] Mansoor Conde MD [address] [facility] [address] [place] [address] documented as of this encounter Visit Diagnoses Not on filedocumented in this encounter Care Teams Ground Crew Chief Relationship Specialty Start Date End Date Alexander Calhoun MD [address] [place] [id number] PCP - General Internal Medicine 05/29/18 documented as of this encounter
--- OUTSIDE RECORDS SUMMARY | 2024-04-24 16:37 | XMS_ITS | Encounter Summary ---
Author Organization [facility] Address 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 SUPERVISOR Gender Identity Not on file Sexual Orientation Not on file documented as of this encounter Plan of Treatment Upcoming Encounters Date Type Department Care Team (Late st Contact Info) Description 05/19/2024 1:00 PM CDT Office Visit [facility] Oncology and Hematology - Charanjit [address] [facility] [address] [place] [address] Mansoor Conde MD [address] [facility] [address] [place] [address] documented as of this encounter Visit Diagnoses Not on filedocumented in this encounter Care Teams Public Works Technician Relationship Specialty Start Date End Date Alexander Calhoun MD [address] [place] [phone] PCP - General Internal Medicine 05/29/18 documented as of this encounter
--- OUTSIDE RECORDS SUMMARY | 2024-04-24 16:37 | XMS_ITS | Encounter Summary ---
Author Organization [facility] Address [address] [place] [address] Care Team Providers Care Printing Sales Representative Name Role Phone Alexander Calhoun MD Primary Care Provider [phone] Encounter Details Date Type Department Care Team (Late st Contact Info) Description 10/13/1999 Outpatient Historical [facility] Catracho Ball MD [address] [facility] [address] [place] [address] Social History Tobacco Use Types Packs/Day Years Used Date Smoking Tobacco: Never Assessed Comments Unknown Sex and Gender Information Value Date Recorded Sex Assigned at Not on file Legal Sex Female 4:11 AM PHYSICIAN RELATIONS SPECIALIST Gender Identity Not on file Sexual Orientation Not on file documented as of this encounter Plan of Treatment Upcoming Encounters Date Type Department Care Team (Late st Contact Info) Description 05/19/2024 1:00 PM CDT Office Visit [facility] Oncology and Hematology - Charanjit [address] [facility] 200 [place] [address] Mansoor Conde MD [address] [facility] [address] [place] [address] documented as of this encounter Visit Diagnoses Not on filedocumented in this encounter Care Teams Printing Sales Representative Relationship Specialty Start Date End Date Alexander Calhoun MD [address] [place] [phone] PCP - General Internal Medicine 05/29/18 documented as of this encounter
--- OUTSIDE RECORDS SUMMARY | 2024-04-24 16:37 | XMS_ITS | Encounter Summary ---
Author Organization [facility] Address [address] [place] [address] Care Team Providers Care Hvac R Instructor Name Role Phone Alexander Calhoun MD Primary Care Provider [phone] Encounter Details Date Type Department Care Team (Late st Contact Info) Description 08/25/1999 Outpatient Historical HIS MD Miguel HERNANDEZ Stephen, MD Social History Tobacco Use Types Packs/Day Years Used Date Smoking Tobacco: Never Assessed Comments Unknown Sex and Gender Information Value Date Recorded Sex Assigned at Not on file Legal Sex Female 4:11 AM PRECISION ASSEMBLER BENCH Gender Identity Not on file Sexual Orientation Not on file documented as of this encounter Plan of Treatment Upcoming Encounters Date Type Department Care Team (Late st Contact Info) Description 05/19/2024 1:00 PM CDT Office Visit [facility] Oncology and Hematology - Charanjit [address] [place] [address] [facility] [address] [place] [address] Mansoor Conde MD [address] [facility] [address] [place] [address] documented as of this encounter Visit Diagnoses Not on filedocumented in this encounter Care Teams Hvac R Instructor Relationship Specialty Start Date End Date Alexander Calhoun MD [address] [place] [address] PCP - General Internal Medicine 05/29/18 documented as of this encounter
--- OUTSIDE RECORDS SUMMARY | 2024-04-24 16:37 | XMS_ITS | Encounter Summary ---
Author Organization [facility] Address [address] [place] [address] Care Team Providers Care Law Reporter Name Role Phone Alexander Calhoun MD Primary Care Provider [phone] Encounter Details Date Type Department Care Team (Late st Contact Info) Description 11/10/1999 Outpatient Historical [facility] Catracho Ball MD [address] [facility] [address] [place] [address] Social History Tobacco Use Types Packs/Day Years Used Date Smoking Tobacco: Never Assessed Comments Unknown Sex and Gender Information Value Date Recorded Sex Assigned at Not on file Legal Sex Female 4:11 AM BUSINESS SUPPORT PROFESSIONAL Gender Identity Not on file Sexual Orientation Not on file documented as of this encounter Plan of Treatment Upcoming Encounters Date Type Department Care Team (Late st Contact Info) Description 05/19/2024 1:00 PM CDT Office Visit [facility] Oncology and Hematology - Charanjit [address] [facility] [address] [place] [address] Mansoor Conde MD [address] [facility] [address] [place] [address] documented as of this encounter Visit Diagnoses Not on filedocumented in this encounter Care Teams Law Reporter Relationship Specialty Start Date End Date Alexander Calhoun MD [address] [place] [phone] PCP - General Internal Medicine 05/29/18 documented as of this encounter
--- OUTSIDE RECORDS SUMMARY | 2024-04-24 16:37 | XMS_ITS | Encounter Summary ---
Author Organization [facility] Address [address] [place] [address] Care Team Providers Care Social Service Coordinator Name Role Phone Alexander Calhoun MD Primary Care Provider [phone] Encounter Details Date Type Department Care Team (Late st Contact Info) Description 11/01/1999 Outpatient Historical HIS MD Miguel HERNANDEZ Stephen, MD Social History Tobacco Use Types Packs/Day Years Used Date Smoking Tobacco: Never Assessed Comments Unknown Sex and Gender Information Value Date Recorded Sex Assigned at Not on file Legal Sex Female 4:11 AM BENCH MANAGER Gender Identity Not on file Sexual Orientation Not on file documented as of this encounter Plan of Treatment Upcoming Encounters Date Type Department Care Team (Late st Contact Info) Description 05/19/2024 1:00 PM CDT Office Visit [facility] Oncology and Hematology - Charanjit [address] [place] [address] [facility] [address] [place] [address] Mansoor Conde MD [address] [facility] [address] [place] [address] documented as of this encounter Visit Diagnoses Not on filedocumented in this encounter Care Teams Social Service Coordinator Relationship Specialty Start Date End Date Alexander Calhoun MD [address] [place] [address] PCP - General Internal Medicine 05/29/18 documented as of this encounter
--- OUTSIDE RECORDS SUMMARY | 2024-04-24 16:37 | XMS_ITS | Encounter Summary ---
Author Organization [facility] Address [address] [place] [address] Care Team Providers Care Tire Cord Weaver Name Role Phone Alexander Calhoun MD Primary Care Provider [phone] Encounter Details Date Type Department Care Team (Late st Contact Info) Description 10/13/1998 Outpatient Historical [facility] Catracho Ball MD [address] [facility] [address] [place] [address] Social History Tobacco Use Types Packs/Day Years Used Date Smoking Tobacco: Never Assessed Comments Unknown Sex and Gender Information Value Date Recorded Sex Assigned at Not on file Legal Sex Female 4: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 MEDICAL LABORATORY TECHNOLOGIST Gender Identity Not on file Sexual Orientation Not on file documented as of this encounter Plan of Treatment Upcoming Encounters Date Type Department Care Team (Late st Contact Info) Description 05/19/2024 1:00 PM CDT Office Visit [facility] Oncology and Hematology - Charanjit [address] [facility] [address] [place] [address] Mansoor Conde MD [address] [facility] [address] [place] [address] documented as of this encounter Visit Diagnoses Not on filedocumented in this encounter Care Teams Tire Cord Weaver Relationship Specialty Start Date End Date Alexander Calhoun MD [address] [place] [address] PCP - General Internal Medicine 05/29/18 documented as of this encounter
--- OUTSIDE RECORDS SUMMARY | 2024-04-24 16:37 | XMS_ITS | Encounter Summary ---
Author Organization [facility] Address [address] [facility] [address] [place] [address] Care Team Providers Care Regulatory Compliance Officer Name Role Phone Omar Patel MD Primary Care Provider [phone] Bhargav Fritz MD Primary Care Provider Alexander Calhoun MD Primary Care Provider [phone] Encounter Details Date Type Department Care Team (Late st Contact Info) Description 06/27/2016 Orders Only [facility] ProviderMelany MD [address] [place] [address] Social History Tobacco Use Types Packs/Day Years Used Date Smoking Tobacco: Never Assessed Comments Unknown Sex and Gender Information Value Date Recorded Sex Assigned at Not on file Legal Sex Female 2:19 AM ENTRY LEVEL BUYER Gender Identity Not on file Sexual Orientation [...] on filedocumented in this encounter Care Teams Regulatory Compliance Officer Relationship Specialty Start Date End Date Omar Patel MD PCP - General 07/12/16 11/29/16 Bhargav Fritz MD [address] [facility] [address] [place] [address] PCP - General Family Medicine 11/30/16 07/14/18 Alexander Calhoun MD [address] [place] [address] PCP - General Internal Medicine 07/15/18 documented as of this encounter
--- OUTSIDE RECORDS SUMMARY | 2024-04-24 16:38 | XMS_ITS | Encounter Summary ---
Author Organization [facility] Address [address] [place] [address] Care Team Providers Care Pit Shoveler Name Role Phone Alexander Calhoun MD Primary Care Provider [phone] Encounter Details Date Type Department Care Team (Latest Contact Info) Description 05/15/2022 Scan HEALTH INFO [facility] Scanned, [facility] Social History Tobacco Use Types Packs/Day Years [...] Date Recorded Patient Health Questionnaire-2 Score 0 04/24/2022 Comments No Sex and Gender Information Value Date Recorded Sex Assigned at Not on file Legal Sex Female 4:58 PM CDT Gender Identity Not on file Sexual Orientation Not on file COVID-19 Exposure Response Date Recorded In the last 10 days, have yo u been in contact with someone who was confirmed or suspected to have Coronavirus/COVID-19? No / Unsure 04/24/2022 11:16 AM PUBLIC ADMINISTRATION PROFESSOR documented as of this encounter Plan of Treatment Upcoming Encounters Date Type Department Care Team ( Contact Info) Description 05/07/2024 12:00 PM PUBLIC ADMINISTRATION PROFESSOR Office Visit [facility] Family & Internal Medicine [address] [address] Alexander Calhoun MD [address] [place] [address] documented as of this encounter Visit Diagnoses Not on filedocumented in this encounter Additional Health Concerns Assessment Noted Time PHQ-9 Depression Total Score: 6 04/24/19 23 11:42 AM PUBLIC ADMINISTRATION PROFESSOR documented as of this encounter Care Teams Pit Shoveler Relationship Specialty Start Date End Date Alexander Calhoun MD [address] [place] [address] PCP - General INTERNAL MEDICINE 04/22/18 documented as of this encounter
--- OUTSIDE RECORDS SUMMARY | 2024-04-24 16:38 | XMS_ITS | Encounter Summary ---
Author Organization [facility] Address [address] [place] [address] Care Team Providers Care Wine Cellar Stock Clerk Name Role Phone Alexander Calhoun MD Primary Care Provider [phone] Encounter Details Date Type Department Care Team (Late st Contact Info) Description 08/28/2000 Outpatient Historical HIS MD Miguel HERNANDEZ Stephen, MD Social History Tobacco Use Types Packs/Day Years Used Date Smoking Tobacco: Never Assessed Comments Unknown Sex and Gender Information Value Date Recorded Sex Assigned at Not on file Legal Sex Female 4:11 AM BUSINESS OBJECTS REPORT DEVELOPER Gender Identity Not on file Sexual Orientation Not on file documented as of this encounter Plan of Treatment Upcoming Encounters Date Type Department Care Team (Late st Contact Info) Description 05/19/2024 1:00 PM CDT Office Visit [facility] Oncology and Hematology - Charanjit [address] [place] [address] [facility] [address] [place] [address] Mansoor Conde MD [address] [facility] [address] [place] [address] documented as of this encounter Visit Diagnoses Not on filedocumented in this encounter Care Teams Wine Cellar Stock Clerk Relationship Specialty Start Date End Date Alexander Calhoun MD [address] [place] [address] PCP - General Internal Medicine 05/29/18 documented as of this encounter
--- OUTSIDE RECORDS SUMMARY | 2024-04-24 16:38 | XMS_ITS | Encounter Summary ---
Author Organization [facility] Address [address] [place] [address] Care Team Providers Care Child Development Assistant Name Role Phone Alexander Calhoun MD Primary Care Provider [phone] Reason for Visit * Reason Onset Date Comments Advice 04/23/2024 Encounter Details Date Type Department Care Team (Late st Contact Info) Description 04/23/2024 Telephone [facility] Family & Internal Medicine [address] [id number] [place] [address] Alexander Calhoun MD [address] [place] [address] Advice Social History Tobacco Use Types Packs/Day Years Used Date Smoking Tobacco: Never Smokeless Tobacco: Never Comments:Non smoker Alcohol Use Standard Drinks/Week Comments [...] as of this encounter Progress Notes * Brenda Michelle RN - 04/24/2024 3:57 PM CST Called and spoke with the patient. She is having ABD pain and pressure. UATE CIVIL ENGINEER * Edith Castañeda - 04/24/2024 2:04 PM CST Patient called back to report no success after second dose. Patient is a little upset and wonders what else she can do. Please call back as soon as possible. UATE CIVIL ENGINEER * Julianna Humphrey MA - 04/23/2024 3:49 PM CST Patient informed and v/u of recommendation and instructions. She will call back if no BM after 2nd dose. UATE CIVIL ENGINEER * Alexander Calhoun MD - 04/23/2024 12:15 PM CST Magnesium citrate 1/2 bottle today, if no BM by morning she can take the other half. UATE CIVIL ENGINEER * Samanta Garcia - 04/23/2024 9:11 AM CST Pt called in having constipation pt states taken miralax, Docsuate sodium pt has been taking one per day but is unsure on further directions. Please Advise. UATE CIVIL ENGINEER documented in this encounter Plan of Treatment Upcoming Encounters Date Type Department Care Team (Late st Contact Info) Description 05/07/2024 12:00 PM GRADUATE CIVIL ENGINEER Office Visit [facility] Family & Internal Medicine - [place] [address] [place] [address] Alexander Calhoun MD [facility] [address] [place], [place] [phone] documented as of this encounter Visit Diagnoses Not on filedocumented in this encounter Additional Health Concerns Assessment Noted Time PHQ-9 Depression Total Score: 10 024 1:00 PM CDT documented as of this encounter Care Teams Child Development Assistant Relationship Specialty Start Date End Date Alexander Calhoun MD [address] [place] [address] PCP - General INTERNAL MEDICINE 04/22/18 documented as of this encounter
--- OUTSIDE RECORDS SUMMARY | 2024-04-24 16:38 | XMS_ITS | Data Portability ---
Author Organization [place] - [facility], Main Office Address [address] [place] [address] Care Team Providers Care Divisional Merchandising Manager Name Role Phone RAUL CHAMPION Primary Care Provider [phone] RAUL CHAMPION Referring Provider Assessment Encounter Date [...] with a 4 wheeled walker. She has upjf-jy-evltteir effusions both knees. Moderate pain with patellofemoral [...] both trochanteric bursae the palpation. She has cqru-mk-bskqmhzw weakness with abduction testing in lateral position [...] procedure, administere d by provider 2023 024 [email or web address] In-Office Order, Internal Use Only DO Not Attach Compendium DO Not Attach Compendium, Do Not Delete/merge, [id number] 11:47:28 injection/a spiration joint/bursa (PROC) - in office procedure, administere d by provider 2023 024 [email or web address] In-Office Order, Internal Use Only DO Not Attach Compendium DO Not Attach Compendium, Do Not Delete/merge, [id number] 4 14:37:54 injection/a spiration joint/bursa (PROC) 2022 023 [email or web address] In-Office Order, Internal Use Only DO Not Attach Compendium DO Not Attach Compendium, Do Not Delete/merge, [id number] 3 14:50:17 injection/a spiration joint/bursa (PROC) - in office procedure, administere d by provider 2022 023 [email or web address] In-Office Order, Internal Use Only DO Not Attach Compendium DO Not Attach Compendium, Do Not Delete/merge, [id number] 3 13:58:34 injection/a spiration joint/bursa (PROC) - in office procedure, administere d by provider 2022 023 [email or web address] In-Office Order, Internal Use Only DO Not Attach Compendium DO Not Attach Compendium, Do Not Delete/merge, [id number] 3 13:54:13 Surgeries None recorded. Imaging XR, knee 2022 023 [email or web address] [facility] [place], [facility] [address], [place], [address], 3 15:08:03 Medication Orders Kenalog 10 mg/mL suspension for injection [address], [address] [place] [address], [address], 4 12:18:26 bupivacaine HCl 0.5 % (5 mg/mL) injection solution [address], [address] [place] [address], [address], 4 12:18:26 Kenalog 10 mg/mL suspension for injection [address], [address] [place] [address], [address], 4 15:21:37 ropivacaine (PF) 5 mg/mL (0.5 %) injection solution [address], [address], 4 15:21:37 bupivacaine HCl 0.5 % (5 mg/mL) injection solution [address] [place] [address], [address], 3 16:06:39 Kenalog 10 mg/mL suspension for injection [address] [place] [address], [address], 3 16:06:39 Kenalog 10 mg/mL suspension for injection [address] [place] [address], [address] [place] [address], [address], 3 16:17:10 ropivacaine (PF) 5 mg/mL (0.5 %) injection solution [address] [place] [address], [address], 3 16:17:10 Kenalog 10 mg/mL suspension for injection [address] [place] [address], [address] [place] [address], [address], 3 14:43:39 ropivacaine (PF) 5 mg/mL (0.5 %) injection solution [address] [place] [address], [address], 3 14:43:39 Patient TargetsNo targets recorded. Patient InstructionsNo instructions recorded. Reason for Referral None Reported. Results Created Date Observation Date Name Description Value Unit Range Abnormal Flag Note LastModifiedBy Organization Detail LastModifiedTime 11/16/19 23 XR, knee No observ ation record ed. [facility] [place] [place] [address], [place], [address], 11/15/2022 14:35:12 Result Notes None recorded. Problems Name Problem SNOMED Code Status Onset Date Resolution Date Notes Provider Name and Address Organization Details Recorded Time Osteoarthr itis of bilateral hip joints 8257629224708 05 Active 2021 Not Available [facility] 3 16:25:52 Bilateral hip joint pain 7155810824801 9100 Active 2021 Not Available [facility] 3 16:25:53 Localized, primary osteoarthr itis of the pelvic region and thigh 363206389 Active Not Available [facility] 3 16:25:53 Osteoarthr itis of knee 316003699 Active 2021 Not Available [facility] 3 16:25:53 Enthesopat hy of hip region 44920183 Active Not Available [facility] 3 16:25:53 Osteoarthr itis 426982016 Active Not Available [facility] 3 16:25:53 Postmenopa usal bleeding 89002436 Active Not Available [facility] 3 16:25:53 Bilateral osteoarthr itis of knees 8799262765166 07 Active 2022 GISELLA Rosado, [place] - [facility] 3 13:47:28 Trochanter ic bursitis of right hip 7697462134593 00 Active 2023 GISELLA [place] null, [place] [facility] [employer] 4 14:36:32 Trochanter ic bursitis of left hip 2486808883758 03 Active 2023 GISELLA [place] null[place] [facility] 4 14:36:39 Problem Notes None recorded. Procedures Surgical History None recorded. Imaging Results Imaging Date Name Status LastModified by Organiz ation Details LastModified Time 11/15/2022 XR, knee completed [facility] [address], [place], [address], 11/15/2022 14:35:12 Procedure Notes None recorded. Medical [...] suspension for injection in office 2023 active [facility]: 0003- 0494- 20 Not Available Not Available [...] Available Not Available No t Available Fluvirin 7452-3663 45 mcg (15 mcg x 3)/0.5 mL [...] Available Not Available Not Available Fluzone High-Dose 6278-1304 (PF) 180 mcg/0.5 mL intramuscul ar syringe 05/11 completed Not Available Not Available Not Available Fluzone High-Dose 7450-3806 (PF) 180 mcg/0.5 mL intramuscul ar syringe [...] Updated DateTime 11/15/2022 157.48 cm GISELLA Rosado [facility] 11/15/2022 13:52:48 Date Recorded Body height Provider Name an d Address Organization Details Last Updated DateTime 12/13/2022 157.48 cm GISELLA Rosado [facility] [employer] [facility] 12/13/2022 13:57:07 Date Recorded Body height Body mass index (BMI) Body weight Provider Name and Address Organization Details Last Updated DateTime 02/14/2023 157.48 cm 34.8 kg/m2 59887.55 g Pilar De La Cruz [facility] 02/14/2023 14:48:38 Date Recorded Body height Provider Name an d Address Organization Details Last Updated DateTime 03/21/2023 157.48 cm Meryl White [facility] 03/21/2023 14:35:25 Date Recorded Body height Provider Name an d Address Organization Details Last Updated DateTime 06/27/2023 157.48 cm Meryl White [facility] 06/27/2023 11:44:58 Social History Question Answer Notes LastModified by Organizat ion Details LastModified Time Tobacco Smoking Status Never Smoker Not Available [facility] 05/10/2022 16:25:15 What Is Your Level Of Alcohol Consumption? None [id number] Information not available 05/10/2022 Sex: Unknown Functional Status None recorded. Mental Status None recorded. Family History Relationship Description Onset Age of this Age Resolved Age Notes LastModified by Organization Details LastModified Time Mother Complication of anesthesia [id number] Not available 05/10/2022 16:25:18 Mother Family history of malignant neoplasm [id number] Not available 05/10/2022 16:25:18 Mother Hypertensive disorder [id number] Not available 05/10/2022 16:25:18 Father Heart disease [id number] Not available 05/10/2022 16:25:18 Medical History Condition Response BLINDNESS N KIDNEY STONES N MRSA N CARPAL TUNNEL SYNDROME N LUNG DISEASE/DISORDER N HISTORY OF DRUG ABUSE N RADIATION / CHEMOTHERAPY N COPD N SPORTS INJURY N ANKLE PAIN N BLOOD DISEASES N SCHIZOPHRENIA N SHINGLES N BOWEL PROBLEMS N SHOULDER PAIN N DEPRESSION (INCLUDING POST ) N STROKE/TIA N KNEE PAIN N ULCERS N BENIGN PROSTATIC HYPERPLASIA N OBESITY N GERD/NAUSEA N ANEURYSM N URINARY/BLADDER/KIDNEY PROBLEMS Y CORONARY ARTERY DISEASE (CAD) N ADDICTION CONCERNS N USE OF BLOOD THINNERS N SKIN PROBLEMS N EMPHYSEMA N MUSCLE,JOINT OR BONE PROBLEMS N DVT N STOMACH ULCERS N BLOOD CLOTS Y USE OF NSAIDS N CONCUSSION OR SPINAL TRAUMA N NEUROPATHY N AIDS/HIV N FRACTURES N ELBOW PAIN N HYPERTENSION Y TOURETTE'S N ANXIETY DISORDER N Metal allergy N BLOOD TRANSFUSION N ANEMIA/BLOOD DISORDER N BIPOLAR DISORDER N BRONCHITIS N OSTEOARTHRITIS N TUBERCULOSIS N FOOT PROBLEM N HEART VALVE DISORDERS N ALLERGIES/HAYFEVER N SOFT TISSUE INJURY N INFECTIOUS DISEASE N HEART ARRHYTHMIA N INSOMNIA N RHEUMATOID ARTHRITIS N HIGH CHOLESTEROL / HYPERLIPIDEMIA N EDEMA N CHRONIC PAIN SYNDROME N CAROTID BLOCKAGE N BACK / NECK PROBLEMS N HAVE YOU BEEN HOSPITALIZED OR SEEN IN [facility] ER IN THE PAST YEAR ? N BURSITIS N HERNIATED DISC N DIALYSIS N FIBROMYALGIA N OSTEOPOROSIS N ARTHRITIS N NO SIGNIFICANT PAST MEDICAL HISTORY N PERIPHERAL NEUROPATHY N DIABETES, TYPE N HEARTBURN / REFLUX N HEPATITIS / LIVER DISEASE N GOUT N SLEEP DISORDER N ALZHEIMER'S DISEASE N HERPES N SEIZURES/EPILEPSY N HEADACHES/MIGRAINES N VASCULAR DISEASE N HIP PAIN N Blood Disorder N DIZZINESS N HEAD TRAUMA OR INJURY N HEART DISEASE/HEART PROBLEMS N MULTIPLE SCLEROSIS N CARDIAC ARRHYTHMIA N CANCER: SPECIFY N ANESTHESIA COMPLICATIONS N ATRIAL FIBRILLATION N AUTOIMMUNE DISEASE N Gynecological HistoryNo gynecological history recorded. Obstetrics History GPAL:G 0 P 0 0 0 0 Past Encounters Encounter ID Performer Location Encounter Start Date Encounter Closed Date Diagnosis/Indication Diagnosis SNOMED-CT Code Diagnosis ICD10 Code Diagnosis Note [id number] [facility] [place] [address] [place] [address] 08/22/2021 00:00:00 09/25/2021 15:41:46 [id number] [facility] [place] [address] [place], [place] [address] 10/03/2021 00:00:00 10/03/2021 14:53:29 [id number] [facility] [place] [address] [place], [place] [address] 11/16/2021 00:00:00 11/16/2021 14:23:47 [id number] [facility] [place] [address] [place] [address] 02/01/2022 00:00:00 02/01/2022 16:39:58 [id number] [facility] [place] [address] [place] [address] 02/15/2022 00:00:00 02/15/2022 14:31:53 [id number] KATHY Goldberg [facility] [place] [address] [place] [address] 05/15/2022 13:40:34 05/15/2022 13:58:58 Bilateral osteoarthritis of knees 3490659559 37543 M17.0 [id number] Mckay Montero PA [facility] [place] [address] [place] [address] 05/29/2022 14:03:51 05/29/2022 14:45:02 Osteoarthritis 772975853 M16.0 [id number] Mckay Montero PA [facility] [place] [address] [place] [address] 08/14/2022 13:06:11 08/14/2022 14:45:12 Bilateral osteoarthritis of knees 2941348471 44312 M17.0 [id number] KATHY Goldberg [facility] [place] [address] [place] [address] 09/08/2022 13:54:28 09/08/2022 15:26:25 Bilateral hip joint pain 9797369523 3382905 M25.551 M25.468 [id number] KATHY Goldberg [facility] [place] [address] [place] [address] 11/15/2022 13:50:57 11/15/2022 15:08:03 Bilateral osteoarthritis of knees 3155380386 71834 M17.0 [id number] KATHY Goldberg [facility] [place] [address] [place] [address] 12/13/2022 13:55:46 12/13/2022 15:16:24 Bilateral hip joint pain 5733033674 5807046 M25.551 M25.432 [id number] KATHY Wheeler [facility] [place] [address] [place] [address] 02/14/2023 14:41:50 02/14/2023 15:31:54 Bilateral osteoarthritis of knees 1146181025 70678 M17.0 [id number] Mckay Montero PA [facility] [place] [address] [place] [address] 03/21/2023 14:34:10 03/21/2023 15:17:48 Trochanteric bursitis of right hip 0636800445 03697 M70.61 Trochanter ic bursitis of left hip 0713038821 74813 M70.62 [id number] KATHY Goldberg [facility] [place] [address] [place] [address] 06/27/2023 11:43:41 06/27/2023 12:19:08 Trochanteric bursitis of right hip 9294708824 69206 M70.61 Trochanter ic bursitis of left hip 9027058289 15739 M70.62 Health Concerns Section Related Observation LastModified by Organization Detai ls LastModified Time None Recorded Concern Status LastModified by Organization Details LastModified Time None Recorded Advance Directives Directive None Recorded Payers Encounter Date Sequence Insurance Name Policy Number Policy Orellana Covered Member ID Orellana Member ID Guarantor Name 11/15/2022 1 [employer] (MEDICARE REPLACEMENT PPO) [id number] Dee Dee S Gilchrist [id number] Dee Dee S Princess 12/13/2022 1 [employer] (MEDICARE REPLACEMENT PPO) [id number] Dee Dee S Gilchrist [id number] Dee Dee S Princess 02/14/2023 1 [employer] (MEDICARE REPLACEMENT PPO) [id number] Dee Dee S Gilchrist [id number] Dee Dee S Princess 03/21/2023 1 [employer] (MEDICARE REPLACEMENT PPO) [id number] Dee Dee S Princess [id number] Dee Dee S Gilchrist 06/27/2023 1 [employer] (MEDICARE REPLACEMENT PPO) [id number] Dee Dee S Gilchrist [id number] Dee Dee S Princess Notes Date Note Type Note Provider Name and Address Organization Details Recorded Time 02/14/2023 text/html Patient returns complaining of bilateral knee pain. 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 She has aching pain has [...] for total knee arthroplasty. KATHY Wheeler [address] [facility] [address], [place], [address], [place] [employer] [facility] 02/14/2023 14:59:29 OBGyn Episode No OBEpisode recorded.
--- OUTSIDE RECORDS SUMMARY | 2024-04-24 16:38 | XMS_ITS | Encounter Summary ---
Author Organization [facility] Address [address] [place] [address] [address] Team [address] Care [address] Monkey Name Role Phone Alexander Calhoun MD Primary Care Provider [phone] Encounter Details Date Type Department Care Team (Late st Contact Info) Description 03/07/2000 Outpatient Historical [facility] PRASAD & Kg Apodaca MD Social History Tobacco Use Types Packs/Day Years Used Date Smoking Tobacco: Never Assessed Comments Unknown Sex and Gender Information Value Date Recorded Sex Assigned at Not on file Legal Sex Female 4:11 AM LAWYER REAL ESTATE Gender Identity Not on file Sexual Orientation Not on file documented as of this encounter Plan of Treatment Upcoming Encounters Date Type Department Care Team (Late st Contact Info) Description 05/19/2024 1:00 PM CDT Office Visit [facility] Oncology and Hematology - [place] [address] [place] [address] [facility] [address] [place] [address] Mansoor Conde MD [address] [facility] [address] [place] [address] documented as of this encounter Visit Diagnoses Not on filedocumented in this encounter Care Teams Road Monkey Relationship Specialty Start Date End Date Alexander Calhoun MD [address] [place] [address] PCP - General Internal Medicine 05/29/18 documented as of this encounter
--- OUTSIDE RECORDS SUMMARY | 2024-04-24 16:38 | XMS_ITS | Clinical Summary ---
Author Organization [facility] Address [address] [place] [address] Care Team Providers Care Balance Wheel Motion Inspector Name Role Phone Alexander Calhoun MD Primary Care Provider [phone] Allergies No known active allergies Medications acetaminophen [...] Noted Date Diagnosed Date Pulmonary hypertension, unspecified ([facility]) 08/08/2023 Generalized muscle weakness 09/14/2021 Other primary thrombophilia ([facility]) Diffusion capacity of lung (dl), decreased 08/22 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 Chronic cough 07/15/2018 Chronic obstructive pulmonary disease ([facility]) 07/15/2018 History of pulmonary embolism 07/15/2018 Non-seasonal allergic rhinitis due to pollen 08/2018 Sleep disorder 07/15/2018 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 ([facility]) 07/15/2018 Erythrocytosis 10/01/2017 Obesity due to excess calories 01/02/2017 Pulmonary embolism ([facility]) 07/09/2016 Bilateral hip pain 01/24/2016 Unsteady [...] Encounters Date Type Department Care Team Description 04/23/2024 Telephone [facility] & Internal [address] [address] Alexander Calhoun MD Advice 03/17/2024 Scan HEALTH INFO SRVCS Scanned, [facility] 02/13/2024 Scan [facility] HEALTH INFO SRVCS Scanned, [facility] Vascular Lab Study (SCAN) 02/04/2024 1:20 PM DERMATOLOGY TEACHER Office Visit [facility] Family Internal [address] [address] Alexander Calhoun MD Follow Up; Hypertension; Hyperlipidemia; [...] 01/15/2021,05/15/2020,04/16/2020 Pneumococcal (Pneumovax 23) 01/14/2015 Zoster (Zostavax) 37557 Unt/0.65Ml 01/08/2015 Family History Medical History Relation [...] Comments Blood Pressure 130/60 02/04/2024 1:40 PM DERMATOLOGY TEACHER Pulse 84 02/04/2024 1:40 PM DERMATOLOGY TEACHER Temperature 36.8 C (98.2 F) 02/04/2024 1:40 PM DERMATOLOGY TEACHER Respiratory Rate 18 02/04/2024 1:40 PM DERMATOLOGY TEACHER Oxygen Saturation 94% 02/04/2024 1:40 PM DERMATOLOGY TEACHER Inhaled Oxygen Concentration - - Weight 87.1 kg (192 lb) 02/04/2024 1:40 PM DERMATOLOGY TEACHER Height 162.6 cm (5' 4 ) 02/04/2024 1:40 PM DERMATOLOGY TEACHER Body Mass Index 32.96 02/04/2024 1:40 PM DERMATOLOGY TEACHER Plan of Treatment Upcoming Encounters Date Type Department Care Team (Late st Contact Info) Description 05/07/2024 12:00 PM DERMATOLOGY TEACHER Office Visit [facility] Family & Internal Medicine - [place] [address] [place] [address] Alexander Calhoun MD [address] [place] [address] Health Maintenance Due Date Last Done Comments DTaP, Tdap and Td Vaccines (1 - Tdap) 12/28/1954 Annual Medicare Wellness Visit 2001 Zoster Vaccines (2 of 3) 03/05/2015 01/08/2015 Pneumococcal Vaccine: 65+ Years (2 of 2 - PCV) 01/15/2016 01/14/2015 PHQ-2 (Physician [place]) 03/12/2024 08/08/2023 Influenza Adult (#1) 2024 11/14/2019, 12/22/2018, [...] Last 3 Months Insurance [employer] Care Teams Balance Wheel Motion Inspector Relationship Specialty Start Date End Date Alexander Calhoun MD [address] [place] [address] PCP - General INTERNAL MEDICINE 04/22/18
--- OUTSIDE RECORDS SUMMARY | 2024-04-24 16:38 | XMS_ITS | Clinical Summary ---
Author Organization [facility] [address] Address [address] [place] [address] Care Team Providers Care Delinquent Tax Collection Assistant Name Role Phone Alexander Calhoun MD Primary Care Provider Allergies Active Allergy Reactions Criticality Noted Date [...] Department Care Team Description 03/14/2024 1:30 PM VOCATIONAL TEACHER - 03/14/2024 11:59 PM VOCATIONAL TEACHER Hospital Encounter [facility] - Breast Imaging [address] [facility] [address] [place] [address] Abnormal mammogram; Mass of right breast, unspecified [...] on file Legal Sex Female 2:19 AM VOCATIONAL TEACHER Gender Identity Not on file Sexual Orientation [...] history exists Medical Devices Implanted Type Area Sandstone Inspector Repairer Device Identifier Shelf Expiration Date Model / Serial / Lot Bard Peripheral Vascular Ultraclip Bard 17ga 10cm 2 Trigger Permanent Ultrasound [id number] - [id number] Implanted:Qty: 1 on 05/11/2022 at [facility] [employer] [id number] / / Procedures Procedure Name Priority Date/Time Associated Diagnosis Comments DIAGNOSTIC MAMMOGRAM BILATERAL W JEREMY Schedule Routine, Read Routine (OP Routine) 03/14/2024 3:04 PM VOCATIONAL TEACHER Abnormal mammogram Mass of right breast, unspecified quadrant from Last 3 Months Results * Diagnostic Mammogram Bilateral W Jeremy (03/14/2024 3:04 PM VOCATIONAL TEACHER) Anatomical Region Laterality Modality Breast Bilateral Mammography 03/14/2024 3:09 PM VOCATIONAL TEACHER Impressions 03/14/2024 3:09 PM VOCATIONAL TEACHER 1. Left breast calcifications are benign. 2. No evidence of malignancy in either breast. OVERALL FINAL ASSESSMENT: BI-RADS Category 2: Benign. RECOMMENDATION: Continued clinical follow-up is recommended. Dr. Gutierrez discussed the above findings and recommendations with the patient. Electronically signed by: Lula Gutierrez M.D. Narrative 03/14/2024 3:09 PM VOCATIONAL TEACHER EXAMINATION: BILATERAL DIGITAL DIAGNOSTIC MAMMOGRAM INCLUDING CAD [...] MEDICARE T MEDICARE AET MEDICARE Care Teams Delinquent Tax Collection Assistant Relationship Specialty Start Date End Date Alexander Calhoun MD [address] [place] [address] PCP - General Internal Medicine 07/15/18
--- OUTSIDE RECORDS SUMMARY | 2024-04-24 16:38 | XMS_ITS | Encounter Summary ---
Author Organization [facility] Address [address] [place] [address] Care Team Providers Care Complaint Supervisor Name Role Phone Alexander Calhoun MD Primary Care Provider [phone] Encounter Details Date Type Department Care Team (Late st Contact Info) Description 08/14/2000 Outpatient Historical HIS MD Miguel HERNANDEZ Stephen, MD Social History Tobacco Use Types Packs/Day Years Used Date Smoking Tobacco: Never Assessed Comments Unknown Sex and Gender Information Value Date Recorded Sex Assigned at Not on file Legal Sex Female 4:11 AM CREDIT RATING CHECKER Gender Identity Not on file Sexual Orientation Not on file documented as of this encounter Plan of Treatment Upcoming Encounters Date Type Department Care Team (Late st Contact Info) Description 05/19/2024 1:00 PM CDT Office Visit [facility] Oncology and Hematology - Charanjit [address] [place] [address] [facility] [address] [place] [address] Mansoor Conde MD [address] [facility] [address] [place] [address] documented as of this encounter Visit Diagnoses Not on filedocumented in this encounter Care Teams Complaint Supervisor Relationship Specialty Start Date End Date Alexander Calhoun MD [address] [place] [address] PCP - General Internal Medicine 05/29/18 documented as of this encounter
--- OUTSIDE RECORDS SUMMARY | 2024-04-24 16:38 | XMS_ITS | Referral Summary ---
Author Organization [facility] [address] Address [address] [place] [address] Care Team Providers Care Certified Court Interpreter Name Role Phone Alexander Calhoun MD Primary Care Provider [phone] Encounters Date Type Department Care Team Description 03/14/2024 1:30 PM UNDER SEAL OPERATOR - 03/14/2024 11:59 PM UNDER SEAL OPERATOR Hospital Encounter [facility] - Breast Imaging [address] [facility] [address] [place] [address] Abnormal mammogram; Mass of right breast, unspecified [...] on file Legal Sex Female 2:19 AM UNDER SEAL OPERATOR Gender Identity Not on file Sexual [...] on file Medical Devices Implanted Type Area Plastics Fitter Device Identifier Shelf Expiration Date Model / Serial / Lot Bard Peripheral Vascular Ultraclip Bard 17ga 10cm 2 Trigger Permanent Ultrasound [id number] - [id number] Implanted:Qty: 1 on 05/11/2022 at [facility] [employer] Peripheral Vascular [id number] / / Procedures Procedure Name Priority Date/Time Associated Diagnosis Comments DIAGNOSTIC MAMMOGRAM BILATERAL W JEREMY Schedule Routine, Read Routine (OP Routine) 03/14/2024 3:04 PM UNDER SEAL OPERATOR Abnormal mammogram Mass of right breast, unspecified quadrant from Last 3 Months Results * Diagnostic Mammogram Bilateral W Jeremy (03/14/2024 3:04 PM UNDER SEAL OPERATOR) Anatomical Region Laterality Modality Breast Bilateral Mammography 03/14/2024 3:09 PM UNDER SEAL OPERATOR Impressions 03/14/2024 3:09 PM UNDER SEAL OPERATOR 1. Left breast calcifications are benign. 2. No evidence of malignancy in either breast. OVERALL FINAL ASSESSMENT: BI-RADS Category 2: Benign. RECOMMENDATION: Continued clinical follow-up is recommended. Dr. Gutierrez discussed the above findings and recommendations with the patient. Electronically signed by: Lula Gutierrez M.D. Narrative 03/14/2024 3:09 PM UNDER SEAL OPERATOR EXAMINATION: BILATERAL DIGITAL DIAGNOSTIC MAMMOGRAM INCLUDING CAD [...] signed by: Lula Gutierrez M.D. Lexie Andrew FILM WAXER IMG MAMMO PROCEDURES Final Result from Last 3 Months Insurance MEDICARE SOLUTIONS [facility] Address: [address] [place] [address] [facility] MEDICARE [facility] MEDIC[facility] Care Teams Certified Court Interpreter Relationship Specialty Start Date End Date Alexander Calhoun MD [address] [place], [place] [id number] PCP - General Internal Medicine 07/15/18
--- OUTSIDE RECORDS SUMMARY | 2024-04-24 16:38 | XMS_ITS | Encounter Summary ---
Author Organization [facility] Address [address] [place] [address] Care Team Providers Care Carbon Plant Grinder Name Role Phone Alexander Calhoun MD Primary Care Provider [phone] Encounter Details Date Type Department Care Team (Late st Contact Info) Description 02/07/2000 Outpatient Historical HIS MD Miguel HERNANDEZ Stephen, MD Social History Tobacco Use Types Packs/Day Years Used Date Smoking Tobacco: Never Assessed Comments Unknown Sex and Gender Information Value Date Recorded Sex Assigned at Not on file Legal Sex Female 4:11 AM CLIENT ACCOUNT REPRESENTATIVE Gender Identity Not on file Sexual Orientation Not on file documented as of this encounter Plan of Treatment Upcoming Encounters Date Type Department Care Team (Late st Contact Info) Description 05/19/2024 1:00 PM CDT [facility] - Charanjit [address] [place] [address] [facility] [address] [place] [address] Mansoor Conde MD [address] [facility] [address] [place] [address] documented as of this encounter Visit Diagnoses Not on filedocumented in this encounter Care Teams Carbon Plant Grinder Relationship Specialty Start Date End Date Alexander Calhoun MD [address] [place] [address] PCP - General Internal Medicine 05/29/18 documented as of this encounter
--- OUTSIDE RECORDS SUMMARY | 2024-04-24 16:38 | XMS_ITS | Clinical Summary ---
Author Organization [facility] Address [address] [place] [address] Phone Care Team Providers Care Facilitator Name Role Phone Alexander Calhoun MD Primary Care Provider [phone] Allergies No known active allergies Medications ezetimibe [...] STL ABSTRACTION Provider, Abstract 02/13/2024 Orders Only [facility] Oncology and Hematology - Charanjit [address] [address] Mansoor Conde MD 02/13/2024 Telephone [facility] Oncology and Hematology - Charanjit [address] [place] [address] Mansoor Conde MD blood clot [...] on file Legal Sex Female 4:11 AM DIRECTOR CLINICAL INFORMATION SERVICES Gender Identity Not on file Sexual Orientation [...] Description 05/19/2024 1:00 PM CDT Office Visit [facility] Oncology and Hematology - Charanjit [address] [place] [address] Mansoor Conde MD [facility] [address] [place] [address] Health Maintenance Due Date Last [...] DOPPLER LEG RIGHT Routine 02/13/2024 2:23 PM DIRECTOR CLINICAL INFORMATION SERVICES ENDOSCOPY, COLON, SCREENING Routine 12/17/2014 from Last 3 Months or Most Recently Relevant to Health Maintenance Results * US VENOUS DOPPLER LEG RIGHT (02/13/2024 2:23 PM DIRECTOR CLINICAL INFORMATION SERVICES) Anatomical Region Laterality Modality Lower Extremity Other Mansoor Conde MD US ORDERABLES Final Result * (ABNORMAL) ENDOSCOPY, COLON, SCREENING (12/17/2014) Alexander Cee MD GI PROCEDURE ORDERABLES Edited R esult - Final [facility] from Last 3 Months or Most Recently Relevant to Health Maintenance Insurance [employer] [facility] [employer] PPO MCR Care Teams Facilitator Relationship Specialty Start Date End Date Alexander Calhoun MD [address] [place] [address] PCP - General Internal Medicine 05/29/18
--- OUTSIDE RECORDS SUMMARY | 2024-04-24 16:38 | XMS_ITS | Encounter Summary ---
Author Organization [facility] Address [address] [place] [address] Care Team Providers Care Gauge Maker Name Role Phone Alexander Calhoun MD Primary Care Provider [phone] Encounter Details Date Type Department Care Team (Late st Contact Info) Description 07/05/2000 Outpatient Historical HIS [facility] & Kg Apodaca MD Social History Tobacco Use Types Packs/Day Years Used Date Smoking Tobacco: Never Assessed Comments Unknown Sex and Gender Information Value Date Recorded Sex Assigned at Not on file Legal Sex Female 4:11 AM SALARY MANAGER Gender Identity Not on file Sexual Orientation Not on file documented as of this encounter Plan of Treatment Upcoming Encounters Date Type Department Care Team (Late st Contact Info) Description 05/19/2024 1:00 PM CDT Office Visit [facility] Oncology and Hematology - Charanjit [address] [facility] [address] [place] [address] Mansoor Conde MD [address] [facility] [address] [place] [address] documented as of this encounter Visit Diagnoses Not on filedocumented in this encounter Care Teams Gauge Maker Relationship Specialty Start Date End Date Alexander Calhoun MD [address] [place] [address] PCP - General Internal Medicine 05/29/18 documented as of this encounter
--- OUTSIDE RECORDS SUMMARY | 2024-04-24 16:40 | XMS_ITS | Referral Summary ---
Author Organization [facility] Address [address] [place] [address] Care Team Providers Care Draw Bench Operator Helper Name Role Phone Alexander Calhoun MD Primary Care Provider [phone] Source Comments [facility],non-owned Affiliates and Associated Physician Practices is amultiple site organization consisting of ambulatory clinics and hospital sitesin [place], [place], [place] and [place]. This disclosure is being madepursuant to the Care Everywhere program and may not contain all information available regarding this patient. Last updated 17.[facility] Allergies No known active allergies Medications * [...] Not on file Administered Medications Care Teams Draw Bench Operator Helper Relationship Specialty Start Date End Date Alexander Calhoun MD PCP - General 05/15/18
--- OUTSIDE RECORDS SUMMARY | 2024-04-24 16:40 | XMS_ITS | Encounter Summary ---
Author Organization [facility] Address [address] [place] [address] Care Team Providers Care Welder Shielded Metal Arc Name Role Phone Alexander Calhoun MD Primary Care Provider [phone] Encounter Details Date Type Department Care Team (Latest Contact Info) Description 02/24/2022 Signdatt Message Enc [facility] Family & Internal Medicine [id number] [place] [address] Alexander Calhoun MD [address] [place] [address] Waldrop Social [...] Dr. Alexander Calhoun Sent: 02/24/2022 3:30 PM WEIGHT TRAINING INSTRUCTOR Subject: Referral to Dr. Benjie Waldrop has not received the referral for the biopsy. Please fax the referral and all records to Dr. Waldrop at [phone]. Thank you. HT TRAINING INSTRUCTOR documented in this encounter Plan of Treatment Upcoming Encounters Date Type Department Care Team (Late st Contact Info) Description 05/07/2024 12:00 PM WEIGHT TRAINING INSTRUCTOR Office Visit [facility] Family & Internal Medicine - [address] [address] Alexander Calhoun MD [address] [place] [address] documented as of this encounter Visit Diagnoses Not on filedocumented in this encounter Additional Health Concerns Assessment Noted Time PHQ-9 Depression Total Score: 1 05/02/19 22 11:35 AM WEIGHT TRAINING INSTRUCTOR documented as of this encounter Care Teams Welder Shielded Metal Arc Relationship Specialty Start Date End Date Alexander Calhoun MD [address] [place] [address] PCP - General INTERNAL MEDICINE 04/22/18 documented as of this encounter
--- OUTSIDE RECORDS SUMMARY | 2024-04-24 16:40 | XMS_ITS | Patient Health Summary ---
Author Organization [email or web address] Address [address] [facility] [place] [address] Care Team Providers Care Landscaping Manager Name Role Phone Alexander Calhoun MD Primary Care Provider [phone] Note from [facility],non-owned Affiliates and Associated Physician Practices is amultiple site organization consisting of ambulatory clinics and hospital sitesin [place], [place] and [place]. This disclosure is being madepursuant to the Care Everywhere program and may not contain all information available regarding this patient. Last updated 17.[email or web address] Allergies No known active allergies Medications * [...] of skin * EYE EXAM(Performed 02/11/2019) * KS DESTROY NERVE FACE MUSCLE, UNILAT(Performed 12/26/2018) Performed for Blepharospasm * KS DESTROY NERVE FACE MUSCLE, UNILAT(Performed 09/27/2018) Performed for Blepharospasm * KS DESTROY NERVE FACE MUSCLE, UNILAT(Performed 05/16/2018) Performed for Blepharospasm * PROC OPH BOTOX PROCEDURE - FACIAL MUSCLE(Performed 05/16/2018) Performed for Blepharospasm * SLU BOTOX PRECERT(Performed 02/13/2018) Performed for Blepharospasm * KS DESTROY NERVE FACE MUSCLE, UNILAT(Performed 02/13/2018) Performed for Blepharospasm * PROC OPH MISC PROCEDURE(Performed 02/13/2018) Performed for Blepharospasm * KS DESTROY NERVE FACE MUSCLE, UNILAT(Performed 11/13/2017) Performed for Blepharospasm * KS DESTROY NERVE FACE MUSCLE, UNILAT(Performed 07/26/2017) Performed for Blepharospasm * DERMATOPATHOLOGY(Performed 11/12/2013) Results * DERMATOPATHOLOGY (04/04/2023 3:33 AM EXECUTIVE MARKETING ASSISTANT) Only the most recent of2 resultswithin the time period is included. Case Report Dermatopathology Report Case: [id number] Authorizing Provider: Christiano Gan MD Collected: 04/04/2023 03:33 AM Ordering Location: [facility] Received: 04/06/2023 07:39 AM Pathologist: Yesika Lopez MD Specimen: Skin, frontal scalp 3:28 PM [facility] DERMATOPATHOLOGY LABORATORY Final Diagnosis Specimen A. 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 The specimen consists of a shave biopsy measuring 12x7x6 mm. Jar 0. 3:28 PM [facility] DERMATOPATHOLOGY LABORATORY Microscopic Description Specimen A. SKIN, frontal scalp: The epidermis shows parakeratosis, full thickness disorderly maturation of keratinocytes, mitoses at different levels, and dyskeratotic cells. There is a column of marked compact hyperkeratosis. 3:28 PM [facility] DERMATOPATHOLOGY LABORATORY Disclaimer An external and internal positive and negative controls are appropriate for the histochemical, immunohistochemical and immunofluorescence stain(s) in this case (if any), except where stated explicitly. The performance characteristics of the stain(s) cited in this report were developed and its performance characteristic determined by the Dermatopathology Laboratory at [facility], directed by Dr. Karin Xiong. These tests need not be, and therefore are not, approved by the [place] Food and Drug Administration. The tests are used for clinical purposes. Billing Codes Specimen Charges Stain Charges 43961 1 4 3:28 PM [facility] DERMATOPATHOLOGY LABORATORY Embedded Images 3:28 PM [facility] DERMATOPATHOLOGY LABORATORY Pathology/Cytolo gy TISSUE SPECIMEN FROM SKIN / Unknown 04/04/2023 3:33 AM EXECUTIVE MARKETING ASSISTANT 04/06/2023 7:39 AM EXECUTIVE MARKETING ASSISTANT Christiano Gan MD LAB - PATHOLOGY/CYTO LOGY ORDERABLES DERMATOPATHOLOGY LABORATORY [facility] - Department of Dermatology [address] [place] [id number] [place] [address] * EYE EXAM (02/11/2019 9:08 AM EXECUTIVE MARKETING ASSISTANT) Anatomical Region Laterality Modality Other Narrative 02/11/2019 9:08 AM EXECUTIVE MARKETING ASSISTANT Ordered by an unspecified provider. Scanned Document SCANNING ONLY * KS DESTROY NERVE FACE MUSCLE, UNILAT (12/26/2018 4:19 PM CDT) Narrative Chasity Abrams - 12/26/2018 4:19 PM CDT Chasity Abrams 12/26/2018 7:59 PM Kelsey Waddell MD PROCEDURE/MINOR SURG ICAL ORDERABLES * KS DESTROY NERVE FACE MUSCLE, UNILAT (09/27/2018 10:13 AM CDT) Narrative Kanchan Rene - 09/27/2018 10:13 AM CDT Kanchan Rene 09/27/2018 10:13 AM Kelsey Waddell MD PROCEDURE/MINOR SURG ICAL ORDERABLES * KS DESTROY NERVE FACE MUSCLE, UNILAT (05/16/2018 12:19 AM EXECUTIVE MARKETING ASSISTANT) Narrative Dimple Hanks MD - 05/16/2018 12:19 AM EXECUTIVE MARKETING ASSISTANT Dimple Hanks MD 05/16/2018 12:09 AM Botox [...] [facility] OPH BOTOX PRECERT (02/13/2018 9:23 PM EXECUTIVE MARKETING ASSISTANT) Dimple Walden MD - 02/13/2018 9:23 PM EXECUTIVE MARKETING ASSISTANT Dimple Hanks MD 02/13/2018 9:23 PM Precert order. Delores Blanco MD PROCEDURE/MINOR SURG ICAL ORDERABLES * KS DESTROY NERVE FACE MUSCLE, UNILAT (02/13/2018 9:22 PM EXECUTIVE MARKETING ASSISTANT) Dimple Walden MD - 02/13/2018 9:22 PM EXECUTIVE MARKETING ASSISTANT Dimple Hansk MD 02/13/2018 9:22 PM Botox Operative Note [...] Blanco MD PROCEDURE/MINOR SURG ICAL ORDERABLES * KS DESTROY NERVE FACE MUSCLE, UNILAT (11/13/2017 5:03 PM CDT) Narrative Kelsey Waddell MD - 11/13/2017 5:03 PM CDT Kelsey Waddell MD 11/13/2017 5:03 PM (No note.) Kelsey Waddell MD PROCEDURE/MINOR SURG ICAL ORDERABLES * KS DESTROY NERVE FACE MUSCLE, UNILAT (07/26/2017 8:16 PM CDT) Narrative Kelsey Waddell MD - 07/26/2017 8:16 PM CDT Kelsey Waddell MD 07/26/2017 8:16 PM (No note.) Kelsey Waddell MD PROCEDURE/MINOR SURG ICAL ORDERABLES Care Teams Landscaping Manager Relationship Specialty Start Date End Date Alexander Calhoun MD PCP - General 05/15/18
--- OUTSIDE RECORDS SUMMARY | 2024-04-24 16:40 | XMS_ITS | Encounter Summary ---
Author Organization [facility] Address [address] [place] [address] Care Team Providers Care Cryptanalyst Name Role Phone Alexander Calhoun MD Primary Care Provider [phone] Encounter Details Date Type Department Care Team (Late Contact Info) Description 09/06/2022 Avitide Message Enc [facility] Medical [facility] [address] [place], [place] [address] [facility] [employer], [facility] Provider Air Quality Message Social History Tobacco [...] (Late Contact Info) Description 05/07/2024 12:00 PM SAMMYING MACHINE OPERATOR Office Visit [facility] Medical [facility] Family & Internal Medicine [address] [address] Alexander Calhoun MD [address] [place] [address] documented as of this encounter Visit Diagnoses Not on filedocumented in this encounter Additional Health Concerns Assessment Noted Time PHQ-9 Depression Total Score: 6 04/24/19 23 11:42 AM SAMMYING MACHINE OPERATOR documented as of this encounter Care Teams Cryptanalyst Relationship Specialty Start Date End Date Alexander Calhoun MD [address] [place] [address] PCP - General INTERNAL MEDICINE 04/22/18 documented as of this encounter
--- OUTSIDE RECORDS SUMMARY | 2024-04-24 16:40 | XMS_ITS | Encounter Summary ---
Author Organization [facility] Address [address] [facility] [place] [address] Care Team Providers Care Intermediate Frame Tender Name Role Phone Alexander Calhoun MD Primary Care Provider [phone] Encounter Details Date Type Department Care Team (Late st Contact Info) Description 04/04/2023 Lab Requisition [facility] - DermPath Lab [address] [facility] [place] [phone] Christiano Gan MD [facility] DERMATOLOGY [address] [place] [address] Neoplasm of uncertain behavior of skin [...] Diagnosis Comments DERMATOPATHOLOGY Routine 04/04/2023 3:33 AM LEARNING SUPPORT TEACHER Neoplasm of uncertain behavior of skin documented in this encounter Results * DERMATOPATHOLOGY (04/04/2023 3:33 AM LEARNING SUPPORT TEACHER) Case Report Dermatopathology Report Case: [id number] Authorizing Provider: Christiano Gan MD Collected: 04/04/2023 03:33 AM Ordering Location: [facility] Lab Received: 04/06/2023 07:39 AM Pathologist: Yesika Lopez MD Specimen: Skin, frontal scalp 3:28 PM [facility] DERMATOPATHOLOGY LABORATORY Final Diagnosis Specimen A. 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 The specimen consists of a shave biopsy measuring 12x7x6 mm. Jar 0. 3:28 PM [facility] DERMATOPATHOLOGY LABORATORY Microscopic Description Specimen A. SKIN, frontal scalp: The epidermis shows parakeratosis, full thickness disorderly maturation of keratinocytes, mitoses at different levels, and dyskeratotic cells. There is a column of marked compact hyperkeratosis. 3:28 PM [facility] DERMATOPATHOLOGY LABORATORY Disclaimer An external and internal positive and negative controls are appropriate for the histochemical, immunohistochemical and immunofluorescence stain(s) in this case (if any), except where stated explicitly. The performance characteristics of the stain(s) cited in this report were developed and its performance characteristic determined by the Dermatopathology Laboratory at [facility], directed by Dr. Karin Xiong. These tests need not be, and therefore are not, approved by the [place] Food and Drug Administration. The tests are used for clinical purposes. Billing Codes Specimen Charges Stain Charges 45817 1 3:28 PM [facility] DERMATOPATHOLOGY LABORATORY Embedded Images 3:28 PM [facility] DERMATOPATHOLOGY LABORATORY Pathology/Cytolo gy TISSUE SPECIMEN FROM SKIN / Unknown 04/04/2023 3:33 AM LEARNING SUPPORT TEACHER 04/06/2023 7:39 AM [facility] Christiano Gan MD LAB - PATHOLOGY/CYTO LOGY ORDERABLES DERMATOPATHOLOGY LABORATORY [facility] - Department of Dermatology [address] [phone] documented in this encounter Visit Diagnoses Diagnosis Neoplasm of uncertain behavior of skin documented in this encounter Care Teams Intermediate Frame Tender Relationship Specialty Start Date End Date Alexander Calhoun MD PCP - General 05/15/18 documented as of this encounter
--- OUTSIDE RECORDS SUMMARY | 2024-04-24 16:40 | XMS_ITS | Clinical Summary ---
Author Organization [facility] [employer] Address [address] [facility] [place] [address] Care Team Providers Care Analyst Food And Beverage Name Role Phone Alexander Calhoun MD Primary Care Provider [phone] Source Comments [facility] [employer],non-owned Affiliates and Associated Physician Practices is amultiple site organization consisting of ambulatory clinics and hospital sitesin [place], [place], [place] and [place]. This disclosure is being madepursuant to the Care Everywhere program and may not contain all information available regarding this patient. Last updated 17.[facility] [employer] Allergies No known active allergies Medications * [...] age to complete this topic Care Teams Analyst Food And Beverage Relationship Specialty Start Date End Date Alexander Calhoun MD PCP - General 05/15/18
--- NOTE | 2024-04-24 17:06 | PC.NURSE ---
pt and family tell this RN that they would like to go to [facility] because they called and have an empty waiting room . pt ambulates well with steady gait and in no reps. distress.
--- OUTSIDE RECORDS SUMMARY | 2024-04-24 17:20 | XMS_ITS | Encounter Summary ---
Author Organization [facility] Address [address] [place] [address] Care Team Providers Care Gaming Department Head Name Role Phone Alexander Calhoun MD Primary Care Provider [phone] Encounter Details Date Type Department Care Team (Late st Contact Info) Description 04/22/1999 Outpatient Historical [facility] Catracho Ball MD [address] [facility] [address] [place] [address] Social History Tobacco Use Types Packs/Day Years Used Date Smoking Tobacco: Never Assessed Comments Unknown Sex and Gender Information Value Date Recorded Sex Assigned at Not on file Legal Sex Female 4:11 AM SHEARER HELPER Gender Identity Not on file Sexual Orientation Not on file documented as of this encounter Plan of Treatment Upcoming Encounters Date Type Department Care Team (Late st Contact Info) Description 05/19/2024 1:00 PM CDT Office Visit [facility] Oncology and Hematology - Charanjit [address] [facility] [address] [place] [address] Mansoor Conde MD [address] [facility] [address] [place] [address] documented as of this encounter Visit Diagnoses Not on filedocumented in this encounter Care Teams Gaming Department Head Relationship Specialty Start Date End Date Alexander Calhoun MD [address] [place] [phone] PCP - General Internal Medicine 05/29/18 documented as of this encounter
--- OUTSIDE RECORDS SUMMARY | 2024-04-24 17:20 | XMS_ITS | Encounter Summary ---
Author Organization [facility] Healthcare Address [address] [place] [address] Care Team Providers Care Soaker Name Role Phone Omar Patel MD Primary Care Provider [phone] Reason for Visit * Diagnostic Imaging (Routine) - Closed Specialty Diagnoses / Procedures Referred By Martha zurita Referred To Contact Procedures Breast Imaging Screening Outside Reference Yamilka Fernandez NP Phone: tel: fax: Referral ID Status Reason Start Date Expiration Date Visits Re quested Visits Authorized [id number] Closed 03/01/2022 03/31/2023 1 1 Encounter Details Date Type Department Care Team (Late st Contact Info) Description 11/29/2016 Hospital Encounter [facility] [address] [place] [address] Social History Tobacco Use Types Packs/Day Years Used Date Smoking Tobacco: Never Smokeless Tobacco: Never Alcohol Use Standard Drinks/Week Comments No 0 (1 standard drink = 0.6 oz pur e alcohol) Comments No Sex and Gender Information Value Date Recorded Sex Assigned at Not on file Legal Sex Female 2:19 AM CONTROL OPERATOR Gender Identity Not on file Sexual [...] CDT) Impressions [facility] - 03/01/2022 10:35 AM CONTROL OPERATOR These images are for Reference purposes only and have not been reviewed by [facility] Radiology. There will be no report generated by a [facility] Radiologist. Narrative [facility] - 03/01/2022 10:35 AM CONTROL OPERATOR EXAMINATION: Images For Reference Purposes Only us Yamilka Fernandez HEALTH POLICY ANALYST IMG MAMMO PROCEDURES Fin al Result [facility] documented in this encounter Visit Diagnoses Not on filedocumented in this encounter Care Teams Soaker Relationship Specialty Start Date End Date Omar Patel MD PCP - General 07/12/16 11/29/16 documented as of this encounter
--- OUTSIDE RECORDS SUMMARY | 2024-04-24 17:20 | XMS_ITS | Encounter Summary ---
Author Organization [facility] Address [address] [place] [address] Care Team Providers Care Service Provider Name Role Phone Alexander Calhoun MD Primary Care Provider [phone] Encounter Details Date Type Department Care Team (Late st Contact Info) Description 03/07/2000 Outpatient Historical [facility] & Kg Apodaca MD Social History Tobacco Use Types Packs/Day Years Used Date Smoking Tobacco: Never Assessed Comments Unknown Sex and Gender Information Value Date Recorded Sex Assigned at Not on file Legal Sex Female 4:11 AM DIGITAL PRESS OPERATOR Gender Identity Not on file Sexual Orientation Not on file documented as of this encounter Plan of Treatment Upcoming Encounters Date Type Department Care Team (Late st Contact Info) Description 05/19/2024 1:00 PM CDT Office Visit [facility] Oncology and Hematology - Charanjit [address] [place] [address] [facility] [address] [place] [address] Mansoor Conde MD [address] [facility] [address] [place] [address] documented as of this encounter Visit Diagnoses Not on filedocumented in this encounter Care Teams Service Provider Relationship Specialty Start Date End Date Alexander Calhoun MD [address] [place] [address] PCP - General Internal Medicine 05/29/18 documented as of this encounter
--- OUTSIDE RECORDS SUMMARY | 2024-04-24 17:20 | XMS_ITS | Patient Health Summary ---
Author Organization [facility] Address [address] [facility] [place] [address] Care Team Providers Care Singe Machine Operator Name Role Phone Alexander Calhoun MD Primary Care Provider [phone] [facility],non-owned Affiliates and Associated Physician Practices is amultiple site organization consisting of ambulatory clinics and hospital sitesin [place], [place], [place] and [place]. This disclosure is being madepursuant to the Care Everywhere program and may not contain all information available regarding this patient. Last updated 17.[facility] Allergies No known active allergies Medications * [...] of skin * EYE EXAM(Performed 02/11/2019) * AK DESTROY NERVE FACE MUSCLE, UNILAT(Performed 12/26/2018) Performed for Blepharospasm * AK DESTROY NERVE FACE MUSCLE, UNILAT(Performed 09/27/2018) Performed for Blepharospasm * AK DESTROY NERVE FACE MUSCLE, UNILAT(Performed 05/16/2018) Performed for Blepharospasm * PROC OPH BOTOX PROCEDURE - FACIAL MUSCLE(Performed 05/16/2018) Performed for Blepharospasm * [facility]U BOTOX PRECERT(Performed 02/13/2018) Performed for Blepharospasm * AK DESTROY NERVE FACE MUSCLE, UNILAT(Performed 02/13/2018) Performed for Blepharospasm * PROC OPH MISC PROCEDURE(Performed 02/13/2018) Performed for Blepharospasm * AK DESTROY NERVE FACE MUSCLE, UNILAT(Performed 11/13/2017) Performed for Blepharospasm * AK DESTROY NERVE FACE MUSCLE, UNILAT(Performed 07/26/2017) Performed for Blepharospasm * DERMATOPATHOLOGY(Performed 11/12/2013) Results * DERMATOPATHOLOGY (04/04/2023 3:33 AM CANDY MAKER HELPER) Only the most recent of2 resultswithin the time period is included. Case Report Dermatopathology Report Case: [id number] Authorizing Provider: Christiano Gan MD Collected: 04/04/2023 03:33 AM Ordering Location: [facility] DermPath Lab Received: 04/06/2023 07:39 AM Pathologist: Yesika Lopez MD Specimen: Skin, frontal scalp 3:28 PM [facility] Final Diagnosis Specimen A. 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 The specimen consists of a shave biopsy measuring 12x7x6 mm. Jar 0. 3:28 PM [facility] Microscopic Description Specimen A. SKIN, frontal scalp: The epidermis shows parakeratosis, full thickness disorderly maturation of keratinocytes, mitoses at different levels, and dyskeratotic cells. There is a column of marked compact hyperkeratosis. 3:28 PM [facility] Disclaimer An external and [...] purposes. Billing Codes Specimen Charges Stain Charges 54400 1 4 3:28 PM [facility] Embedded Images 3:28 PM [facility] Pathology/Cytolo gy TISSUE SPECIMEN FROM SKIN / Unknown 04/04/2023 3:33 AM CANDY MAKER HELPER 04/06/2023 7:39 AM CANDY MAKER HELPER Christaino Gan MD LAB - PATHOLOGY/CYTO LOGY ORDERABLES DERMATOPATHOLOGY LABORATORY [facility] - Department of Dermatology [address] [place] [id number] [place] [address] * EYE EXAM (02/11/2019 9:08 AM CANDY MAKER HELPER) Anatomical Region Laterality Modality Other Narrative 02/11/2019 9:08 AM CANDY MAKER HELPER Ordered by an unspecified provider. Scanned Document SCANNING ONLY * AK DESTROY NERVE FACE MUSCLE, UNILAT (12/26/2018 4:19 PM CDT) Narrative Chasity Abrams - 12/26/2018 4:19 PM CDT Chasity Abrams 12/26/2018 7:59 PM Kelsey Waddell MD PROCEDURE/MINOR SURG ICAL ORDERABLES * AK DESTROY NERVE FACE MUSCLE, UNILAT (09/27/2018 10:13 AM CDT) Narrative Kanchan Rene - 09/27/2018 10:13 AM CDT Kanchan Rene 09/27/2018 10:13 AM Kelsey Waddell MD PROCEDURE/MINOR SURG ICAL ORDERABLES * AK DESTROY NERVE FACE MUSCLE, UNILAT (05/16/2018 12:19 AM CANDY MAKER HELPER) Narrative Dimple Hanks MD - 05/16/2018 12:19 AM CANDY MAKER HELPER Dimple Hanks MD 05/16/2018 12:09 AM Botox [...] [facility] OPH BOTOX PRECERT (02/13/2018 9:23 PM CANDY MAKER HELPER) Dimple Walden MD - 02/13/2018 9:23 PM CANDY MAKER HELPER Dimple Hanks MD 02/13/2018 9:23 PM Precert order. Delores Blanco MD PROCEDURE/MINOR SURG ICAL ORDERABLES * AK DESTROY NERVE FACE MUSCLE, UNILAT (02/13/2018 9:22 PM CANDY MAKER HELPER) Dimple [place] MD - 02/13/2018 9:22 PM CANDY MAKER HELPER Dimple Hanks MD 02/13/2018 9:22 PM Botox [...] Blanco MD PROCEDURE/MINOR SURG ICAL ORDERABLES * AK DESTROY NERVE FACE MUSCLE, UNILAT (11/13/2017 5:03 PM CDT) Narrative Kelsey Waddell MD - 11/13/2017 5:03 PM CDT Kelsey Waddell MD 11/13/2017 5:03 PM (No note.) Kelsey Waddell MD PROCEDURE/MINOR SURG ICAL ORDERABLES * AK DESTROY NERVE FACE MUSCLE, UNILAT (07/26/2017 8:16 PM CDT) Narrative Kelsey Waddell MD - 07/26/2017 8:16 PM CDT Kelsey Waddell MD 07/26/2017 8:16 PM (No note.) Kelsey Waddell MD PROCEDURE/MINOR SURG ICAL ORDERABLES Care Teams Singe Machine Operator Relationship Specialty Start Date End Date Alexander Calhoun MD PCP - General 05/15/18
--- OUTSIDE RECORDS SUMMARY | 2024-04-24 17:20 | XMS_ITS | Clinical Summary ---
Author Organization [facility] Address [address] [place] [address] Phone Care Team Providers Care Golf Tournament Consultant Name Role Phone Alexander Calhoun MD Primary Care Provider [phone] Allergies No known active allergies Medications ezetimibe [...] STL ABSTRACTION Provider, Abstract 02/13/[address] [facility] Oncology and Hematology - Charanjit [address] [address] Mansoor Conde MD 02/13/[address] [facility] Oncology and Hematology - Charanjit [address] [place] [address] Mansoor Conde MD blood clot [...] on file Legal Sex Female 4:11 AM MENTAL HEALTH ORDERLY Gender Identity Not on file Sexual Orientation [...] 05/19/2024 1:00 PM CDT Office Visit [facility] Oncology and Hematology - Charanjit [address] [place] [address] Mansoor Conde MD [address] [facility] [address] [place] [address] Health Maintenance Due Date Last [...] DOPPLER LEG RIGHT Routine 02/13/2024 2:23 PM MENTAL HEALTH ORDERLY ENDOSCOPY, COLON, SCREENING Routine 12/17/2014 from Last 3 Months or Most Recently Relevant to Health Maintenance Results * US VENOUS DOPPLER LEG RIGHT (02/13/2024 2:23 PM MENTAL HEALTH ORDERLY) Anatomical Region Laterality Modality Lower Extremity Other Mansoor Conde MD US ORDERABLES Final Result * (ABNORMAL) ENDOSCOPY, COLON, SCREENING (12/17/2014) Alexander Cee MD GI PROCEDURE ORDERABLES Edited R esult - Final [facility] from Last 3 Months or Most Recently Relevant to Health Maintenance Insurance [employer] [facility] AET[employer] PPO MCR Care Teams Golf Tournament Consultant Relationship Specialty Start Date End Date Alexander Calhoun MD [address] [place] [address] PCP - General Internal Medicine 05/29/18
--- OUTSIDE RECORDS SUMMARY | 2024-04-24 17:20 | XMS_ITS | Encounter Summary ---
Author Organization [facility] Address [address] [place] [address] Care Team Providers Care Pitting Machine Operator Name Role Phone Alexander Calhoun MD Primary Care Provider [phone] Encounter Details Date Type Department Care Team (Late st Contact Info) Description 08/14/2000 Outpatient Historical HIS MD Miguel HERNANDEZ Stephen, MD Social History Tobacco Use Types Packs/Day Years Used Date Smoking Tobacco: Never Assessed Comments Unknown Sex and Gender Information Value Date Recorded Sex Assigned at Not on file Legal Sex Female 4:11 AM CUTTER GAS Gender Identity Not on file Sexual Orientation Not on file documented as of this encounter Plan of Treatment Upcoming Encounters Date Type Department Care Team (Late st Contact Info) Description 05/19/2024 1:00 PM CDT Office Visit [facility] Oncology and Hematology - Charanjit [address] [place] [address] [facility] [address] [place] [address] Mansoor Conde MD [address] [facility] [address] [place] [address] documented as of this encounter Visit Diagnoses Not on filedocumented in this encounter Care Teams Pitting Machine Operator Relationship Specialty Start Date End Date Alexander Calhoun MD [address] [place] [address] PCP - General Internal Medicine 05/29/18 documented as of this encounter
--- OUTSIDE RECORDS SUMMARY | 2024-04-24 17:20 | XMS_ITS | Encounter Summary ---
Author Organization [facility] Address [address] [place] [address] Care Team Providers Care Sales Floor Manager Name Role Phone Alexander Calhoun MD Primary Care Provider [phone] Encounter Details Date Type Department Care Team (Late st Contact Info) Description 01/13/1999 Outpatient Historical [facility] Catracho Ball MD [address] [facility] [address] [place] [address] Social History Tobacco Use Types Packs/Day Years Used Date Smoking Tobacco: Never Assessed Comments Unknown Sex and Gender Information Value Date Recorded Sex Assigned at Not on file Legal Sex Female 4:11 AM MACHINED PARTS QUALITY INSPECTOR Gender Identity Not on file Sexual Orientation Not on file documented as of this encounter Plan of Treatment Upcoming Encounters Date Type Department Care Team (Late st Contact Info) Description 05/19/2024 1:00 PM CDT Office Visit [facility] Oncology and Hematology - Chraanjit [address] [facility] [address] [place] [address] Mansoor Conde MD [address] [facility] [address] [place] [address] documented as of this encounter Visit Diagnoses Not on filedocumented in this encounter Care Teams Sales Floor Manager Relationship Specialty Start Date End Date Alexander Calhoun MD [address] [place] [address] PCP - General Internal Medicine 05/29/18 documented as of this encounter
--- OUTSIDE RECORDS SUMMARY | 2024-04-24 17:20 | XMS_ITS | Encounter Summary ---
Author Organization [facility] Address [address] [place] [address] Care Team Providers Care Planetarium Sky Show Technician Name Role Phone Alexander Calhoun MD Primary Care Provider [phone] Encounter Details Date Type Department Care Team (Late st Contact Info) Description 10/13/1998 Outpatient Historical [facility] Catracho Ball MD [address] [facility] [address] [place] [address] Social History Tobacco Use Types Packs/Day Years Used Date Smoking Tobacco: Never Assessed Comments Unknown Sex and Gender Information Value Date Recorded Sex Assigned at Not on file Legal Sex Female 4:11 AM SEMICONDUCTOR WAFER INSPECTOR Gender Identity Not on file Sexual Orientation Not on file documented as of this encounter Plan of Treatment Upcoming Encounters Date Type Department Care Team (Late st Contact Info) Description 05/19/2024 1:00 PM CDT Office Visit [facility] Oncology and Hematology - Charanjit [address] [facility] [address] [place] [address] Mansoor Conde MD [address] [facility] [address] [place] [address] documented as of this encounter Visit Diagnoses Not on filedocumented in this encounter Care Teams Planetarium Sky Show Technician Relationship Specialty Start Date End Date Alexander Calhoun MD [address] [place] [address] PCP - General Internal Medicine 05/29/18 documented as of this encounter
--- OUTSIDE RECORDS SUMMARY | 2024-04-24 17:20 | XMS_ITS | Encounter Summary ---
Author Organization [facility] Address [address] [place] [address] Care Team Providers Care Electric Stove Mechanic Name Role Phone Alexander Calhoun MD Primary Care Provider [phone] Reason for Visit * Reason Onset Date Comments Advice 04/23/2024 Encounter Details Date Type Department Care Team (Late st Contact Info) Description 04/23/2024 Telephone [facility] Medical [facility] Family & Internal Medicine [place] [address] [place] [address] Alexander Calhoun MD [address] [place] [address] Advice Social History Tobacco Use Types [...] She is having ABD pain and pressure. GEMENT LIAISON * Edith Castañeda - 04/24/2024 2:04 PM CST Patient called back to report no success after second dose. Patient is a little upset and wonders what else she can do. Please call back as soon as possible. GEMENT LIAISON * Julianna Humphrey MA - 04/23/2024 3:49 PM CST Patient informed and v/u of recommendation and instructions. She will call back if no BM after 2nd dose. GEMENT LIAISON * Alexander Calhoun MD - 04/23/2024 12:15 PM CST Magnesium citrate 1/2 bottle today, if no BM by morning she can take the other half. GEMENT LIAISON * Samanta Garcia - 04/23/2024 9:11 AM CST Pt called in having constipation pt states taken miralax, Docsuate sodium pt has been taking one per day but is unsure on further directions. Please Advise. GEMENT LIAISON documented in this encounter Plan of Treatment Upcoming Encounters Date Type Department Care Team (Late st Contact Info) Description 05/07/2024 12:00 PM ENGAGEMENT LIAISON Office Visit [facility] Medical Group Family & Internal Medicine - [place] [address] [place] [address] Alexander Calhoun MD [facility] [address] [place], [place] [address] documented as of this encounter Visit Diagnoses Not on filedocumented in this encounter Additional Health Concerns Assessment Noted Time PHQ-9 Depression Total Score: 10 024 1:00 PM CDT documented as of this encounter Care Teams Electric Stove Mechanic Relationship Specialty Start Date End Date Alexander Calhoun MD [address] [place] [address] PCP - General INTERNAL MEDICINE 04/22/18 documented as of this encounter
--- OUTSIDE RECORDS SUMMARY | 2024-04-24 17:20 | XMS_ITS | Encounter Summary ---
Author Organization [facility] Address [address] [place] [address] Care Team Providers Care Jack Machine Operator Name Role Phone Alexander Calhoun MD Primary Care Provider [phone] Encounter Details Date Type Department Care Team (Latest Contact Info) Description 02/24/2022 Entegriont Message Enc [facility] Medical Group Family & Internal Medicine [place] [place] [address] Alexander Calhoun MD [address] [place] [address] Waldrop Social [...] Dr. Alexander Calhoun Sent: 02/24/2022 3:30 PM PODIATRY DOCTOR Subject: Referral to Dr. Benjie Waldrop has not received the referral for the biopsy. Please fax the referral and all records to Dr. Waldrop at [phone]. Thank you. ATRY DOCTOR documented in this encounter Plan of Treatment Upcoming Encounters Date Type Department Care Team (Late st Contact Info) Description 05/07/2024 12:00 PM PODIATRY DOCTOR Office Visit [facility] Medical Group Family & Internal Medicine - [address] [address] Alexander Calhoun MD [address] [place] [address] documented as of this encounter Visit Diagnoses Not on filedocumented in this encounter Additional Health Concerns Assessment Noted Time PHQ-9 Depression Total Score: 1 05/02/19 22 11:35 AM PODIATRY DOCTOR documented as of this encounter Care Teams Jack Machine Operator Relationship Specialty Start Date End Date Alexander Calhoun MD [address] [place] [address] PCP - General INTERNAL MEDICINE 04/22/18 documented as of this encounter
--- OUTSIDE RECORDS SUMMARY | 2024-04-24 17:20 | XMS_ITS | Encounter Summary ---
Author Organization [facility] Address [address] [facility] [address] [place] [address] Care Team Providers Care Magazine Repairer Name Role Phone Omar Patel MD Primary Care Provider [phone] Bhargav Fritz MD Primary Care Provider Alexander Calhoun MD Primary Care Provider [phone] Encounter Details Date Type Department Care Team (Late st Contact Info) Description 06/27/2016 Orders Only [facility] ProviderMelany MD [address] [place] [address] Social History Tobacco Use Types Packs/Day Years Used Date Smoking Tobacco: Never Assessed Comments Unknown Sex and Gender Information Value Date Recorded Sex Assigned at Not on file Legal Sex Female 2:19 AM JIGMAKER Gender Identity Not on file Sexual Orientation [...] on filedocumented in this encounter Care Teams Magazine Repairer Relationship Specialty Start Date End Date Omar Patel MD PCP - General 07/12/16 11/29/16 Bhargav Fritz MD [address] [facility] [address] [place] [address] PCP - General Family Medicine 11/30/16 07/14/18 Alexander Calhoun MD [address] [place] [address] PCP - General Internal Medicine 07/15/18 documented as of this encounter
--- OUTSIDE RECORDS SUMMARY | 2024-04-24 17:20 | XMS_ITS | Referral Summary ---
Author Organization [facility] Address [address] [facility] [place] [address] Care Team Providers Care Drill Bit Sharpener Name Role Phone Alexander Calhoun MD Primary Care Provider [phone] Source Comments [facility],non-owned Affiliates and Associated Physician Practices is amultiple site organization consisting of ambulatory clinics and hospital sitesin [place], [place], [place] and [place]. This disclosure is being madepursuant to the Care Everywhere program and may not contain all information available regarding this patient. Last updated 17.[facility] Allergies No known active allergies Medications * [...] Not on file Administered Medications Care Teams Drill Bit Sharpener Relationship Specialty Start Date End Date Alexander Calhoun MD PCP - General 05/15/18
--- OUTSIDE RECORDS SUMMARY | 2024-04-24 17:20 | XMS_ITS | Encounter Summary ---
Author Organization [facility] Address [address] [place] [address] Care Team Providers Care Production Leader Name Role Phone Alexander Calhoun MD Primary Care Provider [phone] Encounter Details Date Type Department Care Team (Late st Contact Info) Description 08/25/1999 Outpatient Historical HIS MD Miguel HERNANDEZ Stephen, MD Social History Tobacco Use Types Packs/Day Years Used Date Smoking Tobacco: Never Assessed Comments Unknown Sex and Gender Information Value Date Recorded Sex Assigned at Not on file Legal Sex Female 4:11 AM SINTER MACHINE OPERATOR Gender Identity Not on file Sexual Orientation Not on file documented as of this encounter Plan of Treatment Upcoming Encounters Date Type Department Care Team (Late st Contact Info) Description 05/19/2024 1:00 PM CDT Office Visit [facility] Oncology and Hematology - Charanjit [address] [place] [address] [facility] [address] [place] [address] Mansoor Conde MD [address] [facility] [address] [place] [address] documented as of this encounter Visit Diagnoses Not on filedocumented in this encounter Care Teams Production Leader Relationship Specialty Start Date End Date Alexander Calhoun MD [address] [place] [address] PCP - General Internal Medicine 05/29/18 documented as of this encounter
--- OUTSIDE RECORDS SUMMARY | 2024-04-24 17:20 | XMS_ITS | Clinical Summary ---
Author Organization [facility] [address] Address [address] [place] [address] Care Team Providers Care Consumer Services Advisor Name Role Phone Alexander Calhoun MD Primary Care Provider [phone] Allergies Active Allergy Reactions Criticality Noted Date [...] Department Care Team Description 03/14/2024 1:30 PM PROSTHETIC ASSISTANT - 03/14/2024 11:59 PM PROSTHETIC ASSISTANT Hospital Encounter [facility] - Breast Imaging [address] [facility] Floor [address] [place] [address] Abnormal mammogram; Mass of right breast, unspecified [...] on file Legal Sex Female 2:19 AM PROSTHETIC ASSISTANT Gender Identity Not on file Sexual Orientation [...] history exists Medical Devices Implanted Type Area Sem Manager Device Identifier Shelf Expiration Date Model / Serial / Lot Bard Peripheral Vascular Ultraclip Bard 17ga 10cm 2 Trigger Permanent Ultrasound [id number] - [id number] Implanted:Qty: 1 on 05/11/2022 at [facility] [employer] Peripheral Vascular [id number] / / Procedures Procedure Name Priority Date/Time Associated Diagnosis Comments DIAGNOSTIC MAMMOGRAM BILATERAL W JEREMY Schedule Routine, Read Routine (OP Routine) 03/14/2024 3:04 PM PROSTHETIC ASSISTANT Abnormal mammogram Mass of right breast, unspecified quadrant from Last 3 Months Results * Diagnostic Mammogram Bilateral W Jeremy (03/14/2024 3:04 PM PROSTHETIC ASSISTANT) Anatomical Region Laterality Modality Breast Bilateral Mammography 03/14/2024 3:09 PM PROSTHETIC ASSISTANT Impressions 03/14/2024 3:09 PM PROSTHETIC ASSISTANT 1. Left breast calcifications are benign. 2. No evidence of malignancy in either breast. OVERALL FINAL ASSESSMENT: BI-RADS Category 2: Benign. RECOMMENDATION: Continued clinical follow-up is recommended. Dr. Gutierrez discussed the above findings and recommendations with the patient. Electronically signed by: Lula Gutierrez M.D. Narrative 03/14/2024 3:09 PM PROSTHETIC ASSISTANT EXAMINATION: BILATERAL DIGITAL DIAGNOSTIC MAMMOGRAM INCLUDING CAD [...] from Last 3 Months Insurance MEDICARE [facility] Address: [address] [address] [place] [address] AET MEDICARE T MEDICARE AET MEDICARE Care Teams Consumer Services Advisor Relationship Specialty Start Date End Date Alexander Calhoun MD [address] [place] [address] PCP - General Internal Medicine 07/15/18
--- OUTSIDE RECORDS SUMMARY | 2024-04-24 17:20 | XMS_ITS | Continuity of Care Document ---
Author Organization [facility] Address [address] [place] [address] [address] [place] [address] Phone Care Team Providers Care Paint Mixer Name Role Phone Ramona PT, DPTMatias Unavailable [...] Diagnoses Date Provider Providers Copied on Encounter [facility] [employer], [id number], tel:[phone] [place] Low back painPain in right hip Apr-03 20- 9 Ramona Salcedo. . Referring Provider: [place], [address]. tel:[phone] [facility] [address] [employer], [id number], tel:[phone] [place] Low back painPain in right hip Apr-201 9 Ramona Salcedo. . Referring Provider: [place], [address]. tel:[phone] [facility] [address] [employer] [place], [id number], [place] tel:[phone] [place] Low back painPain in right hip Apr- 5-201 9 Ramona Salcedo. . Referring Provider: [place], [address]. tel:[phone] [facility] [address] [address], [id number], [place] tel:[phone] [place] Low back painPain in right hip Apr-1 0-201 9 Makler Luke. . Referring Provider: [place], [address]. tel:[phone] [place], [place] [id number] [facility], [place], [place], [id number], [place] tel:[phone] [place] Low back painPain in right hip Apr-0 8-201 9 Makler Luke. . Referring Provider: Alexander Calhoun, [place], [address]. tel:[phone] [place] [address] [address] [place] [address], [place], [id number], [place] tel:[phone] [place] Low back painPain in right hip Apr-0 5-201 9 Makler Luke. . Referring Provider: [place], [address]. tel:[phone] [place] [address] [address] [facility], [place], [id number], [place] tel:[phone] [place] Low back painPain in right hip Apr-0 3-201 9 Makler Luke. . Referring Provider: [place], [address]. tel:[phone] [place] [address] [address] [facility], [place], [id number], [place] tel:[phone] [place] Low back painPain in right hip Apr-0 1-201 9 Makler Luke. . Referring Provider: [place], [address]. tel:[phone] [place], [place] [id number] [address], [place], [place], [id number], [place] tel:[phone] [place] Low back painPain in right hip Mar-2 9-201 9 Makler Luke. . Referring Provider: Alexander Calhoun [address] [place], [address]. tel:[phone] [place], [place] [id number] [facility], [place], [id number], [place] tel:[phone] [place] Low back painPain in right hip Mar-2 7-201 9 Ramona Hernandezke. . Referring Provider: Alexander Calhoun, [address] [place], [address]. tel:[phone] [place], [place] [id number] [facility], [place], [id number], [place] tel:[phone] [place] Low back painPain in right hip Mar-2 5-201 9 [place] Luke. . Referring Provider: Alexander Calhoun [address] [place], [address]. tel:[phone] [place] [id number] [address], [id number], [place] tel:[phone] [place] Low back painPain in right hip Mar-2 2-201 9 Ramona Hernandezke. . Referring Provider: Alexander Calhoun [address] [place], [address]. tel:[phone] [place], [place] [id number] [address], [id number], [place] tel:[phone] [place] No Information Feb-0 2-201 6 Salgado Diomedes. , [place], [place]. Referring Provider: Alexander Calhoun [address] [place], [address]. tel:[phone] [place], [place] [id number] [address], [id number], [place] tel:[phone] [place] No Information Jan-3 0-201 6 Damian Berryn. , [place], [place]. Referring Provider: Alexander Calhoun [address] [place], [address]. tel:[phone] [place] [id number] [address], [id number], tel:[phone] [place] No Information 6 [place], [place], [place]. Referring Provider: [place], [address]. tel:[phone] [facility], [id number], tel:[phone] [place] No Information 6 [place], [place]. Referring Provider: [place], [address]. tel:[phone] [place], [place] [id number] [address], [id number], tel:[phone] [place] No Information 6 [place], [place]. Referring Provider: [place], [address]. tel:[phone] [facility], [id number], tel:[phone] [place] No Information 6 [place], [place], . Referring Provider: [place], [address]. tel:[phone] [place], [place] [id number] [address], [id number], [place] tel:[phone] [place] Unsteadiness on feetPain, unspecifiedOth symptoms and signs involving the musculoskeletal systemMuscle weakness (generalized) 6 [place], [place], [place]. Referring Provider: [place], [address]. tel:[phone] Family History Family Member Type Diagnosis Age At Onset No Information Payers Payer name Insurance type Covered constitution party ID Kasi hayes(s) AARP Medicare Complete CI [id number] Social History Type Description Quantity Date Captured [...]
--- OUTSIDE RECORDS SUMMARY | 2024-04-24 17:20 | XMS_ITS | Clinical Summary ---
Author Organization [facility] Address [address] [place] [address] Care Team Providers Care Ore Trimmer Name Role Phone Alexander Calhoun MD Primary Care Provider [phone] Allergies No known active allergies Medications acetaminophen [...] Noted Date Diagnosed Date Pulmonary hypertension, unspecified ([facility]) 08/08/2023 Generalized muscle weakness 09/14/2021 Other primary thrombophilia ([facility]) Diffusion capacity of lung (dl), decreased 08/22 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 Chronic cough 07/15/2018 Chronic obstructive pulmonary disease ([facility]) 07/15/2018 History of pulmonary embolism 07/15/2018 Non-seasonal allergic rhinitis due to pollen 08/2018 Sleep disorder 07/15/2018 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 ([facility]) 07/15/2018 Erythrocytosis 10/01/2017 Obesity due to excess calories 01/02/2017 Pulmonary embolism ([facility]) 07/09/2016 Bilateral hip pain 01/24/2016 Unsteady gait [...] Type Department Care Team Description 04/23/2024 Telephone [facility] & Internal [address] [address] Alexander Calhoun MD Advice 03/17/2024 Scan HEALTH INFO SRVCS Scanned, Doc [facility] 02/13/2024 Scan MG HEALTH INFO SRVCS Scanned, Doc [facility] Vascular Lab Study (SCAN) 02/04/2024 1:20 PM CULLET TRUCKER Office Visit [facility] Family Internal [address] [address] lAexander Calhoun MD Follow Up; Hypertension; Hyperlipidemia; Anxiety; [...] 01/15/2021,05/15/2020,04/16/2020 Pneumococcal (Pneumovax 23) 01/14/2015 Zoster (Zostavax) 32924 Unt/0.65Ml 01/08/2015 Family History Medical History Relation [...] Comments Blood Pressure 130/60 02/04/2024 1:40 PM CULLET TRUCKER Pulse 84 02/04/2024 1:40 PM CULLET TRUCKER Temperature 36.8 C (98.2 F) 02/04/2024 1:40 PM CULLET TRUCKER Respiratory Rate 18 02/04/2024 1:40 PM CULLET TRUCKER Oxygen Saturation 94% 02/04/2024 1:40 PM CULLET TRUCKER Inhaled Oxygen Concentration - - Weight 87.1 kg (192 lb) 02/04/2024 1:40 PM CULLET TRUCKER Height 162.6 cm (5' 4 ) 02/04/2024 1:40 PM CULLET TRUCKER Body Mass Index 32.96 02/04/2024 1:40 PM CULLET TRUCKER Plan of Treatment Upcoming Encounters Date Type Department Care Team (Late st Contact Info) Description 05/07/2024 12:00 PM CULLET TRUCKER Office Visit [facility] Family & Internal Medicine - [place] [address] [place] [address] Alexander Calhoun MD [address] [place] [address] Health Maintenance Due Date Last Done Comments DTaP, Tdap and Td Vaccines (1 - Tdap) 12/28/1954 Annual Medicare Wellness Visit 2001 Zoster Vaccines (2 of 3) 03/05/2015 01/08/2015 Pneumococcal Vaccine: 65+ Years (2 of 2 - PCV) 01/15/2016 01/14/2015 PHQ-2 (Physician [place]) 03/12/2024 08/08/2023 Influenza Adult (#1) 2024 11/14/2019, [...] Last 3 Months Insurance [employer] Care Teams Ore Trimmer Relationship Specialty Start Date End Date Alexander Calhoun MD [address] [place] [address] PCP - General INTERNAL MEDICINE 04/22/18
--- OUTSIDE RECORDS SUMMARY | 2024-04-24 17:20 | XMS_ITS | Encounter Summary ---
Author Organization [facility] Address [address] [place] [address] Care Team Providers Care Cyber Analyst Name Role Phone Alexander Calhoun MD Primary Care Provider [phone] Encounter Details Date Type Department Care Team (Late st Contact Info) Description 11/01/1999 Outpatient Historical HIS MD Miguel HERNANDEZ Stephen, MD Social History Tobacco Use Types Packs/Day Years Used Date Smoking Tobacco: Never Assessed Comments Unknown Sex and Gender Information Value Date Recorded Sex Assigned at Not on file Legal Sex Female 4:11 AM BOOKBINDER APPRENTICE Gender Identity Not on file Sexual Orientation Not on file documented as of this encounter Plan of Treatment Upcoming Encounters Date Type Department Care Team (Late st Contact Info) Description 05/19/2024 1:00 PM CDT Office Visit [facility] Oncology and Hematology - Charanjit [address] [place] [address] [facility] [address] [place] [address] Mansoor Conde MD [address] [facility] [address] [place] [address] documented as of this encounter Visit Diagnoses Not on filedocumented in this encounter Care Teams Cyber Analyst Relationship Specialty Start Date End Date Alexander Calhoun MD [address] [place] [address] PCP - General Internal Medicine 05/29/18 documented as of this encounter
--- OUTSIDE RECORDS SUMMARY | 2024-04-24 17:20 | XMS_ITS | Encounter Summary ---
Author Organization [facility] Address [address] [place] [address] Care Team Providers Care Insurance Healthcare Consultant Name Role Phone Alexander Calhoun MD Primary Care Provider [phone] Encounter Details Date Type Department Care Team (Late st Contact Info) Description 01/12/2000 Outpatient Historical HIS [facility] Catracho Ball MD [address] [facility] [address] [place] [address] Social History Tobacco Use Types Packs/Day Years Used Date Smoking Tobacco: Never Assessed Comments Unknown Sex and Gender Information Value Date Recorded Sex Assigned at Not on file Legal Sex Female 4:11 AM LINK WIRE FABRIC MACHINE OPERATOR Gender Identity Not on file Sexual Orientation Not on file documented as of this encounter Plan of Treatment Upcoming Encounters Date Type Department Care Team (Late st Contact Info) Description 05/19/2024 1:00 PM CDT Office Visit [facility] Oncology and Hematology - Charanjit [address] [facility] [address] [place] [address] Mansoor Conde MD [address] [facility] [address] [place] [address] documented as of this encounter Visit Diagnoses Not on filedocumented in this encounter Care Teams Insurance Healthcare Consultant Relationship Specialty Start Date End Date Alexander Calhoun MD [address] [place] [address] PCP - General Internal Medicine 05/29/18 documented as of this encounter
--- OUTSIDE RECORDS SUMMARY | 2024-04-24 17:20 | XMS_ITS | Encounter Summary ---
Author Organization [facility] Address [address] [place] [address] Care Team Providers Care Receivables Specialist Name Role Phone Alexander Calhoun MD Primary Care Provider [phone] Encounter Details Date Type Department Care Team (Late st Contact Info) Description 11/10/1999 Outpatient Historical HIS [facility] Catracho Ball MD [address] [facility] [address] [place] [address] Social History Tobacco Use Types Packs/Day Years Used Date Smoking Tobacco: Never Assessed Comments Unknown Sex and Gender Information Value Date Recorded Sex Assigned at Not on file Legal Sex Female 4:11 AM ZINC PLATING MACHINE OPERATOR Gender Identity Not on file Sexual Orientation Not on file documented as of this encounter Plan of Treatment Upcoming Encounters Date Type Department Care Team (Late st Contact Info) Description 05/19/2024 1:00 PM CDT Office Visit [facility] Oncology and Hematology - Charanjit [address] [facility] [address] [place] [address] Mansoor Conde MD [address] [facility] [address] [place] [address] documented as of this encounter Visit Diagnoses Not on filedocumented in this encounter Care Teams Receivables Specialist Relationship Specialty Start Date End Date Alexander Calhoun MD [address] [place] [address] PCP - General Internal Medicine 05/29/18 documented as of this encounter
--- OUTSIDE RECORDS SUMMARY | 2024-04-24 17:20 | XMS_ITS | Encounter Summary ---
Author Organization [facility] Address [address] [place] [address] Care Team Providers Care Wire Rope Sales Representative Name Role Phone Alexander Calhoun MD Primary Care Provider [phone] Encounter Details Date Type Department Care Team (Late st Contact Info) Description 07/21/1999 Outpatient Historical HIS [facility] Catracho Ball MD [address] [facility] [address] [place] [address] Social History Tobacco Use Types Packs/Day Years Used Date Smoking Tobacco: Never Assessed Comments Unknown Sex and Gender Information Value Date Recorded Sex Assigned at Not on file Legal Sex Female 4:11 AM POSTAL TRANSPORTATION CLERK Gender Identity Not on file Sexual Orientation Not on file documented as of this encounter Plan of Treatment Upcoming Encounters Date Type Department Care Team (Late st Contact Info) Description 05/19/2024 1:00 PM CDT Office Visit [facility] Oncology and Hematology - Charanjit [address] [facility] [address] [place] [address] Mansoor Conde MD [address] [facility] [address] [place] [address] documented as of this encounter Visit Diagnoses Not on filedocumented in this encounter Care Teams Wire Rope Sales Representative Relationship Specialty Start Date End Date Alexander Calhoun MD [address] [place] [address] PCP - General Internal Medicine 05/29/18 documented as of this encounter
--- OUTSIDE RECORDS SUMMARY | 2024-04-24 17:20 | XMS_ITS | Encounter Summary ---
Author Organization [facility] Address [address] [facility] [place] [address] Care Team Providers Care Biometric Fingerprinting Technician Name Role Phone Alexander Calhoun MD Primary Care Provider [phone] Encounter Details Date Type Department Care Team (Late st Contact Info) Description 04/04/2023 Lab Requisition [facility] - DermPath Lab [address] [facility] [place] [address] Christiano Gan MD [facility] DERMAT[facility] [address] [place] [address] Neoplasm of uncertain behavior of skin [...] Diagnosis Comments DERMATOPATHOLOGY Routine 04/04/2023 3:33 AM MULTISKILL OPERATOR Neoplasm of uncertain behavior of skin documented in this encounter Results * DERMATOPATHOLOGY (04/04/2023 3:33 AM MULTISKILL OPERATOR) Case Report Dermatopathology Report Case: [id number] Authorizing Provider: Christiano Gan MD Collected: 04/04/2023 03:33 AM Ordering Location: [facility] DermPath Lab Received: 04/06/2023 07:39 AM Pathologist: Yesika Lopez MD Specimen: Skin, frontal scalp 3:28 PM [facility] DERMATOP[facility] Final Diagnosis Specimen A. 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 The specimen consists of a shave biopsy measuring 12x7x6 mm. Jar 0. 3:28 PM [facility]ERMATOPATHOLOGY [facility] Microscopic Description Specimen A. SKIN, frontal scalp: The epidermis shows parakeratosis, full thickness disorderly maturation of keratinocytes, mitoses at different levels, and dyskeratotic cells. There is a column of marked compact hyperkeratosis. 3:28 PM [facility] DERMATOPATH[facility]Y [facility] Disclaimer An external and internal positive and negative controls are appropriate for the histochemical, immunohistochemical and immunofluorescence stain(s) in this case (if any), except where stated explicitly. The performance characteristics of the stain(s) cited in this report were developed and its performance characteristic determined by the Dermatopathology Laboratory at [facility], directed by Dr. Karin Xiong. These tests need not be, and therefore are not, approved by the [place] Food and Drug Administration. The tests are used for clinical purposes. Billing Codes Specimen Charges Stain Charges 73272 1 3:28 PM [facility]ERMATOP[facility] Embedded Images 3:28 PM [facility] Pathology/Cytolo gy TISSUE SPECIMEN FROM SKIN / Unknown 04/04/2023 3:33 AM MULTISKILL OPERATOR 04/06/2023 7:39 AM [facility] Christiano Gan MD LAB - PATHOLOGY/CYTO LOGY ORDERABLES DERMATOPATHOLOGY LABORATORY [facility] - Department of Dermatology [address] [phone] documented in this encounter Visit Diagnoses Diagnosis Neoplasm of uncertain behavior of skin documented in this encounter Care Teams Biometric Fingerprinting Technician Relationship Specialty Start Date End Date Alexander Calhoun MD PCP - General 05/15/18 documented as of this encounter
--- OUTSIDE RECORDS SUMMARY | 2024-04-24 17:20 | XMS_ITS | Encounter Summary ---
Author Organization [facility] Address [address] [place] [address] Care Team Providers Care Cable Lacer Name Role Phone Alexander Calhoun MD Primary Care Provider [phone] Encounter Details Date Type Department Care Team [...] Coronavirus/COVID-19? No / Unsure 04/24/2022 11:16 AM VEHICLE DISMANTLER documented as of this encounter Plan of Treatment Upcoming Encounters Date Type Department Care Team ( Contact Info) Description 05/07/2024 12:00 PM VEHICLE DISMANTLER Office Visit [facility] Family & Internal Medicine [address] [address] Alexander Calhoun MD [address] [place] [address] documented as of this encounter Visit Diagnoses Not on filedocumented in this encounter Additional Health Concerns Assessment Noted Time PHQ-9 Depression Total Score: 6 04/24/19 23 11:42 AM VEHICLE DISMANTLER documented as of this encounter Care Teams Cable Lacer Relationship Specialty Start Date End Date Alexander Calhoun MD [address] [place] [address] PCP - General INTERNAL MEDICINE 04/22/18 documented as of this encounter
--- OUTSIDE RECORDS SUMMARY | 2024-04-24 17:20 | XMS_ITS | Referral Summary ---
Author Organization [facility] [address] Address [address] [place] [address] Care Team Providers Care Data Engineer Name Role Phone Alexander Calhoun MD Primary Care Provider [phone] Encounters Date Type Department Care Team Description 03/14/2024 1:30 PM URANIUM PROCESSING SUPERVISOR - 03/14/2024 11:59 PM URANIUM PROCESSING SUPERVISOR Hospital Encounter [facility] [address] [facility] Floor 8 [place] [address] Abnormal mammogram; Mass of right breast, unspecified [...] on file Legal Sex Female 2:19 AM URANIUM PROCESSING SUPERVISOR Gender Identity Not on file Sexual [...] on file Medical Devices Implanted Type Area Tombstone Setter Device Identifier Shelf Expiration Date Model / Serial / Lot Bard Peripheral Vascular Ultraclip Bard 17ga 10cm 2 Trigger Permanent Ultrasound [id number] - [id number] Implanted:Qty: 1 on 05/11/2022 at [facility] Bard Peripheral Vascular [id number] / / Procedures Procedure Name Priority Date/Time Associated Diagnosis Comments DIAGNOSTIC MAMMOGRAM BILATERAL W JEREMY Schedule Routine, Read Routine (OP Routine) 03/14/2024 3:04 PM URANIUM PROCESSING SUPERVISOR Abnormal mammogram Mass of right breast, unspecified quadrant from Last 3 Months Results * Diagnostic Mammogram Bilateral W Jeremy (03/14/2024 3:04 PM URANIUM PROCESSING SUPERVISOR) Anatomical Region Laterality Modality Breast Bilateral Mammography 03/14/2024 3:09 PM URANIUM PROCESSING SUPERVISOR Impressions 03/14/2024 3:09 PM URANIUM PROCESSING SUPERVISOR 1. Left breast calcifications are benign. 2. No evidence of malignancy in either breast. OVERALL FINAL ASSESSMENT: BI-RADS Category 2: Benign. RECOMMENDATION: Continued clinical follow-up is recommended. Dr. Gutierrez discussed the above findings and recommendations with the patient. Electronically signed by: Lula Gutierrez M.D. Narrative 03/14/2024 3:09 PM URANIUM PROCESSING SUPERVISOR EXAMINATION: BILATERAL DIGITAL DIAGNOSTIC MAMMOGRAM INCLUDING CAD [...] signed by: Lula Gutierrez M.D. Lexie Andrew AIR FORCE SENIOR OFFICER IMG MAMMO PROCEDURES Final Result from Last 3 Months Insurance MEDICARE [facility] MED[facility] Address: [address] [address] [place] [address] [facility] MEDICARE [facility] Address: [address] [place] [address] [facility] MEDICARE [facility] MEDICARE Care Teams Data Engineer Relationship Specialty Start Date End Date Alexander Calhoun MD [address] [place], [place] [id number] PCP - General Internal Medicine 07/15/18
--- OUTSIDE RECORDS SUMMARY | 2024-04-24 17:20 | XMS_ITS | Encounter Summary ---
Author Organization [facility] Address [address] [place] [address] Care Team Providers Care Linoleum Tile Layer Name Role Phone Alexander Calhoun MD Primary Care Provider [phone] Encounter Details Date Type Department Care Team (Late st Contact Info) Description 07/05/2000 Outpatient Historical HIS [facility] & Kg Apodaca MD Social History Tobacco Use Types Packs/Day Years Used Date Smoking Tobacco: Never Assessed Comments Unknown Sex and Gender Information Value Date Recorded Sex Assigned at Not on file Legal Sex Female 4:11 AM DOCTOR OF NURSE ANESTHESIA Gender Identity Not on file Sexual Orientation Not on file documented as of this encounter Plan of Treatment Upcoming Encounters Date Type Department Care Team (Late st Contact Info) Description 05/19/2024 1:00 PM CDT Office Visit [facility] Oncology and Hematology - Charanjit [address] [facility] [address] [place] [address] Mansoor Conde MD [address] [facility] [address] [place] [address] documented as of this encounter Visit Diagnoses Not on filedocumented in this encounter Care Teams Linoleum Tile Layer Relationship Specialty Start Date End Date Alexander Calhoun MD [address] [place] [address] PCP - General Internal Medicine 05/29/18 documented as of this encounter
--- OUTSIDE RECORDS SUMMARY | 2024-04-24 17:20 | XMS_ITS | Clinical Summary ---
Author Organization [facility] Address [address] [facility] [place] [address] Care Team Providers Care Machine Buffer Name Role Phone Alexander Calhoun MD Primary Care Provider [phone] Source Comments [facility],non-owned Affiliates and Associated Physician Practices is amultiple site organization consisting of ambulatory clinics and hospital sitesin [place], [place], [place] and [place]. This disclosure is being madepursuant to the Care Everywhere program and may not contain all information available regarding this patient. Last updated 17.[facility] Allergies No known active allergies Medications * [...] age to complete this topic Care Teams Machine Buffer Relationship Specialty Start Date End Date Alexander Calhoun MD PCP - General 05/15/18
--- OUTSIDE RECORDS SUMMARY | 2024-04-24 17:20 | XMS_ITS | Encounter Summary ---
Author Organization [facility] Address [address] [place] [address] Care Team Providers Care Spooler Operator Name Role Phone Alexander Calhoun MD Primary Care Provider [phone] Encounter Details Date Type Department Care Team (Late st Contact Info) Description 07/15/1998 Outpatient Historical HIS [facility] Catracho Ball MD [address] [facility] [address] [place] [address] Social History Tobacco Use Types Packs/Day Years Used Date Smoking Tobacco: Never Assessed Comments Unknown Sex and Gender Information Value Date Recorded Sex Assigned at Not on file Legal Sex Female 4:11 AM CRAB MEAT PROCESSOR Gender Identity Not on file Sexual Orientation Not on file documented as of this encounter Plan of Treatment Upcoming Encounters Date Type Department Care Team (Late st Contact Info) Description 05/19/2024 1:00 PM CDT Office Visit [facility] Oncology and Hematology - Charanjit [address] [facility] [address] [place] [address] Mansoor Conde MD [address] [facility] [address] [place] [address] documented as of this encounter Visit Diagnoses Not on filedocumented in this encounter Care Teams Spooler Operator Relationship Specialty Start Date End Date Alexander Calhoun MD [address] [place] [address] PCP - General Internal Medicine 05/29/18 documented as of this encounter
--- OUTSIDE RECORDS SUMMARY | 2024-04-24 17:20 | XMS_ITS | Encounter Summary ---
Author Organization [facility] Address [address] [place] [address] Care Team Providers Care Dog Beautician Name Role Phone Alexander Calhoun MD Primary Care Provider [phone] Encounter Details Date Type Department Care Team (Late st Contact Info) Description 10/13/1999 Outpatient Historical HIS [facility] Catracho Ball MD [address] [facility] [address] [place] [address] Social History Tobacco Use Types Packs/Day Years Used Date Smoking Tobacco: Never Assessed Comments Unknown Sex and Gender Information Value Date Recorded Sex Assigned at Not on file Legal Sex Female 4:11 AM MANAGEMENT PLANNER Gender Identity Not on file Sexual Orientation Not on file documented as of this encounter Plan of Treatment Upcoming Encounters Date Type Department Care Team (Late st Contact Info) Description 05/19/2024 1:00 PM CDT Office Visit [facility] Oncology and Hematology - Charanjit [address] [facility] [address] [place] [address] Mansoor Conde MD [address] [facility] [address] [place] [address] documented as of this encounter Visit Diagnoses Not on filedocumented in this encounter Care Teams Dog Beautician Relationship Specialty Start Date End Date Alexander Calhoun MD [address] [place] [address] PCP - General Internal Medicine 05/29/18 documented as of this encounter
--- OUTSIDE RECORDS SUMMARY | 2024-04-24 17:20 | XMS_ITS | Encounter Summary ---
Author Organization [facility] Address [address] [place] [address] Care Team Providers Care Ground Crew Linesman Name Role Phone Alexander Calhoun MD Primary Care Provider [phone] Encounter Details Date Type Department Care Team (Late Contact Info) Description 09/06/2022 [employer] Message Enc [facility] Medical [facility] [address] [place], [place] [address] [place], [facility] Provider Air Quality Message Social History [...] (Late Contact Info) Description 05/07/2024 12:00 PM SALES DEVELOPMENT DIRECTOR Office Visit [facility] Medical [facility] Family & Internal Medicine [address] [address] Alexander Calhoun MD [address] [place] [address] documented as of this encounter Visit Diagnoses Not on filedocumented in this encounter Additional Health Concerns Assessment Noted Time PHQ-9 Depression Total Score: 6 04/24/19 23 11:42 AM SALES DEVELOPMENT DIRECTOR documented as of this encounter Care Teams Ground Crew Linesman Relationship Specialty Start Date End Date Alexander Calhoun MD [address] [place] [address] PCP - General INTERNAL MEDICINE 04/22/18 documented as of this encounter
--- OUTSIDE RECORDS SUMMARY | 2024-04-24 17:20 | XMS_ITS | Encounter Summary ---
Author Organization [facility] Address [address] [place] [address] Care Team Providers Care X Ray Consultant Name Role Phone Alexander Calhoun MD [...] on file Legal Sex Female 4:11 AM COBOL MAINFRAME DEVELOPER Gender Identity Not on file Sexual Orientation Not on file documented as of this encounter Plan of Treatment Upcoming Encounters Date Type Department Care Team (Late st Contact Info) Description 05/19/2024 1:00 PM CDT Office Visit [facility] Oncology and Hematology - Charanjit [address] [place] [address] [facility] [address] [place] [address] Mansoor Conde MD [address] [facility] [address] [place] [address] documented as of this encounter Visit Diagnoses Not on filedocumented in this encounter Care Teams X Ray Consultant Relationship Specialty Start Date End Date Alexander Calhoun MD [address] [place] [address] PCP - General Internal Medicine 05/29/18 documented as of this encounter
== END 2024-04-24 17:24 | disposition left against medical advice (07) ==
PROVIDERS: PCP Internal Medicine
DX: K59.00 Constipation, unspecified (principal)
CPT/HCPCS: 99199

== ENCOUNTER 2024-05-19 12:34 | Outpatient (CLI) | payer MEDICARE, SELFPAY ==
[2024-05-19 13:05] LABS: Basophils Percent Auto 0.3 % (0.2-1.2); Eosinophils Percent Auto 0.4 % (0-4.4); Hematocrit 44.7 % (37.0-47.0); Hemoglobin 14.6 g/dL (12.0-15.0); Immature Granulocyte Absolute 0.01 K/mm3 (0.00-0.031); Immature Granulocyte Percent A 0.1 % (0-0.5); Lymphocytes Absolute Auto 1.04 K/mm3 (0.9-3.2); Mean Corpuscular HGB Conc 32.7 g/dl (32-36); Mean Corpuscular Hemoglobin 30.5 pg (26-34); Mean Corpuscular Volume 93.3 fl (80-100); Mean Platelet Volume 11.1 fl (7.4-10.4); Monocytes Absolute Auto 0.9 K/mm3 (0.1-0.6); Monocytes Percent Auto 11.6 % (2.6-8.5); Neutrophils Absolute Auto 5.5 K/mm3 (1.3-6.7); Neutrophils Percent Auto 73.6 % (45.5-73.1); Platelet Count Result 234 k/mm3 (150-375); Red Blood Count 4.79 M/mm3 (4.2-5.4); Red Cell Distribution Width 13.5 % (11.5-14.5); White Blood Count 7.4 K/mm3 (4.5-10.0)
[2024-05-19 13:08] LABS: Blood Urea Nitrogen 21 mg/dL (8-26); Carbon Dioxide 27 mmol/L (22-30); Chloride 103 mmol/L (98-109); Estimated Glomerular Filt Rate 59; Glucose 82 mg/dL (70-105); Potassium 4.3 mmol/L (3.5-4.9); Sodium 140 mmol/L (138-146)
[2024-05-19 13:08] LABS: Platelet Estimate Adequate (Adequate); Schistocytes None Seen
[2024-05-19 13:09] LABS: Atypical Lymphocytes Present
--- OUTSIDE RECORDS SUMMARY | 2024-05-19 14:24 | XMS_ITS | Encounter Summary ---
Author Organization [facility] Address [address] [place] [address] Care Team Providers Care Admission Liaison Name Role Phone Alexander Calhoun MD Primary Care Provider [phone] Encounter Details Date Type Department Care Team (Late st Contact Info) Description 04/22/1999 Outpatient Historical HIS [facility] Catracho Ball MD [address] [facility] [address] [place] [address] Social History Tobacco Use Types Packs/Day Years Used Date Smoking Tobacco: Never Assessed Comments Unknown Sex and Gender Information Value Date Recorded Sex Assigned at Not on file Legal Sex Female 4:11 AM OPERATING SYSTEMS PROGRAMMER Gender Identity Not on file Sexual Orientation Not on file documented as of this encounter Plan of Treatment Upcoming Encounters Date Type Department Care Team (Late st Contact Info) Description 11/27/2024 1:15 PM CDT Office Visit [facility] Oncology and Hematology - Charanjit [address] [facility] [address] [place] [address] Mansoor Conde MD [address] [facility] [address] [place] [address] documented as of this encounter Visit Diagnoses Not on filedocumented in this encounter Care Teams Admission Liaison Relationship Specialty Start Date End Date Alexander Calhoun MD [address] [place] [address] PCP - General Internal Medicine 05/29/18 documented as of this encounter
--- OUTSIDE RECORDS SUMMARY | 2024-05-19 14:24 | XMS_ITS | Encounter Summary ---
Author Organization [facility] Address [address] [place] [address] Care Team Providers Care Reception Agent Name Role Phone Alexander Calhoun MD Primary Care Provider [phone] Encounter Details Date Type Department Care Team (Late st Contact Info) Description 08/25/1999 Outpatient Historical HIS MD Miguel HERNANDEZ Stephen, MD Social History Tobacco Use Types Packs/Day Years Used Date Smoking Tobacco: Never Assessed Comments Unknown Sex and Gender Information Value Date Recorded Sex Assigned at Not on file Legal Sex Female 4:11 AM MANAGER FINANCIAL Gender Identity Not on file Sexual Orientation Not on file documented as of this encounter Plan of Treatment Upcoming Encounters Date Type Department Care Team (Late st Contact Info) Description 11/27/2024 1:15 PM CDT Office Visit [facility] Oncology and Hematology - Charanjit [address] [facility] [address] [place] [address] Mansoor Conde MD [address] [facility] [address] [place] [address] documented as of this encounter Visit Diagnoses Not on filedocumented in this encounter Care Teams Reception Agent Relationship Specialty Start Date End Date Alexander Calhoun MD [address] [place] [address] PCP - General Internal Medicine 05/29/18 documented as of this encounter
--- OUTSIDE RECORDS SUMMARY | 2024-05-19 14:24 | XMS_ITS | Encounter Summary ---
Author Organization [facility] Address [address] [place] [address] Care Team Providers Care Centralized Traffic Control Operator Name Role Phone Alexander Calhoun MD Primary Care Provider [phone] Encounter Details Date Type Department Care Team (Late st Contact Info) Description 10/13/1998 Outpatient Historical HIS [facility] Catracho Ball MD [address] [facility] [address] [place] [address] Social History Tobacco Use Types Packs/Day Years Used Date Smoking Tobacco: Never Assessed Comments Unknown Sex and Gender Information Value Date Recorded Sex Assigned at Not on file Legal Sex Female 4:11 AM PRODUCTION GRIP Gender Identity Not on file Sexual Orientation Not on file documented as of this encounter Plan of Treatment Upcoming Encounters Date Type Department Care Team (Late st Contact Info) Description 11/27/2024 1:15 PM CDT Office Visit [facility] Oncology and Hematology - Charanjit [address] [facility] [address] [place] [address] Mansoor Conde MD [address] [facility] [address] [place] [address] documented as of this encounter Visit Diagnoses Not on filedocumented in this encounter Care Teams Centralized Traffic Control Operator Relationship Specialty Start Date End Date Alexander Calhoun MD [address] [place] [address] PCP - General Internal Medicine 05/29/18 documented as of this encounter
--- OUTSIDE RECORDS SUMMARY | 2024-05-19 14:24 | XMS_ITS | Encounter Summary ---
Author Organization [facility] Address [address] [place] [address] Care Team Providers Care Workforce Management Manager Name Role Phone Alexander Calhoun MD Primary Care Provider [phone] Encounter Details Date Type Department Care Team (Late st Contact Info) Description 07/15/1998 Outpatient Historical HIS [facility] Catracho Ball MD [address] [facility] [address] [place] [address] Social History Tobacco Use Types Packs/Day Years Used Date Smoking Tobacco: Never Assessed Comments Unknown Sex and Gender Information Value Date Recorded Sex Assigned at Not on file Legal Sex Female 4:11 AM STARS COORDINATOR Gender Identity Not on file Sexual Orientation Not on file documented as of this encounter Plan of Treatment Upcoming Encounters Date Type Department Care Team (Late st Contact Info) Description 11/27/2024 1:15 PM CDT Office Visit [facility] Oncology and Hematology - Charanjit [address] [facility] [address] [place] [address] Mansoor Conde MD [address] [facility] [address] [place] [address] documented as of this encounter Visit Diagnoses Not on filedocumented in this encounter Care Teams Workforce Management Manager Relationship Specialty Start Date End Date Alexander Calhoun MD [address] [place] [address] PCP - General Internal Medicine 05/29/18 documented as of this encounter
--- OUTSIDE RECORDS SUMMARY | 2024-05-19 14:24 | XMS_ITS | Encounter Summary ---
Author Organization [facility] Address [address] [place] [address] Care Team Providers Care Pigment Furnace Tender Name Role Phone Omar Patel MD Primary Care Provider [phone] Reason for Visit * Diagnostic Imaging (Routine) - Closed Specialty Diagnoses / Procedures Referred By Martha zurita Referred To Contact Procedures Breast Imaging Screening Outside Reference Yamilka Fernandez NP Phone: tel: fax: Referral ID Status Reason Start Date Expiration Date Visits Re quested Visits Authorized [id number] Closed 03/01/2022 03/31/2023 1 1 Encounter Details Date Type Department Care Team (Late st Contact Info) Description 11/29/2016 Hospital Encounter [facility] [address] [place] [address] Social History Tobacco Use Types Packs/Day Years Used Date Smoking Tobacco: Never Smokeless Tobacco: Never Alcohol Use Standard Drinks/Week Comments No 0 (1 standard drink = 0.6 oz pur e alcohol) Comments No Sex and Gender Information Value Date Recorded Sex Assigned at Not on file Legal Sex Female 2:19 AM ASSISTANT PROFESSOR OF MUSIC Gender Identity Not on file Sexual Orientation [...] CDT) Impressions [facility] - 03/01/2022 10:35 AM ASSISTANT PROFESSOR OF MUSIC These images are for Reference purposes only and have not been reviewed by [facility] Radiology. There will be no report generated by a [facility] Radiologist. Narrative [facility] - 03/01/2022 10:35 AM ASSISTANT PROFESSOR OF MUSIC EXAMINATION: Images For Reference Purposes Only us Yamilka Fernandez ROTARY DRILL RIG OPERATOR IMG MAMMO PROCEDURES Fin al Result [facility] documented in this encounter Visit Diagnoses Not on filedocumented in this encounter Care Teams Pigment Furnace Tender Relationship Specialty Start Date End Date Omar Patel MD PCP - General 07/12/16 11/29/16 documented as of this encounter
--- OUTSIDE RECORDS SUMMARY | 2024-05-19 14:24 | XMS_ITS | Encounter Summary ---
Author Organization [facility] Address [address] [place] [address] Care Team Providers Care Imaging Technologist Name Role Phone Alexander Calhoun MD Primary Care Provider [phone] Encounter Details Date Type Department Care Team (Late st Contact Info) Description 10/13/1999 Outpatient Historical [facility] Catracho Ball MD [address] [facility] [address] [place] [address] Social History Tobacco Use Types Packs/Day Years Used Date Smoking Tobacco: Never Assessed Comments Unknown Sex and Gender Information Value Date Recorded Sex Assigned at Not on file Legal Sex Female 4:11 AM COMPENSATION INTERN Gender Identity Not on file Sexual Orientation Not on file documented as of this encounter Plan of Treatment Upcoming Encounters Date Type Department Care Team (Late st Contact Info) Description 11/27/2024 1:15 PM CDT Office Visit [facility] Oncology and Hematology - Charanjit [address] [facility] 200 [place] [address] Mansoor Conde MD [address] [facility] [address] [place] [address] documented as of this encounter Visit Diagnoses Not on filedocumented in this encounter Care Teams Imaging Technologist Relationship Specialty Start Date End Date Alexander Calhoun MD [address] [place] [address] PCP - General Internal Medicine 05/29/18 documented as of this encounter
--- OUTSIDE RECORDS SUMMARY | 2024-05-19 14:24 | XMS_ITS | Encounter Summary ---
Author Organization [facility] Address [address] [place] [address] Care Team Providers Care Diamond Picker Name Role Phone Alexander Calhoun MD Primary Care Provider [phone] Encounter Details Date Type Department Care Team (Late st Contact Info) Description 01/12/2000 Outpatient Historical HIS [facility] Catracho Ball MD [address] [facility] [address] [place] [address] Social History Tobacco Use Types Packs/Day Years Used Date Smoking Tobacco: Never Assessed Comments Unknown Sex and Gender Information Value Date Recorded Sex Assigned at Not on file Legal Sex Female 4:11 AM MACHINE FASTENER Gender Identity Not on file Sexual Orientation Not on file documented as of this encounter Plan of Treatment Upcoming Encounters Date Type Department Care Team (Late st Contact Info) Description 11/27/2024 1:15 PM CDT Office Visit [facility] Oncology and Hematology - Charanjit [address] [facility] [address] [place] [address] Mansoor Conde MD [address] [facility] [address] [place] [address] documented as of this encounter Visit Diagnoses Not on filedocumented in this encounter Care Teams Diamond Picker Relationship Specialty Start Date End Date Alexander Calhoun MD [address] [place] [address] PCP - General Internal Medicine 05/29/18 documented as of this encounter
--- OUTSIDE RECORDS SUMMARY | 2024-05-19 14:24 | XMS_ITS | Encounter Summary ---
Author Organization [facility] Address [address] [facility] [address] [place] [address] Care Team Providers Care Desktop Analyst Name Role Phone Omar Patel MD Primary Care Provider [phone] Bhargav Fritz MD Primary Care Provider Alexander Calhoun MD Primary Care Provider [phone] Encounter Details Date Type Department Care Team (Late st Contact Info) Description 06/27/2016 Orders Only [facility] ProviderMelany MD [address] [place] [address] Social History Tobacco Use Types Packs/Day Years Used Date Smoking Tobacco: Never Assessed Comments Unknown Sex and Gender Information Value Date Recorded Sex Assigned at Not on file Legal Sex Female 2:19 AM TECHNOLOGY PROFESSIONAL Gender Identity Not on file Sexual [...] on filedocumented in this encounter Care Teams Desktop Analyst Relationship Specialty Start Date End Date Omar Patel MD PCP - General 07/12/16 11/29/16 Bhargav Fritz MD [address] [facility] [address] [place] [address] PCP - General Family Medicine 11/30/16 07/14/18 Alexander Calhoun MD [address] [place] [address] PCP - General Internal Medicine 07/15/18 documented as of this encounter
--- OUTSIDE RECORDS SUMMARY | 2024-05-19 14:24 | XMS_ITS | Encounter Summary ---
Author Organization [facility] Address [address] [place] [address] Care Team Providers Care Billiard Player Name Role Phone Alexander Calhoun MD Primary Care Provider Encounter Details Date Type Department Care Team (Late st Contact Info) Description 07/21/1999 Outpatient Historical [facility] Catracho Ball MD [address] [facility] [address] [place] [address] Social History Tobacco Use Types Packs/Day Years Used Date Smoking Tobacco: Never Assessed Comments Unknown Sex and Gender Information Value Date Recorded Sex Assigned at Not on file Legal Sex Female 4:11 AM COMMISSION SPECIALIST Gender Identity Not on file Sexual Orientation Not on file documented as of this encounter Plan of Treatment Upcoming Encounters Date Type Department Care Team (Late st Contact Info) Description 11/27/2024 1:15 PM CDT Office Visit [facility] Oncology and Hematology - Charanjit [address] [facility] [address] [place] [address] Mansoor Conde MD [address] [facility] [address] [place] [address] documented as of this encounter Visit Diagnoses Not on filedocumented in this encounter Care Teams Billiard Player Relationship Specialty Start Date End Date Alexander Calhoun MD [address] [place] [phone] PCP - General Internal Medicine 05/29/18 documented as of this encounter
--- OUTSIDE RECORDS SUMMARY | 2024-05-19 14:24 | XMS_ITS | Encounter Summary ---
Author Organization [facility] Address [address] [place] [address] Care Team Providers Care Dye House Helper Name Role Phone Alexander Calhoun MD Primary Care Provider [phone] Encounter Details Date Type Department Care Team (Late st Contact Info) Description 11/10/1999 Outpatient Historical [facility] Catracho Ball MD [address] [facility] [address] [place] [address] Social History Tobacco Use Types Packs/Day Years Used Date Smoking Tobacco: Never Assessed Comments Unknown Sex and Gender Information Value Date Recorded Sex Assigned at Not on file Legal Sex Female 4:11 AM DIRECTOR OF STRATEGIC INITIATIVES Gender Identity Not on file Sexual Orientation Not on file documented as of this encounter Plan of Treatment Upcoming Encounters Date Type Department Care Team (Late st Contact Info) Description 11/27/2024 1:15 PM CDT Office Visit [facility] Oncology and Hematology - Charanjit [address] [facility] [address] [place] [address] Mansoor Conde MD [address] [facility] [address] [place] [address] documented as of this encounter Visit Diagnoses Not on filedocumented in this encounter Care Teams Dye House Helper Relationship Specialty Start Date End Date Alexander Calhoun MD [address] [place] [phone] PCP - General Internal Medicine 05/29/18 documented as of this encounter
--- OUTSIDE RECORDS SUMMARY | 2024-05-19 14:24 | XMS_ITS | Encounter Summary ---
Author Organization [facility] Address [address] [place] [address] Care Team Providers Care Director Of Enrollment Name Role Phone Alexander Calhoun MD Primary Care Provider [phone] Encounter Details Date Type Department Care Team (Late st Contact Info) Description 11/01/1999 Outpatient Historical HIS MD Miguel HERNANDEZ Stephen, MD Social History Tobacco Use Types Packs/Day Years Used Date Smoking Tobacco: Never Assessed Comments Unknown Sex and Gender Information Value Date Recorded Sex Assigned at Not on file Legal Sex Female 4:11 AM FUNERAL PRE ARRANGEMENT SPECIALIST Gender Identity Not on file Sexual Orientation Not on file documented as of this encounter Plan of Treatment Upcoming Encounters Date Type Department Care Team (Late st Contact Info) Description 11/27/2024 1:15 PM CDT Office Visit [facility] Oncology and Hematology - Charanjit [address] [facility] [address] [place] [address] Mansoor Conde MD [address] [facility] [address] [place] [address] documented as of this encounter Visit Diagnoses Not on filedocumented in this encounter Care Teams Director Of Enrollment Relationship Specialty Start Date End Date Alexander Calhoun MD [address] [place] [address] PCP - General Internal Medicine 05/29/18 documented as of this encounter
--- OUTSIDE RECORDS SUMMARY | 2024-05-19 14:24 | XMS_ITS | Encounter Summary ---
Author Organization [facility] Address [address] [place] [address] Care Team Providers Care Product Assembler Name Role Phone Alexander Calhoun MD Primary Care Provider [phone] Encounter Details Date Type Department Care Team (Late st Contact Info) Description 01/13/1999 Outpatient Historical [facility] Catracho Ball MD [address] [facility] [address] [place] [address] Social History Tobacco Use Types Packs/Day Years Used Date Smoking Tobacco: Never Assessed Comments Unknown Sex and Gender Information Value Date Recorded Sex Assigned at Not on file Legal Sex Female 4:11 AM PHYSICIAN RELATIONS REPRESENTATIVE Gender Identity Not on file Sexual Orientation Not on file documented as of this encounter Plan of Treatment Upcoming Encounters Date Type Department Care Team (Late st Contact Info) Description 11/27/2024 1:15 PM CDT Office Visit [facility] Oncology and Hematology - Charanjit [address] [facility] [address] [place] [address] Mansoor Conde MD [address] [facility] [address] [place] [address] documented as of this encounter Visit Diagnoses Not on filedocumented in this encounter Care Teams Product Assembler Relationship Specialty Start Date End Date Alexander Calhoun MD [address] [place] [phone] PCP - General Internal Medicine 05/29/18 documented as of this encounter
--- OUTSIDE RECORDS SUMMARY | 2024-05-19 14:25 | XMS_ITS | Encounter Summary ---
Author Organization [facility] Address [address] [facility] [place] [address] Care Team Providers Care Steam Engineer Name Role Phone Alexander Calhoun MD Primary Care Provider [phone] Encounter Details Date Type Department Care Team (Late st Contact Info) Description 04/04/2023 Lab Requisition [facility] - DermPath Lab [address] [facility], [place] [phone] Christiano Gan MD [facility] DERMATOLOGY [address] [place] [address] Neoplasm of uncertain behavior of skin [...] Diagnosis Comments DERMATOPATHOLOGY Routine 04/04/2023 3:33 AM HAIR MACHINE OPERATOR Neoplasm of uncertain behavior of skin documented in this encounter Results * DERMATOPATHOLOGY (04/04/2023 3:33 AM HAIR MACHINE OPERATOR) Case Report Dermatopathology Report Case: [id number] Authorizing Provider: Christiano Gan MD Collected: 04/04/2023 03:33 AM Ordering Location: [facility] DermPath Lab Received: 04/06/2023 07:39 AM Pathologist: Yesika Lopez MD Specimen: Skin, frontal scalp 3:28 PM [facility] DERMATOPATHOLOGY LABORATORY Final Diagnosis Specimen A. 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 The specimen consists of a shave biopsy measuring 12x7x6 mm. Jar 0. 3:28 PM [facility] DERMATOPATHOLOGY LABORATORY Microscopic Description Specimen A. SKIN, frontal scalp: The epidermis shows parakeratosis, full thickness disorderly maturation of keratinocytes, mitoses at different levels, and dyskeratotic cells. There is a column of marked compact hyperkeratosis. 3:28 PM [facility] DERMATOPATHOLOGY LABORATORY Disclaimer An external and internal positive and negative controls are appropriate for the histochemical, immunohistochemical and immunofluorescence stain(s) in this case (if any), except where stated explicitly. The performance characteristics of the stain(s) cited in this report were developed and its performance characteristic determined by the Dermatopathology Laboratory at [facility], directed by Dr. Karin Xiong. These tests need not be, and therefore are not, approved by the [place] Food and Drug Administration. The tests are used for clinical purposes. Billing Codes Specimen Charges Stain Charges 09084 1 3:28 PM [facility] DERMATOPATHOLOGY LABORATORY Embedded Images 3:28 PM [facility] DERMATOPATHOLOGY LABORATORY Pathology/Cytolo gy TISSUE SPECIMEN FROM SKIN / Unknown 04/04/2023 3:33 AM HAIR MACHINE OPERATOR 04/06/2023 7:39 AM [facility] Christiano Gan MD LAB - PATHOLOGY/CYTO LOGY ORDERABLES DERMATOPATHOLOGY LABORATORY [facility] - Department of Dermatology [address], [address] [phone] documented in this encounter Visit Diagnoses Diagnosis Neoplasm of uncertain behavior of skin documented in this encounter Care Teams Steam Engineer Relationship Specialty Start Date End Date Alexander Calhoun MD PCP - General 05/15/18 documented as of this encounter
--- OUTSIDE RECORDS SUMMARY | 2024-05-19 14:25 | XMS_ITS | Encounter Summary ---
Author Organization [facility] LUIS Costello [facility] Address [address] [place] [address] Care Team Providers Care Abstract Writer Name Role Phone Alexander Calhoun MD Primary Care Provider [phone] Reason for Visit * Reason Comments Follow Up Encounter Details Date Type Department Care Team (Late st Contact Info) Description 05/19/2024 1:00 PM CDT Office Visit [facility] Oncology and Hematology - Charanjit [address] [facility] [address] [place] [address] Mansoor Conde MD [address] [facility] [address] [place] [address] Acute deep vein thrombosis (DVT) of femoral vein of right lower extremity (CMS/HCC) (Primary Dx) Social History Tobacco Use Types Packs/Day Years Used Date Smoking Tobacco: Never Smokeless Tobacco: Never Tobacco Cessation:Counseling Given: Not Answered Alcohol Use Standard Drinks/Week Comments Yes 0 (1 standard drink = 0.6 oz pur e alcohol) social Comments No Sex and Gender Information Value Date Recorded Sex Assigned at Not on file 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 Gender Identity Not on file Sexual Orientation Not on file documented as of this encounter Last Filed Vital Signs Vital Sign Reading Time Taken Comments Blood Pressure 122/65 05/19/2024 1:13 PM CDT Pulse 67 05/19/2024 1:13 PM CDT Temperature 36.1 C (96.9 F) 05/19/2024 1:13 PM CDT Respiratory Rate 15 05/19/2024 1:13 PM CDT Oxygen Saturation 94% 05/19/2024 1:13 PM CDT Inhaled Oxygen Concentration - - Weight 82.9 kg (182 lb 12.8 oz) 05/19/2024 1:13 PM CDT Height - - Body Mass Index 30.42 08/01/2021 11:26 AM CDT documented in this encounter Progress Notes * Mansoor Conde MD - 05/19/2024 2:11 PM CDT HEMATOLOGY / ONCOLOGY PROGRESS NOTE Patient Identification: Name: Dee Dee Sánchez Age: 88 y.o. Sex: female : 1935 DIAGNOSIS Pulmonary embolism diagnosed in June 2016 Right lower extremity DVT diagnosed in June 2016 Erythrocytosis Cisco 2 mutation negative CURRENT TREATMENT Eliquis 5 mg twice a day started May 2023. TREATMENT HISTORY Xarelto 20 mg p.o. daily completed September 2016 then restarted in May 2018 due to recurrent right lower extremity DVT. Xarelto 10 mg p.o. daily. Patient was started on Lovenox on May 04, 2023 due to DVT of the left superficial femoral vein while on Xarelto. Lovenox twice a day started May 04, 2023. Started due to new blood clot in the left lower extremity SUBJECTIVE Patient came to the office for follow-up visit. She is taking Eliquis and tolerating it well. Denies any bleeding and bruising. Denies any chest pain and shortness of breath. Denies any leg pain and swelling. Weight and appetite stable. No other new complaints. Review of system Constitutional: denies fevers, sweats, weight and appetite stable, denies any tiredness and fatigue HEENT: denies sinus congestion, hearing or vision problems Respiratory: Complain of dyspnea on exertion Cardiovascular: denies chest pain, exertional chest pressure/discomfort, nausea, syncope, shortnessof breath GI: denies constipation, diarrhea, dsyphagia, reflux symptoms, vomiting, melena : denies dysuria, frequency, incontinence, urgency Integumentary system: no lymphadenopathy, sweats, flushing Musculoskeletal: denies: myalgia, denies any arthralgia Neurological: denies blurry or disturbed vision, numbness/weakness, dizziness Skin: No lumps, bumps or rashes. 12 point review of system was reviewed Objective: Vital signs in last 24 hours: As per nursing note Exam: General appearance: alert, cooperative, no distress, appears stated age Head: normocephalic, without obvious abnormality, atraumatic Eyes: conjunctivae/corneas clear, EOM's intact Ears: normal external ear canals AU Nose: Nares normal. Septum midline. Mucosa normal. No drainage or sinus tenderness Throat: Lips, mucosa, and tongue normal. Teeth and gums normal Neck: supple, symmetrical, trachea midline. Lungs: clear to auscultation bilaterally Heart: regular rate and rhythm, S1, S2 normal, no murmur, click, rub or gallop Abdomen: soft, non-tender. Bowel sounds normal. No masses, No organomegaly Extremities: extremities normal, atraumatic, mild swelling in the right lower extremity Skin: Skin color, texture, turgor normal. Lymph nodes: No lymphadenopathy Neuro: No obvious focal deficit Exam as above PATH LABS Labs from December 02 showed WBC 6.0 hemoglobin 15.7 hematocrit 46.3 platelet 204,000 creatinine 0.9. Labs from March 17 showed WBC 7.2 hemoglobin 15.3 hematocrit 45.7 platelet 191,000 Labs from September 14 showed WBC 6.7 hemoglobin 15.8 hematocrit 47.3 platelet 207,000 creatinine 0.9 Labs from June 28 showed WBC 5.9 hemoglobin 15.5 hematocrit 46.8 platelet 225,000 Labs from February 07 showed hemoglobin 15 Labs from August 01 showed WBC 7.2 hemoglobin 15.3 platelet 229,000 creatinine 0.9 Labs from January 30 showed WBC 7.8 hemoglobin 14.7 platelets 228,000 creatinine 0.8 Labs from June 09 showed hematocrit 44.1 creatinine 0.8 Labs from January 13 showed WBC 3.4 hemoglobin 14.3 hematocrit 43.0 platelet 227,000 creatinine 0.8 Labs from May 04 showed WBC 7.2 hemoglobin 14.3 platelet 234,000 Labs from May 30 showed WBC 6.6 hemoglobin 13.5 platelet 270,000 creatinine 0.8 Labs from November 19 showed hemoglobin 14.5 hematocrit 45.5 Labs from May 19 showed hemoglobin 14.6 hematocrit 44.7 creatinine 0.9 Assessment: Plan: Patient Active Problem List Diagnosis Date Noted Other primary thrombophilia 03/17/2019 Erythrocytosis 10/01/2017 Acute deep vein thrombosis (DVT) of femoral vein of right lower extremity ([facility]/HCC) 07/06/2016 Diarrhea 11/24/2011 Adenomatous polyp of colon 11/24/2011 Overview Note: 12/2014: diminutive adenoma. Defer follow up screening colonoscopy on basis of age? 12/2011: Small adenoma. 07/2007: Small cecal adenoma, mild tic IH. 2002: IH, mild-mod tics. 1997: neg. Family history of colon cancer 11/24/2011 Overview Note: Mom @ 79 History of pulmonary embolism and right lower extremity DVT originally diagnosed in June 2016 withrecurrence of the disease in May 2018. Right lower extremity Doppler study done in February 2024 showed no evidence of DVT. Left lower extremity Doppler study done in October 2023 showed chronic left superficial femoral veinDVT. Patient will continue Eliquis 5 mg twice a day for long-term duration due to risk of thromboembolicevents due to relative immobility. She is clinically asymptomatic with no evidence of acute DVT. Imaging studies will be done on symptoms basis. Secondary erythrocytosis. Hematocrit is stable. No need for phlebotomy. Follow-up in 6 months. 05/19/2024 Mansoor Conde MD documented in this encounter Plan of Treatment Upcoming Encounters Date Type Department Care Team (Late st Contact Info) Description 11/27/2024 1:15 PM CDT Office Visit [facility] Oncology and Hematology - [place] [address] [facility] [address] [place] [address] Mansoor Conde MD [address] [facility] [address] [place] [address] Scheduled Orders Name Type Priority Associated Diagnoses Orde r Schedule CBC WITHOUT DIFFERENTIAL Lab Stat Acute deep vein thrombosis (DVT) of femoral vein of right lower extremity (CMS/HCC) Expected: 11/19/2024, Expires: 05/19/2025 BASIC METABOLIC PANEL Lab Stat Acute deep vein thrombosis (DVT) of femoral vein of right lower extremity (CMS/HCC) Expected: 11/19/2024, Expires: 05/19/2025 CBC WITHOUT DIFFERENTIAL Lab Stat Acute deep vein thrombosis (DVT) of femoral vein of right lower extremity (CMS/HCC) Expected: 11/19/2024, Expires: 05/19/2025 BASIC METABOLIC PANEL Lab Stat Acute deep vein thrombosis (DVT) of femoral vein of right lower extremity (CMS/HCC) Expected: 11/19/2024, Expires: 05/19/2025 documented as of this encounter Visit Diagnoses Diagnosis Acute deep vein thrombosis (DVT) of femoral vein of right lower extremity (CMS/HCC)- Primary documented in this encounter Care Teams Abstract Writer Relationship Specialty Start Date End Date Alexander Calhoun MD [address] [place] [phone] PCP - General Internal Medicine 05/29/18 documented as of this encounter
--- OUTSIDE RECORDS SUMMARY | 2024-05-19 14:25 | XMS_ITS | Encounter Summary ---
Author Organization [facility] Address 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 Gender Identity Not on file Sexual Orientation Not on file documented as of this encounter Plan of Treatment Upcoming Encounters Date Type Department Care Team (Late st Contact Info) Description 11/27/2024 1:15 PM CDT Office Visit [facility] Oncology and Hematology - Charanjit [address] [facility] [address] [place] [address] Mansoor Conde MD [address] [facility] [address] [place] [address] documented as of this encounter Visit Diagnoses Not on filedocumented in this encounter Care Teams Pathology Technician Relationship Specialty Start Date End Date Alexander Calhoun MD [address] [place] [address] PCP - General Internal Medicine 05/29/18 documented as of this encounter
--- OUTSIDE RECORDS SUMMARY | 2024-05-19 14:25 | XMS_ITS | Encounter Summary ---
Author Organization [facility] Address [address] [place] [address] Care Team Providers Care General Engineering Teacher Name Role Phone Alexander Calhoun MD Primary Care Provider [phone] Encounter Details Date Type Department Care Team (Late Contact Info) Description 09/06/2022 MyChart Message Enc [facility] Medical Group [facility] [address] [place], [place] [phone] Hum, [facility] Provider Air Quality Message Social History [...] Information Value Date Recorded Sex Assigned at Female 04/24/2024 5:48 PM DOCTOR OF NURSE ANESTHESIA PRACTICE Legal Sex Female 4:58 PM CDT Gender Identity Not on file Sexual Orientation Not on file documented as of this encounter Plan of Treatment Upcoming Encounters Date Type Department Care Team (Late Contact Info) Description 09/08/2024 11:00 AM CDT Office Visit [facility] Medical [facility] Family & Internal Medicine [address] [phone] Alexander Clahoun MD [address] [place] [address] documented as of this encounter Visit Diagnoses Not on filedocumented in this encounter Additional Health Concerns Assessment Noted Time PHQ-9 Depression Total Score: 6 04/24/19 23 11:42 AM DOCTOR OF NURSE ANESTHESIA PRACTICE documented as of this encounter Care Teams General Engineering Teacher Relationship Specialty Start Date End Date Alexander Calhoun MD [address] [place] [address] PCP - General INTERNAL MEDICINE 04/22/18 documented as of this encounter
--- OUTSIDE RECORDS SUMMARY | 2024-05-19 14:25 | XMS_ITS | Referral Summary ---
Author Organization [facility] [address] Address [address] [place] [address] Care Team Providers Care Nylon Hot Wire Cutter Name Role Phone Alexander Calhoun MD Primary Care Provider [phone] Encounters Date Type Department Care Team Description 03/14/2024 1:30 PM BENCH MOLDER APPRENTICE - 03/14/2024 11:59 PM BENCH MOLDER APPRENTICE Hospital Encounter [facility] [place] - Breast Imaging [address] [facility] [address] [place] [address] Abnormal mammogram; Mass of right breast, unspecified [...] Overview (07/12/2018): Overview: Mom @ 80 Immunizations Immunization Administration Dates Next Due Influenza, Unspecified 12/14/2017 Social History Tobacco Use Types Packs/Day Years Used Date Smoking Tobacco: Never Smokeless Tobacco: Never Tobacco Cessation:Counseling Given: Not Answered Alcohol Use Standard Drinks/Week Comments No 0 (1 standard drink = 0.6 oz pur e alcohol) Comments No Sex and Gender Information Value Date Recorded Sex Assigned at Not on file Legal Sex Female 2:19 AM BENCH MOLDER APPRENTICE Gender Identity Not on file Sexual [...] on file Medical Devices Implanted Type Area Air Brake Rigger Device Identifier Shelf Expiration Date Model / Serial / Lot Bard Peripheral Vascular Ultraclip Bard 17ga 10cm 2 Trigger Permanent Ultrasound [id number] - [id number] Implanted:Qty: 1 on 05/11/2022 at [facility] [employer] [id number] / / Procedures Procedure Name Priority Date/Time Associated Diagnosis Comments DIAGNOSTIC MAMMOGRAM BILATERAL W JEREMY Schedule Routine, Read Routine (OP Routine) 03/14/2024 3:04 PM BENCH MOLDER APPRENTICE Abnormal mammogram Mass of right breast, unspecified quadrant from Last 3 Months Results * Diagnostic Mammogram Bilateral W Jeremy (03/14/2024 3:04 PM BENCH MOLDER APPRENTICE) Anatomical Region Laterality Modality Breast Bilateral Mammography 03/14/2024 3:09 PM BENCH MOLDER APPRENTICE Impressions 03/14/2024 3:09 PM BENCH MOLDER APPRENTICE 1. Left breast calcifications are benign. 2. No evidence of malignancy in either breast. OVERALL FINAL ASSESSMENT: BI-RADS Category 2: Benign. RECOMMENDATION: Continued clinical follow-up is recommended. Dr. Gutierrez discussed the above findings and recommendations with the patient. Electronically signed by: Lula Gutierrez M.D. Narrative 03/14/2024 3:09 PM BENCH MOLDER APPRENTICE EXAMINATION: BILATERAL DIGITAL DIAGNOSTIC MAMMOGRAM INCLUDING CAD [...] signed by: Lula Gutierrez M.D. Lexie Andrew INVESTMENT CONSULTANT IMG MAMMO PROCEDURES Final Result from Last 3 Months Insurance MEDICARE [facility] Address: [address] [address] [place] [address] [facility] MEDICARE [facility] MEDICARE [facility] MEDICARE Care Teams Nylon Hot Wire Cutter Relationship Specialty Start Date End Date Alexander Calhoun MD [address] [place], [place] [phone] PCP - General Internal Medicine 07/15/18
--- OUTSIDE RECORDS SUMMARY | 2024-05-19 14:25 | XMS_ITS | Clinical Summary ---
Author Organization [facility] Address [address] [place] [address] Phone Care Team Providers Care Content Development Manager Name Role Phone Alexander Calhoun MD Primary Care Provider [phone] Allergies No known active allergies Medications ezetimibe [...] Encounters Date Type Department Care Team Description 05/19/2024 1:00 PM CDT Office Visit [facility] Oncology and Hematology [facility] [address] [address] Mansoor Conde MD Acute deep vein thrombosis (DVT) of femoral vein of right lower extremity (CMS/HCC) (Primary Dx) 04/29/2024 External Device Data STL ABSTRACTION Provider, Abstract 04/03/2024 External Device Data STL ABSTRACTION Provider, Abstract 04/01/2024 External Device Data STL ABSTRACTION Provider, Abstract from Last 3 Months Family History Medical [...] on file Legal Sex Female 4:11 AM ELECTION CLERK Gender Identity Not on file Sexual [...] 12.8 oz) 05/19/2024 1:13 PM CDT Height 165.1 cm (5' 5 ) 08/01/2021 11:2 6 AM CDT Body Mass Index 30.42 08/01/2021 11:26 AM CDT Plan of Treatment Upcoming Encounters Date Type Department Care Team (Late st Contact Info) Description 11/27/2024 1:15 PM CDT Office Visit [facility] Oncology and Hematology - Charanjit [address] [facility] [address] [place] [address] Mansoor Conde MD [address] [facility] [address] [place] [address] Health Maintenance Due Date Last Done Comments DTAP/TDAP/TD VACCINES (1 - Tdap) 12/28/1955 OSTEOPOROSIS SCREENING 2001 RSV VACCINE (60+ or ) (1 - 1-dose 75+ series) 12/28/2011 ZOSTER VACCINE (2 of 3) 03/05/2015 01/08/2015 PNEUMOCOCCAL VACCINE 50+ YEA RS (2 of 2 - PCV) 01/15/2016 01/14/2015 COLORECTAL SCREENING 12/18/2019 12/17/2014, 12/17/2014, 12/20/2011, Additional history exists Medicare Advantage ([place]) Preventative Visit/Annual Wellness Visit 03/12/2024 08/14/2000 INFLUENZA VACCINE Completed 12/20/2023, , 12/22/2018, Additional history exists Procedures Procedure Name Priority Date/Time Associated Diagnosis Comments ENDOSCOPY, COLON, SCREENING Routine 12/17/2014 from Last 3 Months or Most Recently Relevant to Health Maintenance Results * (ABNORMAL) ENDOSCOPY, COLON, SCREENING (12/17/2014) Alexander Cee MD GI PROCEDURE ORDERABLES Edited R esult - Final [facility] from Last 3 Months or Most Recently Relevant to Health Maintenance Insurance [facility] Care Teams Content Development Manager Relationship Specialty Start Date End Date Alexander Calhoun MD [address] [place] [phone] PCP - General Internal Medicine 05/29/18
--- OUTSIDE RECORDS SUMMARY | 2024-05-19 14:25 | XMS_ITS | Encounter Summary ---
Author Organization [facility] Address 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 Gender Identity Not on file Sexual Orientation Not on file documented as of this encounter Plan of Treatment Upcoming Encounters Date Type Department Care Team (Late st Contact Info) Description 11/27/2024 1:15 PM CDT Office Visit [facility] Oncology and Hematology - Charanjit [address] [facility] [address] [place] [address] Mansoor Conde MD [address] [facility] [address] [place] [address] documented as of this encounter Visit Diagnoses Not on filedocumented in this encounter Care Teams Nail Sticker Relationship Specialty Start Date End Date Alexander Calhoun MD [address] [place] [address] PCP - General Internal Medicine 05/29/18 documented as of this encounter
--- OUTSIDE RECORDS SUMMARY | 2024-05-19 14:25 | XMS_ITS | Patient Health Record ---
Author Organization [facility] Address [address] [place] [address] Care Team Providers Care Incinerator Operator Name Role Phone NON STAFF, PHYSICIAN Primary [...] Problem COPD - Chronic obstructive pulmonary disease (83089996) COPD (chronic obstructive pulmonary disease) (J44.9) Active confirmed Problem Allergic rhinitis (69781382) Allergic rhinitis (J30.9) Active confirmed Problem Insomnia (375785801) Insomnia (G47.00) Active confirmed Problem Anxiety (31775069) Anxiety (F41.9) Active confirmed Problem Arthralgia of the pelvic region and thigh (310969378) Bilateral hip pain (M25.551) Active confirmed Problem Hemorrhoid (54611794) Hemorrhoid (K64.9) Active confirmed Problem Bursitis (39255393) Anserine bursitis (M71.50) Active confirmed Problem Essential hypertension (65437514) Essential hypertension (I10) Active confirmed Problem Obstructive sleep apnea (14815860) Obstructive sleep apnea (G47.33) Active confirmed Problem 053193532 History of pulmonary embolism (Z86.711) Active confirmed Problem 369453718 Recurrent UTI (N39.0) Active confirmed No sx [...] go with the urine sample. Problem Alopecia (54974989) Alopecia (L65.9) Active confirmed Problem 918610093 History of DVT (deep vein thrombosis) (Z86.718) [...] and doffing of this. Problem Unsteady gait (59694252) Unsteady gait (R26.81) Active confirmed Problem Hard of hearing (84170600) Hard of hearing (H91.90) Active confirmed Problem Mixed hyperlipidemia (508793019) Mixed hyperlipidemia (E78.2) Active confirmed Problem 402644261 History of colon polyps (Z86.010) Active confirmed I advised against ongoing routine colon cancer screening with colonscopy, given her advanced age and comorbidities . Discussed how the risk of colon perf goes up with age. Problem Irritable bowel syndrome with diarrhea (066515629) Irritable bowel syndrome with diarrhea (K58.0) Active confirmed Problem Mild recurrent major depression (44532920) Mild episode of recurrent major depressive disorder (F33.0) Active confirmed Problem Pulmonary hypertension (66306487) Mild pulmonary hypertension (I27.20) Active confirmed Plan Of Treatment No Information Insurance Providers Payer Name Payer Address Payer Phone Subscriber Number Group Number Insured Name Patient Relationship to Insured Coverage Start Date Coverage End Date [facility] AD[facility] PPO [address] [address] [place] [address] [id number] CitrusDee Dee zapien Self - patient is the insured MEDICARE A [address] [place] [id number] Dee Dee Self - patient is the insured Medical (General) History Medical History History ICD Code Bilateral Upper Blepharoplasty Ptosis-Ey e Exam 01/16/20 RLE DVT 2016 and 05/2018 High Cholesterol Arthritis in Back, Knees, Hips COPD Pulmonary Embolism 05/2018 Insomnia Alopecia Anserine Bursitis Anxiety Bilateral Hip Pain Depression [place] of Hearing Hyperlipidemia Hypertension Irritable Bowel Syndrome w/Diarrhea Post-Menopausal Unsteady Gait Hx of MARICEL Allergic Rhinitis Dyspnea on Exertion Mild Pumonary Hypertion-Echo 2016 Surgical History Surgery Date(Month/Year) Cholecystectomy Appendectomy
--- OUTSIDE RECORDS SUMMARY | 2024-05-19 14:25 | XMS_ITS | Encounter Summary ---
Author Organization [facility] Address [address] [place] [address] Care Team Providers Care Decision Analyst Name Role Phone Alexander Calhoun MD Primary Care Provider [phone] Encounter Details Date Type Department Care Team (Latest Contact Info) Description 02/24/2022 eBuddy Message Enc [facility] Family & Internal Medicine [facility] [address] [place] [address] Alexander Calhoun MD [address] [place] [address] Waldrop Social [...] Sex Assigned at Female 04/24/2024 5:48 PM PRINCIPAL RESEARCH ECONOMIST Legal Sex Female 4:58 PM CDT Gender Identity Not on file Sexual Orientation Not on file documented as of this encounter Progress Notes * Julianna Humphrey MA - 02/27/2022 8:35 AM CSTFrom: Dee Dee Sánchez To: Dr. Alexander Calhoun Sent: 02/24/2022 3:30 PM PRINCIPAL RESEARCH ECONOMIST Subject: Referral to Dr. Benjie Waldrop has not received the referral for the biopsy. Please fax the referral and all records to Dr. Waldrop at [phone]. Thank you. CIPAL RESEARCH ECONOMIST documented in this encounter Plan of Treatment Upcoming Encounters Date Type Department Care Team (Late st Contact Info) Description 09/08/2024 11:00 AM CDT Office Visit [facility] Family & Internal Medicine - [address] [address] Alexander Calhoun MD [address] [place] [address] documented as of this encounter Visit Diagnoses Not on filedocumented in this encounter Additional Health Concerns Assessment Noted Time PHQ-9 Depression Total Score: 1 05/02/19 22 11:35 AM PRINCIPAL RESEARCH ECONOMIST documented as of this encounter Care Teams Decision Analyst Relationship Specialty Start Date End Date Alexander Calhoun MD [address] [place] [address] PCP - General INTERNAL MEDICINE 04/22/18 documented as of this encounter
--- OUTSIDE RECORDS SUMMARY | 2024-05-19 14:25 | XMS_ITS | Clinical Summary ---
Author Organization [facility] Address [address] [facility] [place] [address] Care Team Providers Care Route Sales Delivery Driver Name Role Phone Alexander Calhoun MD Primary Care Provider [phone] Source Comments [facility],non-owned Affiliates and Associated Physician Practices is amultiple site organization consisting of ambulatory clinics and hospital sitesin [place], [place], [place] and [place]. This disclosure is being madepursuant to the Care Everywhere program and may not contain all information available regarding this patient. Last updated 17.[facility] Allergies No known active allergies Medications * [...] age to complete this topic Care Teams Route Sales Delivery Driver Relationship Specialty Start Date End Date Alexander Calhoun MD PCP - General 05/15/18
--- OUTSIDE RECORDS SUMMARY | 2024-05-19 14:25 | XMS_ITS | Encounter Summary ---
Author Organization [facility] Address [address] [place] [address] Care Team Providers Care Microarray Analyst Name Role Phone Alexander Calhoun MD Primary Care Provider [phone] Encounter Details Date Type Department Care Team (Late st Contact Info) Description 03/07/2000 Outpatient Historical HIS [facility] PRASAD & Kg Apodaca MD Social History Tobacco Use Types Packs/Day Years Used Date Smoking Tobacco: Never Assessed Comments Unknown Sex and Gender Information Value Date Recorded Sex Assigned at Not on file Legal Sex Female 4:11 AM DENTAL HYGIENIST MOBILE COORDINATOR Gender Identity Not on file Sexual Orientation Not on file documented as of this encounter Plan of Treatment Upcoming Encounters Date Type Department Care Team (Late st Contact Info) Description 11/27/2024 1:15 PM CDT Office Visit [facility] Oncology and Hematology - Charanjit [address] [place] [address] [facility] [address] [place] [address] Mansoor Conde MD [address] [facility] [address] [place] [address] documented as of this encounter Visit Diagnoses Not on filedocumented in this encounter Care Teams Microarray Analyst Relationship Specialty Start Date End Date Alexander Calhoun MD [address] [place] [address] PCP - General Internal Medicine 05/29/18 documented as of this encounter
--- OUTSIDE RECORDS SUMMARY | 2024-05-19 14:25 | XMS_ITS | Patient Health Summary ---
Author Organization [facility] Address [address] [place] [address] Care Team Providers Care Printed Circuit Board Reworker Name Role Phone Alexander Calhoun MD Primary Care Provider Note from [facility],non-owned Affiliates and Associated Physician Practices is amultiple site organization consisting of ambulatory clinics and hospital sitesin [place], [place], [place] and [place]. This disclosure is being madepursuant to the Care Everywhere program and may not contain all information available regarding this patient. Last updated 17.[facility] Allergies No known active allergies Medications * [...] of skin * EYE EXAM(Performed 02/11/2019) * NC DESTROY NERVE FACE MUSCLE, UNILAT(Performed 12/26/2018) Performed for Blepharospasm * NC DESTROY NERVE FACE MUSCLE, UNILAT(Performed 09/27/2018) Performed for Blepharospasm * NC DESTROY NERVE FACE MUSCLE, UNILAT(Performed 05/16/2018) Performed for Blepharospasm * PROC OPH BOTOX PROCEDURE - FACIAL MUSCLE(Performed 05/16/2018) Performed for Blepharospasm * SLU BOTOX PRECERT(Performed 02/13/2018) Performed for Blepharospasm * NC DESTROY NERVE FACE MUSCLE, UNILAT(Performed 02/13/2018) Performed for Blepharospasm * PROC OPH MISC PROCEDURE(Performed 02/13/2018) Performed for Blepharospasm * NC DESTROY NERVE FACE MUSCLE, UNILAT(Performed 11/13/2017) Performed for Blepharospasm * NC DESTROY NERVE FACE MUSCLE, UNILAT(Performed 07/26/2017) Performed for Blepharospasm * DERMATOPATHOLOGY(Performed 11/12/2013) Results * DERMATOPATHOLOGY (04/04/2023 3:33 AM BREAD AND PASTRY BAKER) Only the most recent of2 resultswithin the time period is included. Case Report Dermatopathology Report Case: [id number] Authorizing Provider: Christiano Gan MD Collected: 04/04/2023 03:33 AM Ordering Location: [facility] Received: 04/06/2023 07:39 AM Pathologist: Yesika Lopez MD Specimen: Skin, frontal scalp 3:28 PM [facility]ERMAT[facility]Y [facility]OR[facility] Final Diagnosis Specimen A. 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 The specimen consists of a shave biopsy measuring 12x7x6 mm. Jar 0. 3:28 PM [facility]MAT[facility] Microscopic Description Specimen A. SKIN, frontal scalp: The epidermis shows parakeratosis, full thickness disorderly maturation of keratinocytes, mitoses at different levels, and dyskeratotic cells. There is a column of marked compact hyperkeratosis. 3:28 PM [facility]ERMAT[facility]ATH[facility]Y [facility] Disclaimer An external and internal positive and negative controls are appropriate for the histochemical, immunohistochemical and immunofluorescence stain(s) in this case (if any), except where stated explicitly. The performance characteristics of the stain(s) cited in this report were developed and its performance characteristic determined by the Dermatopathology Laboratory at [facility], directed by Dr. Karin Xiong. These tests need not be, and therefore are not, approved by the [place] Food and Drug Administration. The tests are used for clinical purposes. Billing Codes Specimen Charges Stain Charges 39218 1 4 3:28 PM [facility]ERMATOP[facility] Embedded Images 3:28 PM [facility] Pathology/Cytolo gy TISSUE SPECIMEN FROM SKIN / Unknown 04/04/2023 3:33 AM BREAD AND PASTRY BAKER 04/06/2023 7:39 AM BREAD AND PASTRY BAKER Chirstiano Gan MD LAB - PATHOLOGY/CYTO LOGY ORDERABLES DERMATOPATHOLOGY LABORATORY [facility] - Department of Dermatology [address] [place] [id number] [place] [address] * EYE EXAM (02/11/2019 9:08 AM BREAD AND PASTRY BAKER) Anatomical Region Laterality Modality Other Narrative 02/11/2019 9:08 AM BREAD AND PASTRY BAKER Ordered by an unspecified provider. Scanned Document SCANNING ONLY * NC DESTROY NERVE FACE MUSCLE, UNILAT (12/26/2018 4:19 PM CDT) Narrative Chasity Abrams - 12/26/2018 4:19 PM CDT Chasity Abrams 12/26/2018 7:59 PM Kelsey Waddell MD PROCEDURE/MINOR SURG ICAL ORDERABLES * NC DESTROY NERVE FACE MUSCLE, UNILAT (09/27/2018 10:13 AM CDT) Narrative Kanchan Rnee - 09/27/2018 10:13 AM CDT Kanchan Rene 09/27/2018 10:13 AM Kelsey Waddell MD PROCEDURE/MINOR SURG ICAL ORDERABLES * NC DESTROY NERVE FACE MUSCLE, UNILAT (05/16/2018 12:19 AM BREAD AND PASTRY BAKER) Narrative Dimple Hanks MD - 05/16/2018 12:19 AM BREAD AND PASTRY BAKER Dimple aHnks MD 05/16/2018 12:09 AM Botox Operative Note [...] [facility] OPH BOTOX PRECERT (02/13/2018 9:23 PM BREAD AND PASTRY BAKER) Dimple Walden MD - 02/13/2018 9:23 PM BREAD AND PASTRY BAKER Dimple Hanks MD 02/13/2018 9:23 PM Precert order. Delores Blanco MD PROCEDURE/MINOR SURG ICAL ORDERABLES * NC DESTROY NERVE FACE MUSCLE, UNILAT (02/13/2018 9:22 PM BREAD AND PASTRY BAKER) Dimple Walden MD - 02/13/2018 9:22 PM BREAD AND PASTRY BAKER Dimple Hanks MD 02/13/2018 9:22 PM Botox [...] Blanco MD PROCEDURE/MINOR SURG ICAL ORDERABLES * NC DESTROY NERVE FACE MUSCLE, UNILAT (11/13/2017 5:03 PM CDT) Narrative Kelsey Waddell MD - 11/13/2017 5:03 PM CDT Kelsey Waddell MD 11/13/2017 5:03 PM (No note.) Kelsey Waddell MD PROCEDURE/MINOR SURG ICAL ORDERABLES * NC DESTROY NERVE FACE MUSCLE, UNILAT (07/26/2017 8:16 PM CDT) Narrative Kelsey Waddell MD - 07/26/2017 8:16 PM CDT Kelsey Waddell MD 07/26/2017 8:16 PM (No note.) Kelsey Wadedll MD PROCEDURE/MINOR SURG ICAL ORDERABLES Care Teams Printed Circuit Board Reworker Relationship Specialty Start Date End Date Alexander Calhoun MD PCP - General 05/15/18
--- OUTSIDE RECORDS SUMMARY | 2024-05-19 14:25 | XMS_ITS | Referral Summary ---
Author Organization [facility] Address [address] [place] [address] Care Team Providers Care Manager Order Name Role Phone Alexander Calhoun MD Primary Care Provider [phone] Source Comments [facility],non-owned Affiliates and Associated Physician Practices is amultiple site organization consisting of ambulatory clinics and hospital sitesin [place], [place], [place] and [place]. This disclosure is being madepursuant to the Care Everywhere program and may not contain all information available regarding this patient. Last updated 17.[facility] Allergies No known active allergies Medications * [...] Not on file Administered Medications Care Teams Manager Order Relationship Specialty Start Date End Date Alexander Calhoun MD PCP - General 05/15/18
--- OUTSIDE RECORDS SUMMARY | 2024-05-19 14:25 | XMS_ITS | Clinical Summary ---
Author Organization [facility] Address [address] [place] [address] Care Team Providers Care Property And Casualty Insurance Agent Name Role Phone Alexander Calhoun MD Primary Care Provider [phone] Allergies No known active allergies Medications acetaminophen [...] s:Mild episode of recurrent major depressive disorder Take 1 tablet (20 mg total) by [...] times daily. 180 tablet 02/04/20 24 Active bisoprolol (ZEBETA) 10 MG tabletIndication s:Essential hypertension TAKE 1 TABLET DAILY 90 tablet 04/04/19 25 Active lubiprostone (AMITIZA) 24 MCG capsuleIndicatio ns:Chronic constipation Take 1 capsule (24 mcg total) by mouth 2 (two) times daily with meals for 30 days. 60 capsule 05/01/19 25 025 Active Additional Information Patient not taking.Reported on 05/07/2024 ramelteon (ROZEREM) 8 MG tabletIndication s:Primary insomnia Take 1 tablet (8 mg total) by mouth nightly at bedtime. 90 tablet 1 05/07/19 25 Active ramelteon (ROZEREM) 8 MG tabletIndication s:Primary insomnia Take 1 tablet (8 mg total) by mouth nightly at bedtime. 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 Chronic cough 07/15/2018 Chronic obstructive pulmonary disease ([facility]) 07/15/2018 History of pulmonary embolism 07/15/2018 Non-seasonal allergic rhinitis due to pollen 08/2018 Sleep disorder 07/15/2018 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 ([facility]) 07/15/2018 Erythrocytosis 10/01/2017 Obesity due to excess calories 01/02/2017 Pulmonary embolism ([facility]) 07/09/2016 Bilateral hip pain 01/24/2016 Unsteady gait [...] 02/22/2022 023 Shortness of breath 01/02/2017 02/06/20 Right hand pain 03/21/2016 02/05/2023 Dysuria 03/16/2016 02/05/2023 Screening for endocrine disorder 01/24/2016 11/21/2019 Right leg pain 04/23/2015 02/05/2023 Right calf pain 04/15/2015 02/05/2023 Right knee pain 01/14/2015 02/05/2023 Family history of colon cancer 11/24/2011 02/05/2023 Overview (05/22/2018): Overview: Mom @ 79 Diarrhea 11/24/2011 02/05/2023 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 Patient c/o continued belly issues); Follow Up; Anxiety; Depression; Hypertension; Hyperlipidemia; COPD 05/07/2024 Travel 05/01/[address] [address] Alexander Calhoun MD Prior Authorization (lubiprostone (AMITIZA) 24 MCG capsule) 04/30/[address] [address] Alexander Calhoun MD Advice 04/28/2024 Patient Outreach [facility] Internal [address] [place] [address] Winter Tellez RN ER F/U ([facility] 04/24) 04/24/2024 5:35 PM DRAWING KILN SUPERVISOR - 04/24/2024 7:57 PM DRAWING KILN SUPERVISOR Emergency Health system Emergency Room [address] [place] [address] Shaheed Smith, DO Constipation Discharge Disposition: Home or Self Care (Routine Discharge) 04/24/2024 Travel 04/23/2024 Telephone [facility] Family & Internal Medicine [address] [address] Alexander Calhoun MD Advice 04/20/2024 Scan [facility] INFO SRVCS Scanned, Doc Med Group CT (SCAN); Image (SCAN) 03/17/2024 Scan HEALTH INFO SRVCS Scanned, [facility] from Last 3 Months Immunizations Name Administration Dates Next Due Arexvy Respiratory Syncytial Virus (RSV, adjuvanted) 0.5 mL, PF 03/08/2023 FLUAD (IIV, Trivalent, 0.5 M L Pre-filled Syringe) 12/20/2023 Fluzone High Dose - >Age 65 (Prefilled Syringe) 11/14/2019,12/22/2018 Influenza Adult (Generic) 12/22/2018,07/2017,11/27/2015,2014,11/18/2013 MODERNA COVID-19 (12+) MRNA, LNP-S, PF, 100 MCG/ 0.5 ML DOSE 01/15/2021,05/15/2020,04/16/2020 Pneumococcal (Pneumovax 23) 01/14/2015 Zoster (Zostavax) 248[address] Unt/0.65Ml 01/08/2015 Family History Medical History Relation [...] Date Recorded Patient Health Questionnaire-2 Score 2 05/08/2024 Comments No Sex and Gender Information Value Date Recorded Sex Assigned at Female 04/24/2024 5:48 PM DRAWING KILN SUPERVISOR Legal Sex Female 4:58 PM CDT Gender Identity Not on file Sexual Orientation Not on file Last Filed Vital Signs Vital Sign Reading Time Taken Comments Blood Pressure 120/60 05/07/2024 11:49 AM DRAWING KILN SUPERVISOR Pulse 71 05/07/2024 11:49 AM DRAWING KILN SUPERVISOR Temperature 36.5 C (97.7 F) 05/07/2024 11:49 AM DRAWING KILN SUPERVISOR Respiratory Rate 16 05/07/2024 11:49 AM DRAWING KILN SUPERVISOR Oxygen Saturation 97% 05/07/2024 11:49 AM DRAWING KILN SUPERVISOR Inhaled Oxygen Concentration - - Weight 83.6 kg (184 lb 6.4 oz) 05/07/2024 11:49 AM DRAWING KILN SUPERVISOR Height 162.6 cm (5' 4 ) 05/07/2024 11:49 AM DRAWING KILN SUPERVISOR Body Mass Index 31.65 05/07/2024 11:49 AM DRAWING KILN SUPERVISOR Plan of Treatment Upcoming Encounters Date Type Department Care Team (Late st Contact Info) Description 09/08/2024 11:00 AM CDT Office Visit [facility] Family & Internal Medicine [address] [phone] Alexander Calhoun MD [address] [place] [address] Health Maintenance Due Date Last Done Comments DTaP, Tdap and Td Vaccines (1 - Tdap) 12/28/1954 Annual Medicare Wellness Visit 2001 Zoster Vaccines (2 of 3) 03/05/2015 01/08/2015 Pneumococcal Vaccine: 65+ Years (2 of 2 - PCV) 01/15/2016 01/14/2015 RSV Immunization or 60+ Years Completed 03/08/2023 COVID-19 Vaccine Completed 12/20/2023, , 12/23/2021, Additional history exists Influenza Adult Completed 12/20/2023, 06/2019, 12/22/2018, Additional history exists PHQ-2 (Physician [place]) Completed 05/08/2024 Meningococcal B Vaccine Aged Out No l onger eligible based on patient's age to complete this topic Meningococcal Vaccine Aged Out No dieter monica eligible based on patient's age to complete this topic RSV Immunizations Under 20 Months Aged Out No longer eligible based on patient's age to complete this topic Procedures Procedure Name Priority Date/Time Associated Diagnosis Comments TSH W/REFLEX STAT 04/24/2024 6:13 PM DRAWING KILN SUPERVISOR LIPASE STAT 04/24/2024 6:13 PM DRAWING KILN SUPERVISOR COMPREHENSIVE METABOLIC PANEL STAT 04/24/2024 6:13 PM DRAWING KILN SUPERVISOR CBC W/DIFF AUTOMATED STAT 04/24/2024 6:13 [address] CT GENERIC 04/20/2024 CT GENERIC 04/20/2024 IMAGE GENERIC 04/20/2024 from Last 3 Months Results * TSH W/REFLEX (04/24/2024 6:13 PM DRAWING KILN SUPERVISOR) TSH 2.114 0.358 - 3.74 uIU/ML 04/24/2024 7:05 PM DRAWING KILN SUPERVISOR [facility] Comment: HIGH DOSES OF BIOTIN MAY INTERFERE WITH THIS TEST RESULT. CORRELATION TO CLINICAL HISTORY AND PRESENTATION RECOMMENDED. FREE T4 NOT INDICATED 04/24/2024 6:13 PM DRAWING KILN SUPERVISOR us Shaheed Smith DO LABORATORY Final Result [facility] [address] [place] [address], [place] [phone] * (ABNORMAL) COMPREHENSIVE METABOLIC PANEL (04/24/2024 6:13 PM DRAWING KILN SUPERVISOR) GLUCOSE 116(H) 70 - 99 MG/DL 04/24/2024 6:47 PM DRAWING KILN SUPERVISOR [facility] BUN 19(H) 7 - 18 MG/DL 04/24/2024 6:47 PM [facility] CREATININE S/P/B 0.81 0.55 - 1.02 MG/DL 04/24/2024 6:47 PM [facility] SODIUM S/P/B 140 136 - 145 MMOL/L 04/24/2024 6:47 PM [facility] POTASSIUM S/P/B 3.8 3.5 - 5.1 MMOL/L 04/24/2024 6:47 PM [facility] CHLORIDE S/P/B 101 100 - 108 MMOL/L 04/24/2024 6:47 PM [facility] CO2 27.1 21 - 32 MMOL/L 04/24/2024 6:47 PM [facility] CALCIUM S/P/B 9.5 8.5 - 10.1 MG/DL 04/24/2024 6:47 PM [facility] BILIRUBIN TOTAL S/P/B 0.5 0.2 - 1.2 MG/DL 04/24/2024 6:47 PM [facility] TOTAL PROTEIN S/P/B 6.5 6.4 - 8.2 G/DL 04/24/2024 6:47 PM [facility] ALBUMIN S/P/B 3.3(L) 3.4 - 5.0 G/DL 04/24/2024 6:47 PM [facility] AST 7(L) 15 - 37 U/L 04/24/2024 6:47 PM [facility] ALT 17 14 - 55 U/L 04/24/2024 6:47 PM [facility] ALKALINE PHOSPHATASE S/P/B 58 50 - 136 U/L 04/24/2024 6:47 PM [facility] ANION GAP 11.9 5 - 15 MMOL/L 04/24/2024 6:47 PM [facility] BUN CREATININE RATIO 23.5 6 - 26 04/24/2024 6:47 PM [facility] A/G RATIO 1.0 1.0 - 2.0 RATIO 04/24/2024 6:47 PM [facility] GFR ESTIMATE 70(L) >90 ML/MIN/1.7 3 M2 04/24/2024 6:47 PM [facility] Comment: NOTE: eGFR is not calculated for patients <18 years of age. This is an estimated GFR calculation using the new CKD EPI creatinine equation without race and so does not require a correction factor for race. This estimated GFR should not be used for calculating drug doses. 04/24/2024 6:13 PM DRAWING KILN SUPERVISOR Shaheed Smith DO LABORATORY Final Result [facility] [address] [place] [address], [place] [phone] * (ABNORMAL) CBC W/DIFF AUTOMATED (04/24/2024 6:13 PM DRAWING KILN SUPERVISOR) WBC 8.68 4.4 - 11.0 x10'3/uL 04/24/2024 6:22 PM [facility] RBC 4.52 4.50 - 5.10 x10'6/uL 04/24/2024 6:22 PM [facility] HGB 13.9 12.3 - 15.3 G/DL 04/24/2024 6:22 PM [facility] HCT 42.0 35.9 - 44.6 % 04/24/2024 6:22 PM [facility] MCV 92.9 80.0 - 96.0 FL 04/24/2024 6:22 PM [facility] MCH 30.8 25.3 - 30.9 PG 04/24/2024 6:22 PM [facility] MCHC 33.1 31.0 - 34.1 G/DL 04/24/2024 6:22 PM [facility] RDW 13.5 12.4 - 15.1 % 04/24/2024 6:22 PM [facility] PLT 224 151 - 353 x10'3/uL 04/24/2024 6:22 PM [facility] MPV 10.5 9.6 - 12.0 FL 04/24/2024 6:22 PM [facility] SEG NEUTROPHILS 79(H) 42 - 72 % 6:36 PM [facility] LYMPHOCYTES 8(L) 15.8 - 45.0 % 04/24/2024 6:36 PM [facility] MONOCYTES 11 5.7 - 12.5 % 04/24/2024 6:36 PM [facility] ATYP. LYMPHS 2 % 04/24/2024 6:36 PM [facility] ABS. NEUTROPHILS 6.86(H) 1.40 - 6.00 x10'3/uL 04/24/2024 6:36 PM [facility] ABS. LYMPHOCYTES 0.87 0.80 - 4.70 x10'3/uL 04/24/2024 6:36 PM [facility] PLT MORPH. NORMAL 04/24/2024 6:36 PM [facility] RBC MORPHOLOGY NORMAL 04/24/2024 6:36 PM [facility] WBC MORPHOLOGY NORMAL 04/24/2024 6:36 PM [facility] 04/24/2024 6:13 PM DRAWING KILN SUPERVISOR Shaheed Smith DO LABORATORY Final Result Performing Organization Address City/[facility]/ZIP Co de Phone Number [facility] [address] [place] [address], [place] [phone] * LIPASE (04/24/2024 6:13 PM DRAWING KILN SUPERVISOR) LIPASE 41 16 - 77 UNITS/L 04/24/2024 6:47 PM DRAWING KILN SUPERVISOR [facility] 04/24/2024 6:13 PM DRAWING KILN SUPERVISOR Shaheed Smith DO LABORATORY Final Result Performing Organization Address [facility] Co de Phone Number [facility] [address] [place] [address], [place] [phone] * CT GENERIC (04/20/2024) Only the most recent of2 resultswithin the time period is included. Anatomical Region Laterality Modality Other 04/20/2024 [email or web address] Scanned SCANNING Final Resu lt * IMAGE GENERIC (04/20/2024) Anatomical Region Laterality Modality Other 04/20/2024 [email or web address] Scanned SCANNING Final Resu lt from Last 3 Months Insurance [employer] Care Teams Property And Casualty Insurance Agent Relationship Specialty Start Date End Date Alexander Calhoun MD [address] [place] [address] PCP - General INTERNAL MEDICINE 04/22/18
--- OUTSIDE RECORDS SUMMARY | 2024-05-19 14:25 | XMS_ITS | Clinical Summary ---
Author Organization [facility] [address] Address [address] [place] [address] Care Team Providers Care Civil Preparedness Officer Name Role Phone Alexander Calhoun MD Primary Care Provider [phone] Allergies Active Allergy Reactions Criticality Noted Date [...] Department Care Team Description 03/14/2024 1:30 PM SALON SHAMPOO ASSISTANT - 03/14/2024 11:59 PM SALON SHAMPOO ASSISTANT Hospital Encounter [facility] - Breast Imaging [address] [facility] [address] [place] [address] Abnormal mammogram; Mass of right breast, unspecified quadrant Discharge Disposition: Discharge to home or self care from Last 3 Months Immunizations Immunization Administration Dates Next Due Influenza, [...] on file Legal Sex Female 2:19 AM SALON SHAMPOO ASSISTANT Gender Identity Not on file Sexual [...] history exists Medical Devices Implanted Type Area Print Designer Device Identifier Shelf Expiration Date Model / Serial / Lot Bard Peripheral Vascular Ultraclip Bard 17ga 10cm 2 Trigger Permanent Ultrasound [id number] - [id number] Implanted:Qty: 1 on 05/11/2022 at [facility] [employer] Peripheral Vascular [id number] / / Procedures Procedure Name Priority Date/Time Associated Diagnosis Comments DIAGNOSTIC MAMMOGRAM BILATERAL W JEREMY Schedule Routine, Read Routine (OP Routine) 03/14/2024 3:04 PM SALON SHAMPOO ASSISTANT Abnormal mammogram Mass of right breast, unspecified quadrant from Last 3 Months Results * Diagnostic Mammogram Bilateral W Jeremy (03/14/2024 3:04 PM SALON SHAMPOO ASSISTANT) Anatomical Region Laterality Modality Breast Bilateral Mammography 03/14/2024 3:09 PM SALON SHAMPOO ASSISTANT Impressions 03/14/2024 3:09 PM SALON SHAMPOO ASSISTANT 1. Left breast calcifications are benign. 2. No evidence of malignancy in either breast. OVERALL FINAL ASSESSMENT: BI-RADS Category 2: Benign. RECOMMENDATION: Continued clinical follow-up is recommended. Dr. Gutierrez discussed the above findings and recommendations with the patient. Electronically signed by: Lula Gutierrez M.D. Narrative 03/14/2024 3:09 PM SALON SHAMPOO ASSISTANT EXAMINATION: BILATERAL DIGITAL DIAGNOSTIC MAMMOGRAM INCLUDING [...] Last 3 Months Insurance MEDICARE [facility] MEDICARE Address: [address] [address] [place] [address] AET MEDICARE T MEDICARE AET MEDICARE Care Teams Civil Preparedness Officer Relationship Specialty Start Date End Date Alexander Calhoun MD [address] [place] [address] PCP - General Internal Medicine 07/15/18
--- OUTSIDE RECORDS SUMMARY | 2024-05-19 14:25 | XMS_ITS | Encounter Summary ---
Author Organization [facility] Address [address] [place] [address] Care Team Providers Care Call Center Agent Name Role Phone Alexander Calhoun MD Primary Care Provider [phone] Encounter Details Date Type Department Care Team (Late st Contact Info) Description 08/14/2000 Outpatient Historical HIS MD Miguel HERNANDEZ Stephen, MD Social History Tobacco Use Types Packs/Day Years Used Date Smoking Tobacco: Never Assessed Comments Unknown Sex and Gender Information Value Date Recorded Sex Assigned at Not on file Legal Sex Female 4:11 AM INCOME AUDITOR Gender Identity Not on file Sexual Orientation Not on file documented as of this encounter Plan of Treatment Upcoming Encounters Date Type Department Care Team (Late st Contact Info) Description 11/27/2024 1:15 PM CDT Office Visit [facility] Oncology and Hematology - Charanjit [address] [facility] [address] [place] [address] Mansoor Conde MD [address] [facility] [address] [place] [address] documented as of this encounter Visit Diagnoses Not on filedocumented in this encounter Care Teams Call Center Agent Relationship Specialty Start Date End Date Alexander Calhoun MD [address] [place] [phone] PCP - General Internal Medicine 05/29/18 documented as of this encounter
--- OUTSIDE RECORDS SUMMARY | 2024-05-19 14:25 | XMS_ITS | Encounter Summary ---
Author Organization [facility] Address [address] [place] [address] Care Team Providers Care Shoe Worker Name Role Phone Alexander Calhoun MD Primary Care Provider [phone] Encounter Details Date Type Department Care Team (Late st Contact Info) Description 02/07/2000 Outpatient Historical HIS MD Miguel HERNANDEZ Stephen, MD Social History Tobacco Use Types Packs/Day Years Used Date Smoking Tobacco: Never Assessed Comments Unknown Sex and Gender Information Value Date Recorded Sex Assigned at Not on file Legal Sex Female 4:11 AM TRACK REPAIRER HELPER Gender Identity Not on file Sexual Orientation Not on file documented as of this encounter Plan of Treatment Upcoming Encounters Date Type Department Care Team (Late st Contact Info) Description 11/27/2024 1:15 PM CDT Office Visit [facility] Oncology and Hematology - Charanjit [address] [facility] [address] [place] [address] Mansoor Conde MD [address] [facility] [address] [place] [address] documented as of this encounter Visit Diagnoses Not on filedocumented in this encounter Care Teams Shoe Worker Relationship Specialty Start Date End Date Alexander Calhoun MD [address] [place] [phone] PCP - General Internal Medicine 05/29/18 documented as of this encounter
== END 2024-05-19 12:35 | disposition home or self-care (01) ==
LOC: ANHLAB 12:34
PROVIDERS: PCP Internal Medicine; Visit Provider Internal Medicine Hematology & Oncology
DX: D75.1 Secondary polycythemia (principal)
CPT/HCPCS: 36415; 80047; 85025

== ENCOUNTER 2024-11-26 11:42 | Outpatient (CLI) | payer MEDICARE, SELFPAY ==
[2024-11-26 11:58] LABS: Hematocrit 42.1 % (37.0-47.0); Hemoglobin 14.0 g/dL (12.0-15.0); Mean Corpuscular HGB Conc 33.3 g/dl (32-36); Mean Corpuscular Hemoglobin 30.3 pg (26-34); Mean Corpuscular Volume 91.1 fl (80-100); Platelet Count Result 217 k/mm3 (150-375); Red Blood Count 4.62 M/mm3 (4.2-5.4); White Blood Count 7.0 K/mm3 (4.5-10.0)
[2024-11-26 13:08] LABS: Anion Gap 8 mmol/L (4-12); Blood Urea Nitrogen 31 mg/dL (7-17); Calcium 9.5 mg/dL (8.4-10.2); Carbon Dioxide 26 mmol/L (22-30); Chloride 105 mmol/L (98-107); Estimated Glomerular Filt Rate > 60; Glucose 91 mg/dL (65-110); Potassium 4.4 mmol/L (3.4-5.0); Sodium 139 mmol/L (137-145)
== END 2024-11-26 11:43 | disposition home or self-care (01) ==
LOC: ANHLAB 11:42
PROVIDERS: PCP Internal Medicine; Visit Provider Internal Medicine Hematology & Oncology
DX: I82.411 Acute embolism and thrombosis of right femoral vein (principal)
CPT/HCPCS: 36415; 80048; 85027